=== PATIENT | male | born 1950 | race Caucasian/White ===

== ENCOUNTER → 2018-03-05 12:52 | Outpatient (CLI) | payer MEDICARE, BC, SELFPAY ==
[2018-03-05 14:18] LABS: Alanine Aminotransferase 36 IU/L (21-72); Albumin 4.2 g/dL (3.5-5.0); Albumin Globulin Ratio 1.6 (1.0-2.8); Alkaline Phosphatase 73 U/L (38-126); Aspartate Aminotransferase 29 IU/L (17-59); BUN Creatinine Ratio 26.3 (6-22); Bilirubin Total 0.7 mg/dL (0.2-1.3); Blood Urea Nitrogen 21 mg/dL (9-20); Calcium 9.3 mg/dL (8.4-10.2); Carbon Dioxide 28 mmol/L (22-32); Chloride 104 mmol/L (98-107); Estimated Glomerular Filt Rate > 60.0 mL/min (>60); Globulin 2.7 g/dL (1.7-4.1); Glucose 140 mg/dL (80-110); HEMOLYSIS < 15 (0-50); Potassium 4.6 mmol/L (3.4-5.1); Sodium 141 mmol/L (137-145); Total Protein 6.9 g/dL (6.3-8.2)
[2018-03-05 14:49] LABS: Thyroid Stimulating Hormone 1.88 uIU/mL (0.47-4.68)
[2018-03-05 15:07] LABS: Vitamin B12 693 pg/mL (239-931)
[2018-03-05 18:21] LABS: Vitamin D 25 Hydroxy (D3) 31.3 ng/mL (30.0-100.0)
== END ==
PROVIDERS: Visit Provider Psychiatry & Neurology Psychiatry
DX: F32.9 Major depressive disorder, single episode, unspecified (principal)
CPT/HCPCS: 36415; 80053; 82306; 82607; 84443

== ENCOUNTER → 2018-05-02 13:33 | Outpatient (CLI) | payer MEDICARE, BC, SELFPAY ==
--- NOTE | 2018-05-02 13:34 | DI.MRI.S_ITS ---
PROCEDURE: MR LUMBAR SPINE WO CON INDICATIONS: Lumbosacral spondylosis TECHNIQUE: Noncontrast sagittal T1 spin echo and T2 fast echo, sagittal STIR, axial T1 and T2 fast spin echo through the lumbar spine. In cases with scoliosis, additional coronal T2 fast spin echo may be performed. COMPARISON: [facility], , L-SPINE 2-3 VIEWS, 02/18/2015, 10:34. FINDINGS: Image quality: Excellent. Alignment and Curvature: Suspect transitional anatomy in Lumbar spine with prominent L1-L2 disc. There is normal bony alignment. Bone Marrow: Marrow is of normal overall signal. No acute vertebral body compression fractures. Spinal Cord: Conus medullaris terminates at the L1-L2 level. Visualized cord demonstrates normal signal and size. Paraspinous Soft Tissues: No paravertebral masses. L1-L2: Preserved disc height. Mild disc desiccation. There is mild posterior disc bulge. The central canal is patent. No foraminal stenosis. L2-L3: Mild loss of disc height and disc desiccation. There is diffuse posterior disc bulge. Mild bilateral facet arthropathy and hypertrophy of ligamentum flavum. The central canal is moderately narrowed. Moderate bilateral foraminal stenosis. L3-L4: Mild loss of disc height and disc desiccation. There is diffuse posterior disc bulge. Mild bilateral facet arthropathy and moderate hypertrophy of ligamentum flavum. The central canal is severely narrowed. Moderate bilateral foraminal stenosis. L4-L5: Mild loss of disc height and moderate disc desiccation. There is diffuse posterior disc bulge. There is superimposed posterior central disc extrusion measuring 4 x 6 x 10 mm. Mild bilateral facet arthropathy and moderate hypertrophy of ligamentum flavum. The central canal is severely narrowed. Moderate bilateral foraminal stenosis. L5-S1: Normal disc height and mild disc desiccation. There is diffuse posterior disc bulge. There is superimposed posterior central disc protrusion. Mild bilateral facet arthropathy and moderate hypertrophy of ligamentum flavum. The central canal is mildly narrowed. Severe right and moderate left foraminal stenosis. IMPRESSION: 1. Multilevel degenerative disc disease and facet arthropathy as described. 2. Severe central canal stenosis at L3-L4 and L4-L5, moderate central canal stenosis at L2-L3. 3. Multilevel foraminal stenosis as described. 4. Suspect transitional anatomy with prominent S1-S2 disc. Please confirm vertebral levels prior to any interventional procedure with surgery. Dictated by: Rojelio Dalton M.D. on 05/02/2018 at 15:08 Approved by: Rojelio Dalton M.D. on 05/02/2018 at 18:25
== END ==
PROVIDERS: Visit Provider Physical Medicine & Rehabilitation
DX: M51.36 Other intervertebral disc degeneration, lumbar region (principal); M51.37 Other intervertebral disc degeneration, lumbosacral region; M48.061 Spinal stenosis, lumbar region without neurogenic claudication; M48.07 Spinal stenosis, lumbosacral region; M47.816 Spondylosis without myelopathy or radiculopathy, lumbar region; M47.817 Spondylosis without myelopathy or radiculopathy, lumbosacral region
CPT/HCPCS: 72148

== ENCOUNTER → 2018-05-05 09:15 | Outpatient (CLI) | payer MEDICARE, BC, SELFPAY ==
[2018-05-05 10:57] LABS: Appearance Urine UA CLEAR; Bilirubin Urine UA NEGATIVE (NEGATIVE); Color Urine UA YELLOW; Glucose Urine UA NEGATIVE (Normal); Hemoglobin A1C% w Est Avg Glu 5.4 % (4.0-6.0); Ketones Urine UA NEGATIVE (NEGATIVE); Leukocyte Esterase Urine UA NEGATIVE (NEGATIVE); Nitrite Urine UA NEGATIVE (Negative); Occult Blood Urine UA NEGATIVE (Negative); Protein Urine UA NEGATIVE (Negative); Specific Gravity Urine UA 1.015 (1.000-1.035); Urobilinogen Urine UA 0.2 E.U./dL (0.2)
[2018-05-05 11:01] LABS: Add Manual Diff / Slide Review NO; Basophils Percent Auto 1.3 % (0-2); Eosinophils Percent Auto 3.3 % (2-4); Hematocrit 48.9 % (41-53); Hemoglobin 16.6 g/dL (13.5-17.5); Mean Corpuscular Hemoglobin 31.7 PG (26-34); Mean Corpuscular Volume 93.2 fL (80-100); Monocytes Percent Auto 7.9 % (3-14); Neutrophils Absolute Auto 3600 /uL (3000-5900); Neutrophils Percent Auto 67.5 % (50-75); Platelet Count 220 X10^3/uL (150-400); Red Blood Cell Count 5.25 X10^6/uL (4.5-5.9); Red Cell Distribution Width 14.5 % (11.6-14.8); White Blood Cell Count 5.3 X10^3/uL (4.5-11.0)
[2018-05-05 11:34] LABS: Alanine Aminotransferase 30 IU/L (21-72); Albumin 4.5 g/dL (3.5-5.0); Albumin Globulin Ratio 1.5 (1.0-2.8); Alkaline Phosphatase 65 U/L (38-126); Aspartate Aminotransferase 33 IU/L (17-59); BUN Creatinine Ratio 27.1 (6-22); Bilirubin Total 0.7 mg/dL (0.2-1.3); Blood Urea Nitrogen 19 mg/dL (9-20); Calcium 9.1 mg/dL (8.4-10.2); Carbon Dioxide 27 mmol/L (22-32); Chloride 102 mmol/L (98-107); Cholesterol 240 mg/dL (140-199); Estimated Glomerular Filt Rate > 60.0 mL/min (>60); Glucose 96 mg/dL (80-110); HDL Cholesterol 48 mg/dL (40-60); HEMOLYSIS < 15 (0-50); LDL Cholesterol Calculated 169 mg/dL (<100); Potassium 4.4 mmol/L (3.4-5.1); Sodium 141 mmol/L (137-145); Total Protein 7.5 g/dL (6.3-8.2); Triglycerides 115 mg/dL (35-150)
[2018-05-05 11:59] LABS: Thyroid Stimulating Hormone 3.21 uIU/mL (0.47-4.68)
== END ==
PROVIDERS: Visit Provider Family Medicine
DX: E78.5 Hyperlipidemia, unspecified (principal); F33.1 Major depressive disorder, recurrent, moderate; R73.9 Hyperglycemia, unspecified; Z51.81 Encounter for therapeutic drug level monitoring; Z12.5 Encounter for screening for malignant neoplasm of prostate
CPT/HCPCS: 36415; 80053; 80061; 81003; 83036; 84153; 84443; 85025; G0103

== ENCOUNTER 2018-06-25 13:37 | Outpatient (CLI) | payer MEDICARE, BC, SELFPAY ==
[2018-06-25] VITALS (9 sets, daily range): BP systolic 136–167; BP diastolic 72–97; PULSE 62–71; RESP 16–18; TEMP 36.1; O2SAT 95–98
--- NOTE | 2018-06-25 13:39 | DI.RAD.S_ITS ---
PROCEDURE: PAIN L/SI FACET INJ/BLK 1STL INDICATIONS: SPONDYLOSIS FINDINGS: Fluoroscopic spot filming was performed to verify placement of spinal needles at the left L4-5 and L5-S1 level(s), as labeled on the films. Appropriate location(s) of the needle tip(s) was confirmed by injection of iodinated contrast. IMPRESSION: Successful left-sided L4 and L5 facet joint injections for epidural perineural steroid administration. Dictated by: Blake Bradford M.D. on 06/25/2018 at 16:57 Approved by: Blake Bradford M.D. on 06/25/2018 at 16:58
[2018-06-25] MEDS: MIDAZOLAM 5 MG/5 ML VIAL IV (14:29)
[2018-06-25] MEDS: BETAMETHASONE 30 MG/5 ML MDV 12 MG INJ (14:35)
[2018-06-25] MEDS: LIDOCAINE 1% 20 ML INJ 10 ML INJ (14:35)
[2018-06-25] MEDS: IOPAMIDOL 15 ML VIAL 3 ML INJ (14:35)
[2018-06-25] MEDS: BUPIVACAINE 0.25% (PF) VIAL 2 ML INJ (14:36)
--- NOTE | 2018-06-25 14:42 | P.PCN_ITS ---
Procedures Date/Time Date of procedure: 06/25/18 Time of procedure: 14:42 General Procedure description: PREOP DIAGNOSIS 1. FACET ARTHROPATHY, 2. AXIAL LBP, 3. MULTILEVEL DDD, POST OP DIAGNOSIS 1. FACET ARTHROPATHY, 2. AXIAL LBP, 3. MULTILEVEL DDD, PROCEDURES 1. FLUORSCOPICALLY GUIDED CONTRAST CONTROLLED FACET JOINT INJECTIONS LEFT L4/5 , L5/S1 SURGEON: Nilesh Jones, DO INDICATIONS Ashutosh is referred by Dr. Vieira for treatment of Axial LBP FINDINGS Multilevel Facet Arthropathy with Clinically significant axial LBP DESCRIPTION OF PROCEDURE Fluoroscopically guided, contrast-controlled left L4/5, L5/S1 facet joint injections. Following denial of allergy and review of potential side effects and complications, including, but not necessarily limited to, infection, allergic reaction, local tissue breakdown, stroke, temporary or permanent nerve injury, paralysis, and possible , the patient indicated that the patient understood and agreed to proceed. An informed consent document was signed by the patient, witnessed by a nurse, and placed in the patient's chart. Additionally, other treatment options including medications, modalities, and physical therapy were reviewed with the patient. After review of previous anaesthesic history and IV conscious sedation the patient was deemed safe to proceed with todays procedure with IV conscious sedation as ASA class II designation. Safety time-out was performed to confirm patient ID, procedure to be performed and site of procedure. IV sedation was accomplished with a combination of 5mg was administered by the RN after DO order , titrated to patient comfort during the course of the procedure while the patient remained responsive to all verbal commands. In the prone position, following sterile prep and drape of the lumbar region, the posterior aspect of the left L4/5, L5/S1 facet joints were identified fluoroscopically. The skin was anesthetized via a 25-gauge 1.5-inch needle with 1% lidocaine solution into the corresponding facet joints. At this point, a 22-gauge 3.5-inch spinal needle was atraumatically introduced and advanced under fluoroscopic guidance into the corresponding facet joints. Following negative aspiration, injections of approximately 0.2-cc of Isovue 200 confirmed interarticular placement without vascular uptake. Radiological data, including multiple fluoroscopic views of the lumbosacral spine, reveal a spinal needle at the left L4/5, L5/S1 facet joints. Subsequent views show flow of contrast material both superiorly and inferiorly within the joint space without vascular or intrathecal uptake. At this point, a total of 0.5 cc including a mixture of 0.25cc Marcaine and 0.25cc betamethasone was injected without complication into each of the corresponding facet joints. The procedure tolerated the procedure well without signs or symptoms of complications prior to transfer to the recovery area continued monitoring without incident. The patient was then transferred to the recovery area where they were observed for an appropriate period of time after the injection. The patient reported a VAS score of 7 prior to the procedure and a post-procedure VAS of 0. Total Fluoroscopy Time: 12.7 seconds Total Conscious Sedation Time: 24min POST OP INSTRUCTIONS The patient was provided a Pain Log to continue to record their response to the target-specific procedure prior to follow-up visit with their referring physician. Additionally, specific post-injection care instructions and a contact number to our office were provided if concerns arise regarding possible complications associated with the procedure are suspected. Nilesh Jones DO Complications: none
--- NOTE | 2018-06-25 15:05 | PC.NURSE ---
Received pt back from post procedure at 1442 via W/C from Varsha MATHIS for continued monitoring. Pt drowsy but able to move from W/C to chair with stand by assist.
== END 2018-06-25 15:20 ==
LOC: RAD 13:38
PROVIDERS: PCP Family Medicine; Visit Provider Physical Medicine & Rehabilitation
DX: M47.817 Spondylosis without myelopathy or radiculopathy, lumbosacral region (principal); M47.816 Spondylosis without myelopathy or radiculopathy, lumbar region; M54.5 Low back pain; M51.36 Other intervertebral disc degeneration, lumbar region; M51.37 Other intervertebral disc degeneration, lumbosacral region
CPT/HCPCS: 64493; 64494; 99152; J0702; J2250

== ENCOUNTER 2018-07-29 12:59 | Outpatient (CLI) | payer MEDICARE, BC, SELFPAY ==
[2018-07-29] VITALS (8 sets, daily range): BP systolic 126–167; BP diastolic 70–86; PULSE 16–76; RESP 16–18; TEMP 36.2; O2SAT 95–98
--- NOTE | 2018-07-29 13:02 | DI.RAD.S_ITS ---
PROCEDURE: PAIN L/S TRANSFORAMINAL INJECT INDICATIONS: SPONDYLOSIS FINDINGS: Fluoroscopic spot filming was performed to verify placement of spinal needles at the L4-L5 level(s), as labeled on the films. Appropriate location(s) of the needle tip(s) was confirmed by injection of iodinated contrast. Dictated by: Dejuan Acevedo M.D. on 07/29/2018 at 16:50 Approved by: Dejuan Acevedo M.D. on 07/29/2018 at 16:50
[2018-07-29] MEDS: MIDAZOLAM 5 MG/5 ML VIAL IV (14:20)
[2018-07-29] MEDS: BUPIVACAINE 0.25% (PF) VIAL 2 ML INJ (14:23)
[2018-07-29] MEDS: methylPREDNISolone acetate 80 MG/ML VIAL INJ (14:23)
[2018-07-29] MEDS: IOPAMIDOL 15 ML VIAL 3 ML INJ (14:23)
[2018-07-29] MEDS: DEXAMETHASONE 10 MG/ML VIAL 20 MG INJ (14:23)
--- NOTE | 2018-07-29 14:27 | PC.NURSE ---
assisting pt off table and transporting pt to post proc area in stable condition
--- NOTE | 2018-07-29 14:31 | P.PCN_ITS ---
Procedures Date/Time Date of procedure: 07/29/18 Time of procedure: 14:30 General Procedure description: PREOP DIAGNOSIS 1. FORMAINAL STENOSIS WITH LE SYMPTOMS POST OP DIAGNOSIS 1. FORMAINAL STENOSIS WITH LE SYMPTOMS PROCEDURES 1. FLUOROSCOPICALLY GUIDED CONTRAST CONTROLLED TRANSFORAMINAL EPIDURAL STEROID INJECTION - LEFT L4/5 PHYSICIAN: Nilesh Jones DO INDICATIONS: Ashutosh is referred by Dr. Vieira for treatment of Foraminal Stenosis with Left LE Symptoms FINDINGS Foraminal Nerve Root Compression secondary to disc disease and facet hypertrophy DESCRIPTION OF PROCEDURE: Following denial of allergy and review of potential side effects and complications, including, but not necessarily limited to, infection, allergic reaction, local tissue breakdown, stroke, temporary or permanent nerve injury, paralysis, and possible , the patient indicated that the patient understood and agreed to proceed. An informed consent document was signed by the patient, witnessed by a nurse, and placed in the patient's chart. Additionally, other treatment options including medications, modalities, and physical therapy were reviewed with the patient. After review of previous anaesthesic history and IV conscious sedation the patient was deemed safe to proceed with todays procedure with IV conscious sedation as ASA class II designation. Safety time-out was performed to confirm patient ID, procedure to be performed and site of procedure. IV sedation was accomplished with a combination of 4mg of Versed administered by the RN after DO order, titrated to patient comfort during the course of the procedure while the patient remained responsive to all verbal commands In the prone position following sterile prep and drape of the lumbar region, the left L4/5 posterior neuroforamen was identified fluoroscopically. The skin was anesthetized via a 25-gauge 1.5-inch needle with 1% lidocaine solution. At this point, a 25-gauge 3.5-inch spinal needle was atraumatically introduced and advanced under fluoroscopic guidance through the posterior left L4/5 neuroforamen to approximately the anterior aspect of the canal. Depth was confirmed on lateral view. Following negative aspiration, injection of approximately 1.5 cc of Isovue 200 under live fluoroscopy in the AP view confirmed excellent flow along the nerve root, into the epidural space without vascular or intrathecal uptake observed Radiological data, including multiple fluoroscopic views of the lumbosacral spine, reveal a spinal needle at the left L4/5 posterior neuroforamen. Subsequent views show flow of contrast material flowing superiorly and inferiorly along the nerve root confirming epidural flow. Subsequently, a test dose of 1.5 cc of 1% lidocaine solution was administered and patient was observed for two minutes for signs or symptoms of complications , including abdominal pain, shortness of breath, bilateral upper or lower extremity weakness, nausea and vomiting, prior to steroid injection. At this point, a total of 3 cc or 20 mg of dexamethasone and 80mg Depo Medrol was injected without incident. The procedure tolerated the procedure well without signs or symptoms of complications prior to transfer to the recovery area continued monitoring without incident. The patient was then transferred to the recovery area where they were observed for an appropriate time after the injection. The patient reported a VAS score of 7 prior to the procedure and a post- procedure VAS of 0. Total Fluoroscopy Time: 20.9 seconds Total Conscious Sedation Time: 24min POST OP INSTRUCTIONS The patient was provided a Pain Log to continue to record their response to the target-specific procedure prior to follow-up visit with their referring physician. Additionally, specific post-injection care instructions and a contact number to our office were provided if concerns arise regarding possible complications associated with the procedure are suspected. Nilesh Jones DO Complications: none
--- NOTE | 2018-07-29 14:44 | PC.NURSE ---
pt returned via w/c post procedure, is alert and able to get from w/c to chair with standby asist, and resumed monitoring from keily watkins. pt arrived still sleepy.
--- NOTE | 2018-07-29 15:03 | PC.NURSE ---
increase in alertness, tolerating drinking water, eating cookies.
--- NOTE | 2018-07-30 14:04 | PC.NURSE ---
FOLLOW UP CALL MADE. PT C/O STAYED UP REALLY LATE LAST NIGHT BUT DENIES OTHER QUESTIONS/CONCERNS AND STATES PAIN IS DECREASED. I ADVISED PT TO TAKE OTC MEDS TO HELP SLEEP IF NEEDED AND EXPLAINED THAT INSOMNIA IS A COMMON SIDE EFFECT OF STEROIDS. PT VERBALIZED UNDERSTANDING. REMINDED PT TO CONTINUE PAIN LOG AND TO CALL CLINIC IF ANY CONCERNS ARISE.
== END 2018-07-29 15:33 | disposition home or self-care (01) ==
LOC: RAD 13:00
PROVIDERS: PCP Family Medicine; Visit Provider Physical Medicine & Rehabilitation
DX: M48.061 Spinal stenosis, lumbar region without neurogenic claudication (principal); M51.16 Intervertebral disc disorders with radiculopathy, lumbar region; M47.817 Spondylosis without myelopathy or radiculopathy, lumbosacral region
CPT/HCPCS: 64483; 99152; J1040; J1100; J2250

== ENCOUNTER → 2018-09-02 15:07 | Outpatient (CLI) | payer MEDICARE, BC, SELFPAY ==
--- NOTE | 2018-09-02 15:12 | DI.RAD.S_ITS ---
PROCEDURE: XR CHEST 2V INDICATIONS: cough TECHNIQUE: 2 views of the chest were acquired. COMPARISON: None. FINDINGS: Surgical changes and devices: None. Lungs and pleura: Lungs are clear. No pleural effusions or pneumothorax. Mediastinum: Mediastinal contours are normal. Heart size is normal. Bones and chest wall: No suspicious bony abnormalities. Soft tissues appear unremarkable. IMPRESSION: No acute process. Dictated by: Umer Christianson M.D. on 09/02/2018 at 15:29 Approved by: Umer Christianson M.D. on 09/02/2018 at 15:29
== END ==
PROVIDERS: PCP Family Medicine; Visit Provider Physician Assistant
DX: R05 Cough (principal)
CPT/HCPCS: 71046

== ENCOUNTER 2018-09-25 10:50 | Day surgery (SDC) | payer MEDICARE, BC, SELFPAY ==
[2018-09-25 12:12] VITALS: BP 136/79; PULSE 61; RESP 16; TEMP 36.8; O2SAT 97; BMI 33.0
[2018-09-25] MEDS: PROPARACAINE 0.5% OPHTH SOL 2 DROPS EYE-OP (12:30)
[2018-09-25] MEDS: CATARACT EYE COMPOUND (10 DROPS/SYRINGE) 3 DROPS EYE-OP (12:32)
--- NOTE | 2018-09-25 13:23 | PM.PREOP ---
Pre-operative Note Interval Note History & Physical reviewed/Exam performed by Physician: Yes Changes to H&P: No
--- NOTE | 2018-09-25 13:32 | SUR.OPER ---
Supine on eye stretcher, head on extension cradle secured with tape. Arms tucked at sides with blanket. Pillow under knees.
[2018-09-25] MEDS: PHENYLEPHRINE/LIDOCAINE VIAL (OR) 0.2 ML EYE-OP (13:35)
[2018-09-25] MEDS: MOXIFLOXACIN OPHTH DROPS 3 ML BOTTLE 2 DROPS INJ (13:35)
[2018-09-25] MEDS: BALANCED SALT IRRIG SOLN NO.2 500 ML, EPINEPHrine 1 MG IRR (13:35)
[2018-09-25] MEDS: CHONDROIDTIN/SOD HYALURONATE 1.05 ML SYRINGE INTRAOCULA (13:36)
[2018-09-25] MEDS: BALANCED SALT IRRIG SOLN NO.2 15 ML IRR (13:37)
[2018-09-25] MEDS: TETRACAINE 0.5% OPHTH DROPS 4 ML 2 DROPS EYE-RIGHT (13:37)
--- NOTE | 2018-09-25 13:49 | PM.OP.1 ---
Procedure & Clinicians Procedure: Cataract extraction with intraocular lens implant, right Same procedure as scheduled: Yes Indications: Visually significant nuclear sclerosis Surgeon: Jose Valdivia Click Yes if Unassisted: Yes Anesthesia Type: MAC +/- Operative Notes Procedure in detail: The patient was brought to the operating suite. The correct patient, surgical site and lens were confirmed. 0.5 % tetracaine drops were placed in the right eye. The patient was prepped and draped in the typical sterile manner. A lid speculum was placed in the eye. 1% lidocaine was placed on the eye. A paracentesis port was created with a side-port blade. 0.1 mL of 1% preservative free lidocaine with phenylephrine was injected into the anterior chamber. Viscoelastic was injected into the anterior chamber. A 2.6mm keratome was used to create a clear corneal temporal incision. Cystotome and Utrata forceps were used to create a continuous curvilinear capsulorrhexis. Balanced salt solution was used to hydrodissect the nucleus. Phacoemulsification was used to remove the lens. The capsular bag was inflated with viscoelastic. A Marin ZBOO +21.5D lens was inserted into the capsule. Viscoelastic was removed and the wound hydrated. The wound was found to be leak free and the eye was assessed to be at normal physiologic pressure. 0.1mL Vigamox was injected into the anterior chamber. The lid speculum was removed and the patient left the operating room in excellent condition. Complications: none Condition: stable Disposition: same day surgery
[2018-09-25 13:55] VITALS: BP 140/84; PULSE 60; RESP 16; TEMP 36.6; O2SAT 96
--- NOTE | 2018-09-25 14:10 | SUR.PHASEII ---
IV d/c'd @ 1164, catheter intact, pt. d/c'd home with friend.
== END 2018-09-25 14:12 ==
LOC: OR 10:52
PROVIDERS: PCP Family Medicine; Visit Provider Ophthalmology
DX: H25.11 Age-related nuclear cataract, right eye (principal); F41.9 Anxiety disorder, unspecified
CPT/HCPCS: J0171; J2250; J2704; J3010

== ENCOUNTER 2018-10-01 10:58 | Outpatient (CLI) | payer MEDICARE, BC, SELFPAY ==
[2018-10-01] VITALS (7 sets, daily range): BP systolic 137–187; BP diastolic 70–110; PULSE 67–76; RESP 16–18; TEMP 36.2; O2SAT 93–96
--- NOTE | 2018-10-01 11:00 | DI.RAD.S_ITS ---
PROCEDURE: PAIN L/SI FACET INJ/BLK 1STL INDICATIONS: SPONDYLOSIS FINDINGS: Fluoroscopic spot filming was performed to verify placement of spinal needles at the left L4, L5 and S1 nerve root regions, as labeled on the films. Appropriate location(s) of the needle tip(s) was confirmed by injection of iodinated contrast. IMPRESSION: Successful needle tip localization for medial branch block procedures on the left at the L4, L5 and S1 nerve root regions. Dictated by: Blake Bradford M.D. on 10/01/2018 at 12:37 Approved by: Blake Bradford M.D. on 10/01/2018 at 12:37
[2018-10-01] MEDS: MIDAZOLAM 5 MG/5 ML VIAL IV (12:01)
[2018-10-01] MEDS: IOPAMIDOL 15 ML VIAL 3 ML INJ (12:07)
[2018-10-01] MEDS: BUPIVACAINE 0.5% (PF) VIAL 2 ML INJ (12:08)
[2018-10-01] MEDS: BETAMETHASONE 30 MG/5 ML MDV 12 MG INJ (12:08)
--- NOTE | 2018-10-01 12:16 | PM.PROC.1 ---
Procedures Date/Time Date of procedure: 10/01/18 Time of procedure: 12:16 General Procedure description: POST OP DIAGNOSIS 1. FACET ARTHROPATHY PROCEDURES 1. Left L4, L5 and S1 MB BLOCKS PHYSICIAN: DO [facility] Gonzalez Ashutosh is referred by for treatment of Left Axial LBP. DESCRIPTION OF PROCEDURE Fluoroscopically guided, contrast-controlled left L4, L5 and S1 medial branch blocks with 0.5cc of 0.5% Marcaine. Following denial of allergy and review of potential side effects and complications, including, but not necessarily limited to, infection, allergic reaction, local tissue breakdown, nerve injury, paralysis, stroke and possible , the patient indicated that the patient understood and agreed to proceed. An informed consent document was signed by the patient, witnessed by a nurse, and placed in the patient's chart. After review of previous anaesthesic history and IV conscious sedation the patient was deemed safe to proceed with todays procedure with IV conscious sedation as ASA class II designation. Safety time-out was performed to confirm patient ID, procedure to be performed and site of procedure. IV sedation was accomplished with a combination of 3mg of Versed was administered by the RN after DO order, titrated to patient comfort during the course of the procedure while the patient remained responsive to all verbal commands. In the prone position, following sterile prep and drape of the lumbar region, the left L4, L5 and S1 anatomical location of the medial branch of the dorsal ramus was identified fluoroscopically. Subsequently an anesthetic skin wheal using 1% lidocaine solution was initiated at each of the anatomical spots. Subsequently then a 22-gauge 3.5-inch spinal needle was atraumatically introduced and advanced under fluoroscopic guidance at each of the corresponding sites at the left L4, L5 and S1 MB. After negative aspiration, 0.2 cc of Isovue 200 was injected, confirming placement without vascular or intrathecal uptake. Subsequently then 0.5 cc of 0.5% Marcaine solution was injected at each of the corresponding sites at the left L4, L5 and S1 medial branch locations. The patient tolerated the procedure well without signs or symptoms of complications. The patient tolerated the procedure well without signs or symptoms of complications prior to transfer to the recovery area continued monitoring without incident. Post-procedure, the patient was monitored initiating provocative activities to measure the amount of relief from block of the facetogenic pain. The patient reported a VAS of 7 prior to the procedure and a post-procedure VAS of 1. It has been a pleasure to assist in the diagnostic and therapeutic care of your patient. Total Fluoroscopy Time: 24.8 seconds Total Conscious Sedation Time: 24min POST OP INSTRUCTIONS The patient was provided with a Pain Log to complete over the next several hours and subsequent days prior to the patient's follow up with the ordering physician. If the patient has learning officer relief to the solution applied, then they may be a candidate for medial branch rhizotomy. The patient is aware, was provided, once again, with a Pain Log and will follow up with the referring physician for review and clinical correlation Nilesh Jones DO Complications: none
--- NOTE | 2018-10-01 12:21 | PC.NURSE ---
pt tolerated procedure well. Able to get off table on own power. Standby assist to the wheel chair. Transferred pt via wheelchair where I resumed caring for pt.
--- NOTE | 2018-10-01 12:24 | PC.NURSE ---
Resumed monitoring pt on arrival to pre procedure room.
== END 2018-10-01 13:14 | disposition home or self-care (01) ==
LOC: RAD 11:00
PROVIDERS: PCP Family Medicine; Visit Provider Physical Medicine & Rehabilitation
DX: M47.817 Spondylosis without myelopathy or radiculopathy, lumbosacral region (principal); M47.816 Spondylosis without myelopathy or radiculopathy, lumbar region; M51.26 Other intervertebral disc displacement, lumbar region
CPT/HCPCS: 64493; 64494; 64495; 99152; J0702; J2250; J3010

== ENCOUNTER → 2019-02-10 08:23 | Outpatient (CLI) | payer MEDICARE, BC, SELFPAY ==
[2019-02-10 09:18] LABS: Cholesterol 195 mg/dL (140-199); HDL Cholesterol 42 mg/dL (40-60); LDL Cholesterol Calculated 123 mg/dL (<100); Triglycerides 151 mg/dL (35-150)
== END ==
PROVIDERS: Family Provider Naturopath; PCP Family Medicine; Visit Provider Family Medicine
DX: E78.5 Hyperlipidemia, unspecified (principal)
CPT/HCPCS: 36415; 80061

== ENCOUNTER 2019-02-10 13:09 | Outpatient (CLI) | payer MEDICARE, BC, SELFPAY ==
[2019-02-10] VITALS (8 sets, daily range): BP systolic 126–154; BP diastolic 66–77; PULSE 69–79; RESP 16–18; TEMP 36.5; O2SAT 95–99
--- NOTE | 2019-02-10 13:12 | DI.RAD.S_ITS ---
PROCEDURE: PAIN L/SI FACET INJ/BLK 1STL INDICATIONS: SPONDYLOSIS FINDINGS: Fluoroscopic spot filming was performed to verify placement of spinal needles at the L4, L5, S1 level(s), as labeled on the films. Appropriate location(s) of the needle tip(s) was confirmed by injection of iodinated contrast. Dictated by: Dejuan Acevedo M.D. on 02/10/2019 at 15:22 Approved by: Dejuan Acevedo M.D. on 02/10/2019 at 15:22
[2019-02-10] MEDS: MIDAZOLAM 5 MG/5 ML VIAL IV (14:00)
[2019-02-10] MEDS: fentaNYL 100 MCG/2 ML INJ 50 MCG IV (14:00)
[2019-02-10] MEDS: IOPAMIDOL 15 ML VIAL 3 ML INJ (14:09)
[2019-02-10] MEDS: BUPIVACAINE 0.5% (PF) VIAL 2 ML INJ (14:09)
[2019-02-10] MEDS: BETAMETHASONE 30 MG/5 ML MDV 12 MG INJ (14:09)
--- NOTE | 2019-02-10 14:13 | PC.NURSE ---
ASSISTING PT OFF TABLE AND TRANSPORTING TO POST PROC AREA IN STABLE CONDITION
--- NOTE | 2019-02-10 14:16 | P.PCN_ITS ---
Procedures Date/Time Date of procedure: 02/10/19 Time of procedure: 14:15 General Procedure description: Procedure description: 1. FACET ARTHROPATHY PROCEDURES: 1. BILATERAL- L4, L5 and S1 MB BLOCKS PHYSICIAN: DO [facility] Gonzalez Ashutosh is referred by for treatment of Bilateral Axial LBP. DESCRIPTION OF PROCEDURE Fluoroscopically guided, contrast-controlled bilateral L4, L5 and S1 medial branch blocks with 0.5cc of 0.5% Marcaine. Following review of allergy and review of potential side effects and complications, including, but not necessarily limited to, infection, allergic reaction, local tissue breakdown, nerve injury, paralysis, stroke and possible , the patient indicated that the patient understood and agreed to proceed. An informed consent document was signed by the patient, witnessed by a nurse, and placed in the patient's chart. After review of previous anaesthesic history and IV conscious sedation the patient was deemed safe to proceed with todays procedure with IV conscious sedation as ASA class II designation. Safety time-out was performed to confirm patient ID, procedure to be performed and site of procedure. IV sedation was accomplished with a combination of 3mg of Versed and 50mcg of Fentanyl was administered by the RN after DO order, titrated to patient comfort during the course of the procedure while the patient remained responsive to all verbal commands In the prone position, following sterile prep and drape of the lumbar region, the right L4, L5 and S1 anatomical location of the medial branch of the dorsal ramus was identified fluoroscopically. Subsequently an anesthetic skin wheal using 1% lidocaine solution was initiated at each of the anatomical spots. Subsequently then a 22-gauge 3.5-inch spinal needle was atraumatically introduced and advanced under fluoroscopic guidance at each of the corresponding sites at the right L4, L5 and S1 MB. After negative aspiration, 0.2 cc of Isovue 200 was injected, confirming placement without vascular or intrathecal uptake. Subsequently then 0.5 cc of 0.5% Marcaine solution was injected at each of the corresponding sites at the right L4, L5 and S1 medial branch locations. The identical procedure was replicated on the left. The patient tolerated the procedure well without signs or symptoms of complications prior to transfer to the recovery area continued monitoring without incident. Post-procedure, the patient was monitored initiating provocative activities to measure the amount of relief from block of the facetogenic pain. The patient reported a VAS of 7 prior to the procedure and a post-procedure VAS of 1. It has been a pleasure to assist in the diagnostic and therapeutic care of your patient. Total Fluoroscopy Time: 24.8 seconds Total Conscious Sedation Time: 24min POST OP INSTRUCTIONS The patient was provided with a Pain Log to complete over the next several hours and subsequent days prior to the patient's follow up with the ordering physician. If the patient has library sales consultant relief to the solution applied, then they may be a candidate for medial branch rhizotomy. The patient is aware, was provided, once again, with a Pain Log and will follow up with the referring physician for review and clinical correlation Nilesh Jones DO
--- NOTE | 2019-02-10 14:20 | PC.NURSE ---
Pt returned from procedure via wheelchair awake and alert, able to transfer from w/c to chair with standby assist. Resumed monitoring from Varsha MATHIS.
== END 2019-02-10 14:37 ==
LOC: RAD 13:10
PROVIDERS: Family Provider Naturopath; PCP Family Medicine; Visit Provider Physical Medicine & Rehabilitation
DX: M47.817 Spondylosis without myelopathy or radiculopathy, lumbosacral region (principal); M48.061 Spinal stenosis, lumbar region without neurogenic claudication
CPT/HCPCS: 64493; 64494; 99152; J0702; J2250; J3010

== ENCOUNTER → 2019-03-23 12:33 | Outpatient (CLI) | payer MEDICARE, BC, SELFPAY ==
--- NOTE | 2019-03-23 12:38 | DI.RAD.S_ITS ---
PROCEDURE: XR CERVICAL SPINE 4V OR 5V INDICATIONS: Neck pain upper extremity paresthesias TECHNIQUE: 5 views of the cervical spine acquired. COMPARISON: None. FINDINGS: Bones: No fractures or dislocations to the C7 level. Straightening of the normal lordotic curvature. Multilevel degenerative endplate sclerosis and spurring. Diffuse facet arthropathy. Chronic corticated ossifications project in the posterior paraspinal soft tissues at the level of C5-C6. Moderate C6-7 disc space narrowing. On the right mild diffuse bony foraminal stenoses. On the left, there is diffuse moderate to severe bony foraminal stenoses, not well visualized. This could be further assessed with dedicated MRI. Soft tissues: No prevertebral soft tissue swelling. IMPRESSION: Multilevel cervical spondylosis most pronounced at C6-C7. Straightening of the normal lordotic curvature. Diffuse bilateral bony foraminal stenoses, left much greater than right. Dictated by: Dejuan Acevedo M.D. on 03/23/2019 at 17:25 Approved by: Dejuan Acevedo M.D. on 03/23/2019 at 17:27
== END ==
PROVIDERS: PCP Family Medicine; Visit Provider Physical Medicine & Rehabilitation
DX: M54.2 Cervicalgia (principal); R20.2 Paresthesia of skin; M47.22 Other spondylosis with radiculopathy, cervical region; M48.02 Spinal stenosis, cervical region
CPT/HCPCS: 72050; 99214

== ENCOUNTER 2019-05-05 07:22 | Outpatient (CLI) | payer MEDICARE, BC, SELFPAY ==
[2019-05-05] VITALS (14 sets, daily range): BP systolic 128–156; BP diastolic 64–88; PULSE 57–71; RESP 16; TEMP 36.1; O2SAT 94–97
--- NOTE | 2019-05-05 07:23 | DI.RAD.S_ITS ---
PROCEDURE: PAIN L/S MED/LAT N RFA BILAT INDICATIONS: SPONDYLOSIS FINDINGS: Fluoroscopic spot filming was performed to verify placement of spinal needles at the L4, L5, S1 level(s), as labeled on the films. Appropriate location(s) of the needle tip(s) was confirmed by injection of iodinated contrast. Dictated by: Dejuan Acevedo M.D. on 05/05/2019 at 10:34 Approved by: Dejuan Acevedo M.D. on 05/05/2019 at 10:35
[2019-05-05] MEDS: fentaNYL 100 MCG/2 ML INJ 50 MCG IV (08:37)
[2019-05-05] MEDS: MIDAZOLAM 5 MG/5 ML VIAL IV (08:37)
[2019-05-05] MEDS: BUPIVACAINE 0.5% (PF) VIAL 2 ML INJ (09:04)
[2019-05-05] MEDS: BETAMETHASONE 30 MG/5 ML MDV 12 MG INJ (09:05)
[2019-05-05] MEDS: LIDOCAINE 1% 20 ML 10 ML INJ (09:05)
--- NOTE | 2019-05-05 09:25 | P.PCN_ITS ---
Procedures Date/Time Date of procedure: 05/05/19 Time of procedure: 09:25 General Procedure description: PREOP DIAGNOSIS 1. RECALCITRANT FACET ARTHROPATHY, POST OP DIAGNOSIS 1. RECALCITRANT FACET ARTHROPATHY PROCEDURES 1. BILATERAL L4 AND L5 MEDIAL BRANCH RADIOFREQUENCY NEUROTOMY AND S1 DORSAL RAMUS BRANCH RADIOFREQUENCY NEUROTOMY, PHYSICIAN: Nilesh Jones DO INDICATIONS: Ashutosh is referred by Dr. Vieira for treatment of facet arthropathy. DESCRIPTION OF PROCEDURE Right L4 and L5 medial branch radiofrequency neurotomy and right S1 dorsal ramus radiofrequency neurotomy under fluoroscopy with conscious sedation. The patient is well known to this clinic having undergone previous facet injections with good but temporary relief. The patient has experienced appropriate, concordant relief with previous facet and median branch blocks but the patient's pain has been recalcitrant to further conservative measures. Therefore, based upon the patient's relief and persistent symptoms, the patient is considered an appropriate candidate for facet rhizotomy. All of the patient's questions regarding the risks versus benefits of the procedure, including, but not limited to, bleeding, infection, temporary as well as lasting nerve injury, paralysis, stroke, and , as well treatment alternatives were answered to satisfaction. After obtaining informed consent, denial of pertinent drug allergies, as well as being made aware of the potential risks of bleeding, infection, spinal cord trauma, paralysis, temporary and permanent nerve damage, seizure, stroke, and possible , the patient was brought to the fluoroscopy suite and positioned prone on the fluoroscopy table. The lumbar region was prepped with Betadine and covered with a fenestrated drape in the usual sterile fashion. Appropriate monitors applied including pulse oximeter, pulse, and blood pressure for regular monitoring throughout the procedure. After review of previous anaesthesic history and IV conscious sedation the patient was deemed safe to proceed with todays procedure with IV conscious sedation as ASA class II designation. Safety time-out was performed to confirm patient ID, procedure to be performed and site of procedure. IV sedation was accomplished with a combination of 4mg of Versed and 50mcg of Fentanyl administered by the RN after DO order, titrated to patient comfort during the course of the procedure while the patient remained responsive to all verbal commands. After local infiltration using 1% lidocaine, under fluoroscopic guidance, a 10- cm RF insulated needle with a 10-mm active tip was positioned parallel to the j unction of the right sacral ala and the superior articulating process where the S1 dorsal ramus resides. Needle placement was confirmed with sensory stimulation at 50 Hz, with motor stimulation of .5v on the right which produced local stimulation without radicular component. The stimulation was then increased to 1.5v with, once again, only local multifidus stimulation without radicular component. This was then followed by two discreet lesions performed at 80 degrees Celsius for 90 seconds each. The needle was then removed and the identical procedure was performed along the length of the right L5 medial branch with motor stimulation at .7v on the right. The identical procedure was once again performed along the length of the right L4 medial branch with motor stimulation of .5v on the right. The identical procedure was repeated on the left. The patient tolerated the procedure well without signs or symptoms of complications prior to transfer to the recovery area continued monitoring without incident. The patient was then transferred to the recovery area where they were observed for an appropriate period of time after the injection. The patient reported a VAS score of 7 prior to the procedure and a post-procedure VAS of 1. Total Fluoroscopy Time: 22.7 seconds Total Conscious Sedation Time: 34min POST OP INSTRUCTIONS The patient was provided a Pain Log to continue to record the patient's response to the target-specific procedure prior to the patient's follow-up visit with the referring physician. Additionally, specific post-injection care instructions and a contact number to our office were provided if concerns arise regarding possible complications associated with the procedure are suspected. Nilesh Jones DO Complications: none
--- NOTE | 2019-05-05 09:30 | PC.NURSE ---
ACCEPTED CARE OF PT IN POST PROC AREA IN STABLE CONDITION.
--- NOTE | 2019-05-05 09:30 | PC.NURSE ---
Post procedure transfer note: VSS and O2 sat stable throughout procedure. Transfered to wheelchair from procedure table without difficulties. Pain level 07/03. Hand off report given to Lori Tapia at [id number]
== END 2019-05-05 09:54 | disposition home or self-care (01) ==
LOC: RAD 07:23
PROVIDERS: PCP Family Medicine; Visit Provider Physical Medicine & Rehabilitation
DX: M47.816 Spondylosis without myelopathy or radiculopathy, lumbar region (principal); M47.817 Spondylosis without myelopathy or radiculopathy, lumbosacral region
CPT/HCPCS: 64635; 64636; 99152; 99153; J0702; J2250; J3010

== ENCOUNTER → 2019-05-28 09:41 | Outpatient (CLI) | payer MEDICARE, BC, SELFPAY | PROVIDERS: PCP Family Medicine; Visit Provider Physical Medicine & Rehabilitation | DX: G56.03 Carpal tunnel syndrome, bilateral upper limbs (principal) | CPT/HCPCS: 95886; 95911 ==

== ENCOUNTER → 2019-06-15 11:26 | Outpatient (CLI) | payer MEDICARE, BC, SELFPAY ==
--- NOTE | 2019-06-15 | DI.RAD.S_ITS ---
PROCEDURE: FL WRIST INJECTION MR/CT LT INDICATIONS: LEFT WRIST PAIN TECHNIQUE: After informed consent had been obtained, the wrist was examined fluoroscopically, and a site chosen for injection of the radiocarpal compartment from a dorsal approach. Skin was prepped and draped in a sterile fashion and 1% lidocaine infiltrated from the skin down to the articular surface. A hypodermic needle was then introduced into the articular space and a modest amount of contrast medium was instilled confirming intra-articular needle tip placement. This was followed by approximately 5 mL of a dilute gadolinium solution. Needle was removed and dressing was applied. The patient experienced no complications throughout the procedure and left the fluoroscopic suite in no apparent distress. FINDINGS: A single fluoroscopic spot image demonstrates intra-articular location of injected iodinated contrast within the radiocarpal joint. IMPRESSION: Successful fluoroscopic-guided administration of dilute Gadolinium solution for left wrist MR arthrogram. Dictated by: Boris Jimenez M.D. on 06/15/2019 at 13:33 Approved by: Boris Jimenez M.D. on 06/15/2019 at 13:34
--- NOTE | 2019-06-15 | DI.MRI.S_ITS ---
PROCEDURE: MR WRIST LT W CON INDICATIONS: LEFT WRIST PAIN TECHNIQUE: After the administration of 3-4 mL of dilute intra-articular Gadolinium contrast into the radiocarpal compartment, coronal T1 spin echo with fat saturation and T2 fast spin echo with fat saturation, axial T1 spin echo and T2 fast spin echo with fat saturation, sagittal T1 spin echo with and without fat saturation through the wrist. COMPARISON: None. FINDINGS: Image quality: Excellent. Bones and cartilage: Osteophytic changes are noted throughout wrist joints with joint space narrowing, subchondral sclerosis and prominent intraosseous cyst formation particularly involving radial aspect of right wrist most prominent at first CMC joint. No acute fracture or dislocation is seen. Carpal ligaments: The scapholunate and lunotriquetral ligaments appear intact, without gadolinium extravasation into the mid-carpal compartment. The radioscaphocapitate and radiolunotriquetral ligaments appear intact. The arcuate ligament and short radiolunate ligament also appear normal. The dorsal intercarpal and radiotriquetral ligaments appear intact. On sagittal images, the pisohamate ligament appears intact. Triangular fibrocartilage complex: There is suggestion of focal perforation involving regular fibrocartilage near its radial insertion. There is also to regular fibrocartilage tear near its ulnar insertion. No gadolinium extravasation into the distal radioulnar joint. The adjacent meniscal homolog appears normal. The ulnar collateral ligament appears intact. The extensor carpi ulnaris tendon is normal in location and morphology. Tendons and soft tissues: The carpal tunnel structures appear normal, including the median nerve. The ulnar nerve appears normal within Guyon's canal. All six extensor tendon compartments demonstrate normal morphology, without pathologic tendon sheath fluid. No soft tissue ganglion cysts. IMPRESSION: 1. Moderate osteoarthritis throughout wrist joints most prominent involving first CMC joint. No fracture or dislocation. Prominent intraosseous cyst formation are noted throughout carpal bones most prominent involving distal scaphoid. 2. Suggestion of triangular fibrocartilage tear near its radial and ulnar insertions with contrast extending to the distal radial ulnar joint space. 3. Scapholunate and lunotriquetral ligaments are intact. Wrist tendons are intact. Dictated by: Joey Huffman M.D. on 06/15/2019 at 14:11 Approved by: Joey Huffman M.D. on 06/15/2019 at 14:21
== END ==
PROVIDERS: PCP Family Medicine; Visit Provider Orthopaedic Surgery
DX: M25.532 Pain in left wrist (principal); M18.12 Unilateral primary osteoarthritis of first carpometacarpal joint, left hand
CPT/HCPCS: 20605; 73222; 76000

== ENCOUNTER → 2019-08-04 07:03 | Outpatient (CLI) | payer MEDICARE, BC, SELFPAY ==
--- NOTE | 2019-08-04 | DI.MRI.S_ITS ---
PROCEDURE: MR LUMBAR SPINE WO CON INDICATIONS: Anesthesia of skin TECHNIQUE: Noncontrast sagittal T1 spin echo and T2 fast echo, sagittal STIR, axial T1 and T2 fast spin echo through the lumbar spine. In cases with scoliosis, additional coronal T2 fast spin echo may be performed. COMPARISON: [facility], MR, MR LUMBAR SPINE WO CON, 05/02/2018, 13:53. FINDINGS: Image quality: Excellent. Alignment and Curvature: 5 lumbar type vertebral bodies with a transitional S1 element present by plain film. The same numbering system which was used on the prior report will be employed on the current report. There is loss of normal lumbar lordosis. Bone Marrow: Marrow is of normal overall signal. No acute vertebral body compression fractures. There is mild reactive signal within the endplates adjacent to the L3-L4, L4-L5, and L5-S1 intervertebral discs. Spinal Cord: Conus medullaris terminates at the mid L2 level. Visualized cord demonstrates normal signal and size. Paraspinous Soft Tissues: No paravertebral masses. L1-L2: Mild disc desiccation. Mild diffuse disc bulge. Mild facet and ligamentum flavum hypertrophy. Mild epidural lipomatosis. Mild canal stenosis. No foraminal stenosis. No change. L2-L3: Mild disc desiccation. Mild diffuse disc bulge. Mild facet and ligament flavum hypertrophy. Mild epidural lipomatosis. Moderate canal stenosis. Mild bilateral foraminal stenosis. No change. L3-L4: Moderate disc height loss and desiccation. Moderate diffuse disc bulge. Moderate facet and ligamentum flavum hypertrophy. Mild epidural lipomatosis. There is increased, severe canal stenosis. No change in moderate subarticular foraminal stenosis bilaterally. L4-L5: Moderate disc height loss and desiccation. Severe diffuse disc bulge with superimposed central protrusion. Mild facet and ligamentum flavum hypertrophy bilaterally. Mild epidural lipomatosis. Increased, severe canal stenosis. No change in moderate subarticular foraminal stenosis bilaterally. L5-S1: Moderate disc height loss and desiccation. Moderate diffuse disc bulge. Moderate facet and ligamentum flavum hypertrophy. Mild canal stenosis. Severe right and moderate left subarticular foraminal stenosis. Right L5 nerve root compression. No change. IMPRESSION: 1. 5 lumbar type vertebral bodies with a transitional element at S1 are present. The numbering system for the current report is as denoted on the montage panel. 2. Multilevel degenerative disc and facet disease, as well as ligamentum flavum hypertrophy and epidural lipomatosis. 3. Multilevel canal stenoses, worst at L3-L4 and L4-L5, where there are increased, severe canal stenoses. 4. Multilevel foraminal stenoses, worst on the right at L5-S1 where there is associated L5 nerve root compression. Dictated by: Umer Christianson M.D. on 08/04/2019 at 9:36 Approved by: Umer Christianson M.D. on 08/04/2019 at 9:47
--- NOTE | 2019-08-04 | DI.NM.S_ITS ---
PROCEDURE: NM BONE 3 PHASE RADIOPHARMACEUTICAL: 19.5 mCi Tc-99m MDP IV. INDICATIONS: Anesthesia of skin TECHNIQUE: Multiple bone scintigrams were obtained after intravenous injection of Tc-99m MDP, including flow, blood pool, and delayed images centered to the region of interest. COMPARISON: [facility], CR, KNEE 3V LEFT, 03/17/2015, 23:06. Outside Facility, RG, XR KNEE 3V RIGHT, 10/02/2017, 10:32. FINDINGS: Bilateral knee arthroplasty has been performed. Blood flow images of the bilateral knees demonstrate expected photopenic defects following urethroplasty, but are otherwise unremarkable. Blood pool images and delayed images demonstrate mildly increased radiotracer uptake surrounding the bilateral knee arthroplasties within the distal femora and proximal tibiae. IMPRESSION: 1. Slightly increased blood pool and delayed radiotracer uptake surrounding the bilateral knee arthroplasties, which could indicate low grade/early infection or loosening. Dictated by: Umer Christianson M.D. on 08/04/2019 at 16:21 Approved by: Umer Christianson M.D. on 08/04/2019 at 16:24
== END ==
PROVIDERS: PCP Family Medicine; Referring Provider Orthopaedic Surgery; Visit Provider Orthopaedic Surgery
DX: R20.0 Anesthesia of skin (principal); M51.36 Other intervertebral disc degeneration, lumbar region; M51.37 Other intervertebral disc degeneration, lumbosacral region; M48.061 Spinal stenosis, lumbar region without neurogenic claudication; M48.07 Spinal stenosis, lumbosacral region; E88.2 Lipomatosis, not elsewhere classified; Z96.653 Presence of artificial knee joint, bilateral
CPT/HCPCS: 72148; 78315; A9503

== ENCOUNTER 2019-08-22 08:25 | Emergency (ER) | payer MEDICARE, BC, SELFPAY ==
[2019-08-22 08:34] VITALS: BP 202/96; PULSE 88; RESP 18; TEMP 37.2; O2SAT 98; BMI 33.7
--- NOTE | 2019-08-22 08:37 | ED.BACK ---
HPI - Back Pain/Injury General Chief Complaint: Back Pain/Injury Stated Complaint: lower back pain,numbness in foot/right leg twitch Time Seen by Provider: 08/22/19 08:30 Source: patient Mode of arrival: Ambulatory Limitations: no limitations History of Present Illness HPI Narrative: 68M former smoker with history hypertension, bipolar and chronic back pain presents with a chief complaint of worsening right lower back pain with radiation down his right leg and some numbness and tingling. He recently had an MRI and is under the care of Dr. Jones already. He states that he was trying to take his shoe off yesterday and felt a sudden increasing of pain that radiates as stated. He denies any weakness. He denies any fever or chills. He denies any trouble controlling bowel or bladder. He has no foot drop. His pain is worse when he moves and improves with rest. He already has Vicodin and oxycodone at home as well as prescriptions for Lyrica and gabapentin and finally Celebrex. MD Complaint: back pain Onset (ago): hour(s) Duration: constant Similar Symptoms Previously: Yes Location: lumbar spine Severity: moderate Quality: sharp and stabbing Radiation: right leg Relieving factors: immobilization Exacerbating factors: movement and walking Context: bending Associated symptoms: numbness and difficulty walking Related Data Home Medications Medication Instructions Recorded Confirmed magnesium citrate 4 gram oral 100 mg PO BEDTIME 06/30/19 08/14/19 packet turmeric (bulk) 95 % powder % MISC 08/14/19 08/14/19 Previous Rx's Medication Instructions Recorded celecoxib 200 mg capsule 200 mg PO DAILY PRN #30 cap 06/08/19 pregabalin 75 mg capsule 150 mg PO BID #120 cap 08/14/19 prednisone 10 mg PO DAILY #30 tab 08/22/19 Allergies Allergy/AdvReac Type Severity Reaction Status Date / Time bacitracin [BACITRACIN] Allergy Mild Rash Verified 08/22/19 08:39 neomycin [NEOMYCIN] Allergy Mild Rash Verified 08/22/19 08:39 polymyxin B [POLYMYXIN B] Allergy Mild Rash Verified 08/22/19 08:39 Review of Systems Constitutional Constitutional: Denies chills, Denies fatigue, Denies fever(s), Denies frequent falls, Denies lethargy and Denies weakness Eyes Eyes: Denies change in vision, Denies eye discharge, Denies irritation and Denies loss of vision ENT Ears, Nose, Mouth, and Throat: Denies change in voice, Denies dizziness, Denies neck pain, Denies sore throat and Denies throat swelling Cardiovascular Cardiovascular: Denies chest pain, Denies irregular heart rhythm, Denies lightheadedness, Denies palpitations, Denies dyspnea, Denies dyspnea on exertion and Denies orthopnea Respiratory Respiratory: Denies cough, Denies dyspnea, Denies dyspnea on exertion and Denies wheezing Gastrointestinal Gastrointestinal: Denies abdominal pain, Denies change in bowel habits, Denies diarrhea, Denies nausea and Denies vomiting Genitourinary Genitourinary: Denies hematuria, Denies flank pain, Denies urinary incontinence and Denies urinary urgency Musculoskeletal Musculoskeletal: Reports back pain, Denies muscle weakness, Denies neck pain, Denies numbness, Reports radiating pain into limb and Denies tingling Integumentary/Breasts Skin/Breast: Denies pruritus, Denies erythema, Denies rash and Denies wounds Neurologic Neurologic: Denies behavioral changes, Denies confusion, Denies dizziness, Denies frequent falls, Denies loss of vision, Denies numbness, Denies tingling and Denies weakness Psychiatric Psychiatric: Denies anxiety, Denies behavioral changes, Denies confusion, Denies depression, Denies homicidal ideation and Denies suicidal ideation Endocrine Endocrine: Denies fatigue, Denies flushing and Denies palpitations Hematologic/Lymphatic Hematologic/Lymphatic: Denies easy bruising Allergic/Immunologic Allergic/Immunologic: Denies urticaria, Denies throat swelling and Denies wheezing Patient History Medical History Bipolar I, recurrent manic episode, partial remission (Acute) Cervical radiculopathy (Suspected) Chronic knee pain after total replacement of both knee joints (Acute) Lumbar spinal stenosis (Chronic) Family History Mother Dementia Father Lung cancer Cirrhosis of liver Social History household members: friend(s) Smoking Status: Former smoker (quit 1981; smoked for 12 years) Smoking Status: Former smoker (quit 1981; smoked for 12 years) Exam Narrative Exam Narrative: GENERAL: [] 68 year old patient appears stated age. Well-nourished, well-developed patient, in mild distress. HEAD: Atraumatic. Normocephalic. EYES: Pupils equal round and reactive. Extraocular motions intact. No scleral icterus. No injection or drainage. ENT: Nose without bleeding, purulent drainage. Throat without erythema, tonsillar hypertrophy or exudate. Airway patent. NECK: Trachea midline. Non tender CARDIOVASCULAR: Regular rate and rhythm without murmurs, gallops, or rubs. RESPIRATORY: Clear to auscultation. Breath sounds equal bilaterally. No wheezes, rales, or rhonchi. GASTROINTESTINAL: Abdomen soft, non-tender, nondistended. EXTREMITIES: No edema or joint tenderness. BACK: lubricating machine tender but free of any obvious external abnormalities. Patient exam notes decreased range of motion and muscle spasm, but no CVA tenderness, or vertebral point tenderness. There are no symptoms of cauda equina such as saddle anesthesia, and decreased reflexes, decreased sensation or strength. NEURO: AOx3. SKIN: No rash or erythema of visible areas Initial Vital Signs Initial Vital Signs: Vital Signs Temperature 99.0 F 08/22/19 08:34 Pulse Rate 88 08/22/19 08:34 Respiratory Rate 18 08/22/19 08:34 Blood Pressure 202/96 H 08/22/19 08:34 Pulse Oximetry 98 08/22/19 08:34 Course Course Course Narrative: MRI reviewed. Multiple etiologies of back pain considered including; Epidural abscess, cauda equina, mass occupying lesion, and other considered Orders Ordered: Discontinued Medications Ketorolac Tromethamine (Toradol) 60 mg IM NOW ONE Stop: 08/22/19 08:40 Last Admin: 08/22/19 08:52 Dose: 60 mg Documented by: DONY Prednisone (Deltasone) 60 mg PO NOW ONE Stop: 08/22/19 08:40 Last Admin: 08/22/19 08:52 Dose: 60 mg Documented by: DONY Vital Signs Vital signs: Vital Signs - 8 hr 08/22/19 08:34 Temperature 99.0 F Pulse Rate 88 Respiratory Rate 18 Blood Pressure 202/96 H Pulse Oximetry 98 Discharge Plan Departure Patient Disposition: Home Clinical Impression: Sciatica Qualifiers: Laterality: right Qualified Code(s): M54.31 - Sciatica, right side Discharge Date/Time: 08/22/19 09:12 Instructions: DI for Back Pain With Sciatica Activity Restrictions/Additional Instructions: *You have been diagnosed with [right-sided lumbar sciatica] *What to do: *Take medications as directed *Follow up with your primary care provider in 2-3 days, call for an appointment. Let them know you were seen in the Emergency Department and that we ask that you be seen in follow up *Return to ER if you should have any new, worsening or concerning symptoms, such as [loss of control of bowel or bladder, weakness of lower extremities or other bothersome symptoms] Prescriptions: New prednisone 10 mg tablet 10 mg PO DAILY Qty: 30 RF: 0 No Action magnesium citrate 4 gram packet 100 mg PO BEDTIME RF: 0 Curcumin 95 % powder MISC RF: 0 pregabalin 75 mg capsule 150 mg PO BID Qty: 120 RF: 0 celecoxib [Celebrex] 200 mg capsule 200 mg PO DAILY PRN (Reason: pain) Qty: 30 RF: 2 Referrals: Nilesh Jones DO [Physician] - Kelsy Vieira DO [Physician] -
[2019-08-22] MEDS: predniSONE 20 MG TABLET 60 MG PO (08:52)
[2019-08-22] MEDS: KETOROLAC 60 MG/2 ML VIAL IM (08:52)
== END 2019-08-22 09:12 | disposition home or self-care (01) ==
PROVIDERS: Emergency Provider Emergency Medicine; PCP Family Medicine
DX: M54.31 Sciatica, right side (principal)
CPT/HCPCS: 96372; 99283; J1885

== ENCOUNTER 2019-12-21 06:59 | Emergency (ER) | payer MEDICARE, BC, SELFPAY ==
[2019-12-21] VITALS (15 sets, daily range): BP systolic 148–187; BP diastolic 70–100; PULSE 60–77; RESP 16–30; TEMP 36.6; O2SAT 92–99
--- NOTE | 2019-12-21 07:15 | ED.BACK ---
HPI - Back Pain/Injury General Chief Complaint: Back Pain/Injury Stated Complaint: Back Pain Time Seen by Provider: 12/21/19 07:00 History of Present Illness HPI Narrative: 69-year-old gentleman status post 3 level laminectomy lumbar region on November 26. Had been healing nicely until approximately 2 weeks after surgery. Narcotics were necessarily only for 5 days postop. He describes being out for a walk, had a misstep and used his lower back muscles to correct and prevent a fall. After that, he did notice some increased muscle strain. Again that began to improve and then over the last 3 days he has noticed increasing lower back spasm and pain to the point that is difficult to turn over set up or walk. He is not noticing fevers, rashes, numbness or weakness. States that he has been urinating and stooling appropriately. This morning he was hurting so much he was unable to get out of bed and ended up having a bowel movement in bed simply because of the severity of pain. At this point he has oxycodone still left over, was recently started on cyclobenzaprine for muscle spasm that has been moderately effective only over the last 1-2 days, Aleve and gabapentin. Related Data Home Medications Medication Instructions Recorded Confirmed magnesium citrate 4 gram oral 100 mg PO BEDTIME 06/30/19 08/14/19 packet Previous Rx's Medication Instructions Recorded prednisone 10 mg PO DAILY #30 tab 08/22/19 celecoxib 200 mg capsule 200 mg PO DAILY PRN #30 cap 09/07/19 gabapentin 300 mg capsule 300 mg PO .COMPLEX #90 cap 11/02/19 hydroxyzine HCl 25 mg PO TID PRN #20 tab 12/21/19 oxycodone-acetaminophen [Percocet] 1 - 2 tab PO Q6H PRN #14 tab 12/21/19 Allergies Allergy/AdvReac Type Severity Reaction Status Date / Time bacitracin [BACITRACIN] Allergy Mild Rash Verified 08/26/19 13:54 neomycin [NEOMYCIN] Allergy Mild Rash Verified 08/26/19 13:54 polymyxin B [POLYMYXIN B] Allergy Mild Rash Verified 08/26/19 13:54 Review of Systems Review of Systems Narrative: Pertinent positive and negative findings as per HPI Remainder of review of systems is otherwise unremarkable for Constitutional: Fevers, chills, weakness ENT: No sore throat, neck pain, ear pain CV: Chest pain, palpitations, dyspnea on exertion Respiratory: Cough, wheeze, dyspnea GI: Nausea, vomiting, diarrhea, change in bowel habits, black or bloody stools : Dysuria, hematuria, flank pain Skin: Rashes, nonhealing lesions Neuro: Syncope, dizziness, tingling Patient History Medical History (Updated 12/21/19 @ 11:27 by Ira Peter MD) Bipolar I, recurrent manic episode, partial remission (Acute) Cervical radiculopathy (Suspected) Chronic knee pain after total replacement of both knee joints (Acute) Lumbar spinal stenosis (Chronic) Surgical History (Updated 12/21/19 @ 10:20 by Ira Peter MD) H/O lumbosacral spine surgery (Inactive) Family History Mother Dementia Father Lung cancer Cirrhosis of liver Social History household members: friend(s) Smoking Status: Former smoker Smoking Status: Former smoker alcohol intake frequency: 0-2 drinks per day Substance Use Type: does not use Exam Narrative Exam Narrative: General: Healthy appearing, lying flat on the stretcher comfortable when he is not moving. Able to give a complete and coherent history. Well-nourished well-developed HEENT: Moist mucous membranes, normal sclera with reactive pupils, Neck: supple Respiratory: Lungs are clear to auscultation, no wheezing no rales no rhonchi. Full and symmetrical air movement Cardiac: Regular rate and rhythm no murmurs no bruits Abdomen: Soft nontender good bowel tones, no flank pain Skin: Warm and dry, no rashes Spine: Surgical site is well healed, there is no redness fluctuance or point tenderness along the thoracic or lumbar spine. There is minor amount of paraspinous spasm proximal to the surgical incision Neurologic: Grossly neurologically intact with no obvious asymmetries or abnormalities. Full sensation to both legs and no obvious weakness, significant pain with any type of movement and specifically worse with trying to roll over to reposition. Extremities: No trauma, well perfused Psych: Cooperative, appropriate insight and affect Initial Vital Signs Initial Vital Signs: Vital Signs Temperature 97.8 F 12/21/19 07:07 Pulse Rate 76 12/21/19 07:07 Respiratory Rate 16 12/21/19 07:07 Blood Pressure 187/100 H 12/21/19 07:07 Pulse Oximetry 97 12/21/19 07:07 Course Orders Ordered: ED Orders 12/21/19 07:36 Basic Metabolic Panel Stat Complete Blood Count AUTO DIFF Stat Sodium Chloride (Normal Saline 0.9%) 1,000 mls @ 125 mls/hr IV CONT CARMEN Last Admin: 12/21/19 08:36 Dose: 125 mls/hr Documented by: BTONER Discontinued Medications Hydroxyzine Pamoate (Vistaril) 50 mg PO NOW ONE Stop: 12/21/19 10:17 Last Admin: 12/21/19 10:23 Dose: 50 mg Documented by: MIRI Oxycodone/Acetaminophen (Percocet 5/325) 2 tab PO NOW ONE Stop: 12/21/19 10:17 Last Admin: 12/21/19 10:23 Dose: 2 tab Documented by: MIRI Vital Signs Vital signs: Vital Signs - 8 hr 12/21/19 07:07 12/21/19 09:00 12/21/19 10:00 Temperature 97.8 F Pulse Rate 76 69 72 Respiratory Rate 16 17 18 Blood Pressure 187/100 H 148/70 H 160/82 H Pulse Oximetry 97 94 96 MDM - Back Pain/Injury Medical Records Attestation: I reviewed the patient's medical records. Lab Data Result diagrams: 12/21/19 07:36 12/21/19 07:36 Labs: Lab Results 12/21/19 12/21/19 Range/Units 07:36 07:36 WBC 8.9 (4.5-11.0) X10^3/uL RBC 4.97 (4.5-5.9) X10^6/uL Hgb 15.4 (13.5-17.5) g/dL Hct 44.9 (41-53) % MCV 90.3 (80-100) fL MCH 30.9 (26-34) PG MCHC 34.3 (30-36) % RDW 13.3 (11.6-14.8) % Plt Count 262 (150-400) X10^3/uL Neut % (Auto) 75.7 H (50-75) % Lymph % (Auto) 13.7 L (25-40) % [place] % (Auto) 6.8 (3-14) % Eos % (Auto) 3.3 (2-4) % Baso % (Auto) 0.5 (0-2) % Neut # (Auto) 6700 (0534-5593) /uL Lymph # (Auto) 1200 (3791-6661) /uL [place] # (Auto) 600 (0-900) /uL Eos # (Auto) 300 (0-450) /uL Baso # (Auto) 0 (0-100) /uL Sodium 138 (137-145) mmol/L Potassium 4.5 (3.4-5.1) mmol/L Chloride 104 (98-107) mmol/L Carbon Dioxide 27 (22-32) mmol/L BUN 23 H (9-20) mg/dL Creatinine 0.78 (0.66-1.25) mg/dL Estimated GFR > 60.0 (>60) mL/min BUN/Creatinine Ratio 29.5 H (6-22) Glucose 105 (80-110) mg/dL Calcium 9.6 (8.4-10.2) mg/dL Urine Dip Bedside Urine Glucose Negative Bedside Urine Bilirubin - Negative Bedside Urine Ketone - Negative Urine Specific [place] 1.015 Bedside Urine Occult Blood - Negative Bedside Urine pH 6.0 Bedside Urine Protein - Negative Bedside Urine Urobilinogen - Negative Bedside Urine Nitrite - Negative Bedside Urine Leukocytes - Negative Esterase MDM Narrative Medical decision making narrative: 69-year-old gentleman who is concerned that he has a another disc displaced after spinal surgery November 26. Awoke with severe muscle spasm this morning enough that he was unable to get out of bed and called 911 for assistance. Labs reassuring. No clinical suggestion of epidural abscess or surgical site infection. He has bilateral paraspinous spasm just distal to the incision site without any increased erythema. Labs are reassuring. Have spoken with Dr. Taylor, neurosurgeon. He agrees that no additional imaging is appropriate at this time. After 2 Percocet and 50 mg of hydroxyzine patient is doing significantly better able to move about in bed and pain and spasm are better controlled. Will be discharged home. Discharge Plan Departure Patient Disposition: Home Clinical Impression: Strain of lumbar region Qualifiers: Encounter type: subsequent encounter Qualified Code(s): S39.012D - Strain of muscle, fascia and tendon of lower back, subsequent encounter Instructions: DI for Back Spasm Activity Restrictions/Additional Instructions: Thank you for coming in today I am sorry that you are having such a difficult time with your postoperative course. On your exam today I did not find any suggestion of infection or abscess developing around her surgical site. You have significant spasm on both sides of your spine below the surgical site which goes along with acute strain. I am not seeing any evidence to suggest additional disc problems or nerve issues related to that. In the emergency room you received 2 Percocet and 50 mg of hydroxyzine to help with the pain and the spasm. This seemed to be somewhat effective for you. I am going to suggest that he try this combination for the next 1-2 days and then again wean off of the narcotic as you have previously. You also have a prescription for cyclobenzaprine. Please choose either hydroxyzine or cyclobenzaprine to help with the muscle spasm, please do not combine these. Similarly, you have oxycodone at home and Percocet has Tylenol plus oxycodone. Please choose 1 or the other. Pres[facility] [place] for you Once you are feeling a bit better gentle mobilization and gentle walking on a flat surface is absolutely appropriate. Please keep all of your scheduled postoperative appointments. If you notice fevers, increasing weakness or numbness or new or changing symptoms it would be appropriate to return to the emergency room for further evaluation. I hope you feel better Prescriptions: New oxycodone-acetaminophen [Percocet] 5-325 mg tablet 1 - 2 tab PO Q6H PRN (Reason: pain) Qty: 14 RF: 0 hydroxyzine HCl 25 mg tablet 25 mg PO TID PRN (Reason: muscle spasm) Qty: 20 RF: 0 No Action magnesium citrate 4 gram packet 100 mg PO BEDTIME RF: 0 celecoxib [Celebrex] 200 mg capsule 200 mg PO DAILY PRN (Reason: pain) Qty: 30 RF: 2 gabapentin 300 mg capsule 300 mg PO .COMPLEX Qty: 90 RF: 2 prednisone 10 mg tablet 10 mg PO DAILY Qty: 30 RF: 0 Referrals: Francisco Dyer DO [Primary Care Provider] -
--- NOTE | 2019-12-21 07:39 | PC.NURSE ---
Patient had back surgery was healing well until when he tweaked his back on a walk. Since then increase difficulty turning over. This morning unable to get out of bed. Arrives covered in stool states he was unable to get up out of bed. Patient has increase pain with any movement of lower legs.
[2019-12-21 07:44] LABS: Add Manual Diff / Slide Review NO; Basophils Absolute Auto 0 /uL (0-100); Basophils Percent Auto 0.5 % (0-2); Eosinophils Absolute Auto 300 /uL (0-450); Eosinophils Percent Auto 3.3 % (2-4); Hematocrit 44.9 % (41-53); Hemoglobin 15.4 g/dL (13.5-17.5); Lymphocytes Absolute Auto 1200 /uL (1100-4500); Lymphocytes Percent Auto 13.7 % (25-40); Mean Corpuscular HGB Conc 34.3 % (30-36); Mean Corpuscular Hemoglobin 30.9 PG (26-34); Mean Corpuscular Volume 90.3 fL (80-100); Monocytes Absolute Auto 600 /uL (0-900); Monocytes Percent Auto 6.8 % (3-14); Neutrophils Absolute Auto 6700 /uL (1500-7000); Neutrophils Percent Auto 75.7 % (50-75); Platelet Count 262 X10^3/uL (150-400); Red Blood Cell Count 4.97 X10^6/uL (4.5-5.9); Red Cell Distribution Width 13.3 % (11.6-14.8); White Blood Cell Count 8.9 X10^3/uL (4.5-11.0)
[2019-12-21 07:54] LABS: BUN Creatinine Ratio 29.5 (6-22); Blood Urea Nitrogen 23 mg/dL (9-20); Calcium 9.6 mg/dL (8.4-10.2); Carbon Dioxide 27 mmol/L (22-32); Chloride 104 mmol/L (98-107); Estimated Glomerular Filt Rate > 60.0 mL/min (>60); Glucose 105 mg/dL (80-110); HEMOLYSIS < 15 (0-50); Potassium 4.5 mmol/L (3.4-5.1); Sodium 138 mmol/L (137-145)
[2019-12-21] MEDS: SODIUM CHLORIDE 0.9% 1,000 ML 125 ML IV (08:36)
[2019-12-21] MEDS: hydrOXYzine pamoate 25 MG CAPSULE 50 MG PO (10:23)
[2019-12-21] MEDS: OXYCODONE/ACETAMINOPHEN 5/325 TABLET 2 TAB PO (10:23)
[2019-12-21] MEDS: OXYCODONE IR 5 MG TABLET PO (12:05)
[2019-12-21] MEDS: KETOROLAC 60 MG/2 ML VIAL 15 MG IV (12:05)
== END 2019-12-21 12:33 | disposition home or self-care (01) ==
PROVIDERS: Emergency Medicine; Emergency Provider Emergency Medicine; PCP Family Medicine
DX: S39.012A Strain of muscle, fascia and tendon of lower back, initial encounter (principal)
CPT/HCPCS: 36415; 80048; 81003; 85025; 96361; 96374; 99284; J1885

== ENCOUNTER 2020-01-15 15:52 | Emergency (ER) | payer MEDICARE, BC, SELFPAY ==
[2020-01-15 15:56] VITALS: BP 157/78; PULSE 92; RESP 18; TEMP 37; O2SAT 98; BMI 34.1
[2020-01-15] MEDS: ACETAMINOPHEN 325 MG TABLET 650 MG PO (18:32)
[2020-01-15] MEDS: IBUPROFEN 400 MG TABLET PO (18:32)
[2020-01-15] MEDS: CYCLOBENZAPRINE 10 MG TABLET PO (18:33)
[2020-01-15] MEDS: LIDOCAINE PATCH 1 EACH ADH..PATCH TOP (18:33)
--- NOTE | 2020-01-15 18:46 | ED_ITS ---
HPI - Back Pain/Injury <KEVIN Roa - Last Filed: 01/15/20 22:04> General Chief Complaint: Back Pain/Injury Stated Complaint: Extreme Lower Back Pain Time Seen by Provider: 01/15/20 18:04 Source: patient Mode of arrival: Ambulatory Limitations: no limitations History of Present Illness HPI Narrative: This is a 69-year-old male, former smoker, who had a lumbar spine surgery on 11/27/[address] Taylor at [place] for severe stenosis presents to ED with chief complain of paraspinous lumbar back pain wrapping around bilateral waist and radiating down to right anterior thigh with slight numbness. Patient reports immediately after surgery his pain was so much better but has noticed occasional severe pain recurring during end of last year and this morning. Patient states for the 1st time he was pain-free last night but he woke up with again severe back pain and states I do not know what I did to my back. Patient reports it is a piercing pain and feels like bone is sticking out. Patient usually uses as needed Tylenol and Motrin but last 1 week he had used 5 mg of oxycodone about once a day during afternoon. Today he had used oxycodone 4 times so far and used gabapentin 2 tabs of 300 mg up to 3 times a day. Patient denies fever, chills, nausea, vomiting or urinary symptoms. Patient denies drainage, warmth on his back. Patient also reports has history of kidney stone 3 years ago with severe pain which is different from today. Patient increases when his hip and shoulder is out of alignment and when he is bending forward and when he gets out of bed. Patient states that he had started physical therapy about 2 weeks ago. Related Data Home Medications Medication Instructions Recorded Confirmed magnesium citrate 4 gram oral 100 mg PO BEDTIME 06/30/19 08/14/19 packet Previous Rx's Medication Instructions Recorded prednisone 10 mg PO DAILY #30 tab 08/22/19 celecoxib 200 mg capsule 200 mg PO DAILY PRN #30 cap 09/07/19 gabapentin 300 mg capsule 300 mg PO .COMPLEX #90 cap 11/02/19 hydroxyzine HCl 25 mg PO TID PRN #20 tab 12/21/19 oxycodone-acetaminophen [Percocet] 1 - 2 tab PO Q6H PRN #14 tab 12/21/19 cyclobenzaprine 10 mg PO BID PRN #7 tab 01/15/20 lidocaine 1 patch TOP DAILY PRN #30 each 01/15/20 Allergies Allergy/AdvReac Type Severity Reaction Status Date / Time bacitracin [BACITRACIN] Allergy Mild Rash Verified 01/15/20 15:56 neomycin [NEOMYCIN] Allergy Mild Rash Verified 01/15/20 15:56 polymyxin B [POLYMYXIN B] Allergy Mild Rash Verified 01/15/20 15:56 Review of Systems <KEVIN Roa - Last Filed: 01/15/20 22:04> Review of Systems Narrative: General: Denies fever, chills, fatigue, malaise, sweats. HEENT: Denies sinus pain, ear pain, sore throat, difficulty swallowing, dizziness. Respiratory: Denies dyspnea, cough, wheezing, hemoptysis, sputum. Cardiovascular: Denies chest pain, palpitations, orthopnea, edema. Gastrointestinal: Denies nausea, vomiting, abdominal pain, diarrhea, constipation, melena. : See HPI Musculoskeletal: See HPI Skin: Denies rash, skin lesions, or other. Neurologic: Denies weakness, headache, numbness, change in speech, confusion, seizures, incoordination. Psychiatric: No concerning psychosocial issues. 12-point review of systems is negative except for those stated above. Patient History <KEVIN Roa - Last Filed: 01/15/20 22:04> Medical History Bipolar I, recurrent manic episode, partial remission (Acute) Cervical radiculopathy (Suspected) Chronic knee pain after total replacement of both knee joints (Acute) Lumbar spinal stenosis (Chronic) Surgical History H/O lumbosacral spine surgery (Inactive) Family History Mother Dementia Father Lung cancer Cirrhosis of liver Social History household members: friend(s) Smoking Status: Former smoker Smoking Status: Former smoker alcohol intake frequency: 0-2 drinks per day Substance Use Type: does not use Exam <KEVIN Roa - Last Filed: 01/15/20 22:04> Narrative Exam Narrative: General appearance: well developed, well nourished, in no acute distress. Head: normocephalic, atraumatic, no scalp lesions, non-tender. ENT: Hearing grossly intact. Airway patent. Neck/Thyroid: neck supple, full range of motion, no visible masses or meningeal signs. No JVD, non-tender without lymphadenopathy. Skin: no suspicious rashes, lesions over visible areas. Warm and dry and appropriate color for ethnicity. Well-healed vertical surgical incision in lumbar region without redness, swelling, warmth, or drainage Heart: no clubbing, no cyanosis, no edema. S1 and S2 normal. RRR w/o murmurs, clicks, or bruits. Lungs: Breathing even and unlabored. No stridor. No accessory muscles used. Able to speak in full sentences. Chest: normal shape and expansion. Abdomen: non-obese, non-distended. Neurologic: alert and oriented. Cognitive exam, [employer] and PNS grossly intact on informal exam. Psych: good eye contact, normal affect. Initial Vital Signs Initial Vital Signs: Vital Signs Temperature 98.6 F 01/15/20 15:56 Pulse Rate 92 H 01/15/20 15:56 Respiratory Rate 18 01/15/20 15:56 Blood Pressure 157/78 H 01/15/20 15:56 Pulse Oximetry 98 01/15/20 15:56 Back/Spine/Pelvis Thoracic/Lumbar Spine: surgical scar(s) present (Lumbar), bend over test abnormal, pain with thoraco-lumbar ROM, paraspinal tenderness (Lumbar in surgical site), No thoracic spinal tenderness, No lumbar spinal tenderness and straight leg raise positive <Ashutosh Cottrell MD - Last Filed: 01/16/20 08:35> Initial Vital Signs Initial Vital Signs: Vital Signs Temperature 98.6 F 01/15/20 15:56 Pulse Rate 92 H 01/15/20 15:56 Respiratory Rate 18 01/15/20 15:56 Blood Pressure 157/78 H 01/15/20 15:56 Pulse Oximetry 98 01/15/20 15:56 Scores <Tone KEVIN Culp - Last Filed: 01/15/20 22:04> GCS Wilbert coma scale eye opening: Spontaneous Wilbert coma scale verbal response: Orientated Wilbert coma scale motor response: Obey commands Yancey coma scale total score: 15 qSOFA Altered Mental Status (GCS <15): No Respiratory rate greater than/equal to 22: No Systolic blood pressure less than or equal to 100: No qSOFA Total: 0 0-1 Not High Risk 1-3 High risk Course <Tone KEVIN Culp - Last Filed: 01/15/20 22:04> Orders Ordered: Discontinued Medications Acetaminophen (Tylenol) 650 mg PO NOW ONE Stop: 01/15/20 18:28 Last Admin: 01/15/20 18:32 Dose: 650 mg Documented by: CYNDI Cyclobenzaprine HCl (Flexeril) 10 mg PO NOW ONE Stop: 01/15/20 18:28 Last Admin: 01/15/20 18:33 Dose: 10 mg Documented by: CYNDI Cyclobenzaprine HCl (Flexeril 10 Mg Prepack) 1 bottle [facility] ONE Stop: 01/15/20 19:46 Last Admin: 01/15/20 20:13 Dose: 1 bottle Documented by: PWGEORGIAE Ibuprofen (Advil) 400 mg PO NOW ONE Stop: 01/15/20 18:28 Last Admin: 01/15/20 18:32 Dose: 400 mg Documented by: CYNDI Lidocaine (Lidoderm) 1 each TOP NOW ONE Stop: 01/15/20 18:28 Last Admin: 01/15/20 18:33 Dose: 1 each Documented by: CYNDI Vital Signs Vital signs: Vital Signs - 8 hr 01/15/20 15:56 01/15/20 19:08 01/15/20 19:35 Temperature 98.6 F Pulse Rate 92 H 85 81 Respiratory Rate 18 14 16 Blood Pressure 157/78 H 173/84 H 173/84 H Pulse Oximetry 98 95 97 <Ashutosh Cottrell MD - Last Filed: 01/16/20 08:35> Orders Ordered: Discontinued Medications Acetaminophen (Tylenol) 650 mg PO NOW ONE Stop: 01/15/20 18:28 Last Admin: 01/15/20 18:32 Dose: 650 mg Documented by: CYNDI Cyclobenzaprine HCl (Flexeril) 10 mg PO NOW ONE Stop: 01/15/20 18:28 Last Admin: 01/15/20 18:33 Dose: 10 mg Documented by: CYNDI Cyclobenzaprine HCl (Flexeril 10 Mg Prepack) 1 bottle [facility] ONE Stop: 01/15/20 19:46 Last Admin: 01/15/20 20:13 Dose: 1 bottle Documented by: PWEAVE Ibuprofen (Advil) 400 mg PO NOW ONE Stop: 01/15/20 18:28 Last Admin: 01/15/20 18:32 Dose: 400 mg Documented by: CYNDI Lidocaine (Lidoderm) 1 each TOP NOW ONE Stop: 01/15/20 18:28 Last Admin: 01/15/20 18:33 Dose: 1 each Documented by: CYNDI Vital Signs Vital signs: Vital Signs - 8 hr 01/15/20 15:56 01/15/20 19:08 01/15/20 19:35 Temperature 98.6 F Pulse Rate 92 H 85 81 Respiratory Rate 18 14 16 Blood Pressure 157/78 H 173/84 H 173/84 H Pulse Oximetry 98 95 97 MDM - Back Pain/Injury <KEVIN Roa - Last Filed: 01/15/20 22:04> Differential Diagnosis Differential diagnosis: Likely lumbar radiculopathy and discitis Medical Records Attestation: I reviewed the patient's medical records. Lab Data Attestation: I reviewed the patient's lab results. Labs: Urine Dip Bedside Urine Glucose Negative Bedside Urine Bilirubin - Negative Bedside Urine Ketone - Negative Urine Specific [place] 1.015 Bedside Urine Occult Blood - Negative Bedside Urine pH 6.5 Bedside Urine Protein - Negative Bedside Urine Urobilinogen - Negative Bedside Urine Nitrite - Negative Bedside Urine Leukocytes - Negative Esterase MDM Narrative Medical decision making narrative: This is a 69-year-old male with s/p lumbar spine surgery about seven weeks ago with chief complain of bilateral paraspinal tenderness in lumbar region with radiating pain in right anterior thigh with slight numbness. Patient also has history of kidney stone about 3 years ago but pain characteristic and severity is different at this time. Patient is afebrile, nontoxic appearing with within normal heart rate, respiration and slight hypertensive in ED. Urine test was negative for blood, urine leuko site esterase, nitrite indicating infection or stones. Patient reports he was doing very well immediately after surgery but occasional recurring severe pain and he was also evaluated on 12/21/19 in ED for pain. At that time lab tests were assuring and does not indicate infection. Patient reports he was doing very well last night and for the 1st time he was pain free. Physical exam is unremarkable. No redness, warmth, swelling, drainage in surgical site. No spinous tenderness to palpate indicating discitis. Bilateral strength in lower extremities equal bilaterally. Right lower extremity muscle appears to be slightly bigger than left lower extremity. Intact sensation in bilateral extremities. Since patient's pain has been sporadically worsening and no obvious signs of infection. No further imaging test was done today. Patient was medicated with Tylenol, Motrin, lidocaine patch, and Flexeril. Patient takes his own oxycodone and gabapentin at home. Patient reports feeling much better after these treatments and was able to ambulate. Patient was able to void ED without difficulty. Patient has follow-up appointment with Dr. Taylor this coming . Return precautions were discussed with the patient and patient discharged to home with lidocaine patch and Flexeril for as needed treatment. Return precautions were discussed with patient and patient verbalized understanding and in agreement with treatment plan. <Ashutosh Cottrell MD - Last Filed: 01/16/20 08:35> Lab Data Labs: Urine Dip Bedside Urine Glucose Negative Bedside Urine Bilirubin - Negative Bedside Urine Ketone - Negative Urine Specific [place] 1.015 Bedside Urine Occult Blood - Negative Bedside Urine pH 6.5 Bedside Urine Protein - Negative Bedside Urine Urobilinogen - Negative Bedside Urine Nitrite - Negative Bedside Urine Leukocytes - Negative Esterase Discharge Plan Departure Patient Disposition: Home Clinical Impression: Lumbar radiculopathy, right Discharge Date/Time: 01/15/20 20:05 Instructions: DI for Low Back Pain Activity Restrictions/Additional Instructions: You have been diagnosed with [low back pain and radiculopathy. Status post lumbar spine surgery.]. What to do: *Take your medications as directed. You were medicated with lidocaine patch, Tylenol, ibuprofen, and Flexeril while in ED which improved her pain. Flexor and lidocaine patch has been transmitted to [facility] in [facility]. Lidocaine patch stays on for 12 hours and off for 12 hours. Flexeril causes drowsiness so please take precaution such as not driving, drinking alcohol or operating heavy equipments. Please use baseline pain management with [id number] Tylenol 650-1000 mg up to 3 to 4 times a day as needed for pain. Ibuprofen 400-600 mg up to 3 times a day as needed for pain with food to decrease GI irritation. Please continue to take gabapentin for nerve pain. If you take Flexeril and hydroxyzine together in may cause increase in sedation so please take precautions and try to avoid taking it together. *Follow up with your primary care provider in 2-3 days, call for an appointment. Please follow-up with Dr. Taylor on as scheduled. Let them know you were seen in the ED and that we asked you to be seen in follow up. *Return to ED if you have any new, worsening, or concerning symptoms, such as [chest pain, breathing difficulty, unable to tolerate fluids, incontinence, numbness to groin, weakness to you are lower legs, fever, rash, or any acute c oncerns.]. Prescriptions: New lidocaine 5 % adhesive patch,medicated 1 patch TOP DAILY PRN (Reason: back pain) Qty: 30 RF: 0 cyclobenzaprine 10 mg tablet 10 mg PO BID PRN (Reason: muscle spasm) Qty: 7 RF: 0 No Action magnesium citrate 4 gram packet 100 mg PO BEDTIME RF: 0 celecoxib [Celebrex] 200 mg capsule 200 mg PO DAILY PRN (Reason: pain) Qty: 30 RF: 2 gabapentin 300 mg capsule 300 mg PO .COMPLEX Qty: 90 RF: 2 prednisone 10 mg tablet 10 mg PO DAILY Qty: 30 RF: 0 oxycodone-acetaminophen [Percocet] 5-325 mg tablet 1 - 2 tab PO Q6H PRN (Reason: pain) Qty: 14 RF: 0 hydroxyzine HCl 25 mg tablet 25 mg PO TID PRN (Reason: muscle spasm) Qty: 20 RF: 0 Referrals: Fernando Taylor MD [Non-Staff] - Francisco Dyer DO [Primary Care Provider] -
[2020-01-15 19:08] VITALS: BP 173/84; PULSE 85; RESP 14; O2SAT 95
[2020-01-15 19:35] VITALS: BP 173/84; PULSE 81; RESP 16; O2SAT 97
[2020-01-15] MEDS: CYCLOBENZAPRINE 10 MG PREPACK 1 BOTTLE MISC (20:13)
== END 2020-01-15 20:05 | disposition home or self-care (01) ==
PROVIDERS: Emergency Provider Nurse Practitioner Family; PCP Family Medicine
DX: M54.16 Radiculopathy, lumbar region (principal)
CPT/HCPCS: 81003; 99283

== ENCOUNTER → 2020-02-04 07:07 | Outpatient (CLI) | payer MEDICARE, BC, SELFPAY ==
--- NOTE | 2020-02-04 | DI.MRI.S_ITS ---
PROCEDURE: MR LUMBAR SPINE WO/W CON INDICATIONS: Spinal stenosis, lumbar region with neurogenic cla TECHNIQUE: Noncontrast sagittal T1 spin echo and T2 fast spin echo, sagittal STIR, axial T1 and T2 fast spin echo through the lumbar spine. In cases with scoliosis, additional coronal T2 fast spin echo may be performed. After the administration of contrast, sagittal and axial T1 spin echo with fat saturation through the lumbar spine. COMPARISON: [facility], CR, L-SPINE 2-3 VIEWS, 02/18/2015, 10:34. [facility], MR, MR LUMBAR SPINE WO CON, 05/02/2018, 13:53. [facility], MR, MR LUMBAR SPINE WO CON, 08/04/2019, 7:22. [facility], NM, NM BONE 3 PHASE, 08/04/2019, 7:47. FINDINGS: Image quality: Excellent. Alignment and curvature: There is normal bony alignment. Marrow: Marrow is of normal overall signal. No acute vertebral body compression fractures. No suspicious marrow enhancement. Spinal cord: Conus medullaris terminates at the L1 level. Visualized spinal cord demonstrates normal signal, without suspicious enhancement. Paraspinous soft tissues: No paravertebral masses are seen. There is an expected amount of edema and enhancement seen within the postoperative soft tissues posteriorly. T12-L1: Normal appearance. L1-L2: The disc height and disk signal are well-preserved. Mild generalized disc bulge is seen. Mild to moderate bilateral neural foraminal narrowing is seen. Mild to moderate central canal narrowing is seen. When comparison is made with the prior examination, these findings are similar. L2-L3: Mild loss of disc height is seen. Loss of disc signal is seen. At least moderate disc bulge is seen. Moderate facet joint hypertrophy is seen. Moderate bilateral neural foraminal narrowing is seen. At least moderate central canal narrowing is seen. When comparison is made with the prior examination, these findings are similar. L3-L4: Mild loss of disc height is seen. Increased STIR signal can be seen along this disc. At least moderate disc bulge is seen, which is eccentric to the right side. Moderate facet joint hypertrophy is seen. Right hemilaminectomy change is seen. There is moderate to severe bilateral neural foraminal narrowing seen. Moderate central canal narrowing is seen. The abnormal STIR signal at this disc level has developed since the prior study. The degree of central canal narrowing is improved compared to the prior examination. L4-L5: Moderate loss of disc height is seen. There is decreased T1 weighted signal and increased T2 weighted/STIR signal seen along this disc level. There is enhancing material seen along the posterior aspect of the disc level, which is best seen on series 4, image 10 measuring 1.8 cm craniocaudal, 1.2 cm AP, with a transverse extent of approximately 1.6 cm. Right hemilaminectomy change can be seen at this level. There is decreased T1 weighted signal and increased T2 weighted/STIR signal seen along the endplates. Endplate enhancement can be seen. There is enhancement seen of the disc level posteriorly. There is at least moderate left-sided and moderate to severe right-sided neural foraminal narrowing seen. There is a degree of compression seen upon the exiting right L4 nerve root. There is moderate to severe central canal narrowing present. The abnormal signal along the disc as well as the enhancing material along the posterior aspect of the disc is new compared to the prior examination. L5-S1: Moderate loss of disc height is seen. Loss of disc signal is seen. Moderate prominent disc bulge is seen. There is moderate bilateral facet hypertrophy, right worse than left. There is moderate to severe bilateral neural foraminal narrowing seen, right worse than left. There is a degree of compression seen upon the exiting nerve roots. Moderate central canal narrowing is seen. When comparison is made with the prior examination, these findings are similar. IMPRESSION: Postoperative changes are seen. There is abnormal signal and enhancement seen along the L4-5 disc level, with high suspicion for discitis and osteomyelitis. There is abnormal enhancing material seen along the posterior aspect the disc, which may represent infected disc material or less likely epidural abscess. There is potential early discitis seen of the L3-4 level, with increased STIR signal. Note: Dr. Taylor was not available to discuss this case at the time of this dictation. Findings discussed by telephone with his director biomedical engineering, Kobe, at 10:20 a.m. [place] time on February 04, 2020, who will discuss them with Dr. Taylor. Dr. Taylor will call back if there are any questions. Dictated by: Tico Tolbert M.D. on 02/04/2020 at 10:09 Approved by: Tico Tolbert M.D. on 02/04/2020 at 10:23
== END ==
PROVIDERS: PCP Family Medicine; Referring Provider Neurological Surgery; Visit Provider Neurological Surgery
DX: M48.062 Spinal stenosis, lumbar region with neurogenic claudication (principal); M48.07 Spinal stenosis, lumbosacral region; M51.26 Other intervertebral disc displacement, lumbar region; M51.27 Other intervertebral disc displacement, lumbosacral region
CPT/HCPCS: 72158; A9579

== ENCOUNTER → 2020-02-04 07:10 | Outpatient (CLI) | payer MEDICARE, BC, SELFPAY ==
[2020-02-04 08:21] LABS: Add Manual Diff / Slide Review NO; Basophils Absolute Auto 100 /uL (0-100); Basophils Percent Auto 0.8 % (0-2); Eosinophils Absolute Auto 100 /uL (0-450); Eosinophils Percent Auto 1.9 % (2-4); Hematocrit 46.3 % (41-53); Hemoglobin 15.7 g/dL (13.5-17.5); Lymphocytes Absolute Auto 1400 /uL (1100-4500); Lymphocytes Percent Auto 21.2 % (25-40); Mean Corpuscular HGB Conc 33.8 % (30-36); Mean Corpuscular Hemoglobin 30.5 PG (26-34); Monocytes Absolute Auto 600 /uL (0-900); Monocytes Percent Auto 9.5 % (3-14); Neutrophils Absolute Auto 4400 /uL (1500-7000); Neutrophils Percent Auto 66.6 % (50-75); Platelet Count 294 X10^3/uL (150-400); Red Blood Cell Count 5.14 X10^6/uL (4.5-5.9); Red Cell Distribution Width 13.4 % (11.6-14.8); White Blood Cell Count 6.6 X10^3/uL (4.5-11.0)
[2020-02-04 08:29] LABS: Hemoglobin A1C% w Est Avg Glu 5.8 % (4.0-6.0)
[2020-02-04 08:46] LABS: Alanine Aminotransferase 23 IU/L (<50); Albumin 4.3 g/dL (3.5-5.0); Albumin Globulin Ratio 1.4 (1.0-2.8); Alkaline Phosphatase 100 U/L (38-126); Aspartate Aminotransferase 23 IU/L (17-59); BUN Creatinine Ratio 29.5 (6-22); Bilirubin Total 0.6 mg/dL (0.2-1.3); Blood Urea Nitrogen 23 mg/dL (9-20); Calcium 9.5 mg/dL (8.4-10.2); Carbon Dioxide 28 mmol/L (22-32); Chloride 104 mmol/L (98-107); Cholesterol 205 mg/dL (140-199); Estimated Glomerular Filt Rate > 60.0 mL/min (>60); Globulin 3.1 g/dL (1.7-4.1); Glucose 97 mg/dL (80-110); HDL Cholesterol 40 mg/dL (40-60); HEMOLYSIS < 15 (0-50); LDL Cholesterol Calculated 134 mg/dL (<100); Potassium 5.1 mmol/L (3.4-5.1); Sodium 139 mmol/L (137-145); Total Protein 7.4 g/dL (6.3-8.2); Triglycerides 155 mg/dL (35-150)
[2020-02-04 09:10] LABS: Thyroid Stimulating Hormone 4.42 uIU/mL (0.47-4.68)
[2020-02-04 12:06] LABS: C-Reactive Protein Quant 2.7 mg/dL (<1.0)
[2020-02-04 12:37] LABS: Erythrocyte Sedimentation Rate 6 MM/HR (0-15)
[2020-02-05 07:36] LABS: PSA Free % 14.4 % (.); PSA, Total 1.6 ng/mL (0.0-4.0)
== END ==
PROVIDERS: PCP Family Medicine; Referring Provider Naturopath; Visit Provider Naturopath
DX: Z00.00 Encounter for general adult medical examination without abnormal findings (principal); R73.09 Other abnormal glucose
CPT/HCPCS: 36415; 80053; 80061; 83036; 84153; 84154; 84443; 85025; 85651; 86140

== ENCOUNTER → 2020-02-24 14:21 | Outpatient (CLI) | payer MEDICARE, BC, SELFPAY ==
[2020-02-24 14:57] LABS: Add Manual Diff / Slide Review NO; Basophils Absolute Auto 100 /uL (0-100); Eosinophils Absolute Auto 200 /uL (0-450); Hematocrit 42.7 % (41-53); Hemoglobin 14.6 g/dL (13.5-17.5); Lymphocytes Absolute Auto 1900 /uL (1100-4500); Lymphocytes Percent Auto 19.5 % (25-40); Mean Corpuscular HGB Conc 34.3 % (30-36); Mean Corpuscular Hemoglobin 30.6 PG (26-34); Mean Corpuscular Volume 89.2 fL (80-100); Monocytes Absolute Auto 800 /uL (0-900); Monocytes Percent Auto 7.8 % (3-14); Neutrophils Absolute Auto 6800 /uL (1500-7000); Neutrophils Percent Auto 69.7 % (50-75); Platelet Count 318 X10^3/uL (150-400); Red Blood Cell Count 4.79 X10^6/uL (4.5-5.9); White Blood Cell Count 9.8 X10^3/uL (4.5-11.0)
[2020-02-24 15:09] LABS: Erythrocyte Sedimentation Rate 12 MM/HR (0-15)
[2020-02-24 15:16] LABS: C-Reactive Protein Quant 2.6 mg/dL (<1.0)
== END ==
PROVIDERS: PCP Family Medicine; Referring Provider Neurological Surgery; Visit Provider Neurological Surgery
DX: M54.40 Lumbago with sciatica, unspecified side (principal)
CPT/HCPCS: 36415; 85025; 85651; 86140

== ENCOUNTER → 2021-05-09 10:50 | Outpatient (CLI) | payer MEDICARE, BC, SELFPAY ==
--- NOTE | 2021-05-09 10:52 | DI.RAD.S_ITS ---
PROCEDURE: XR WRIST RT MIN 3V INDICATIONS: right wrist pain TECHNIQUE: 4 views of the wrist were acquired. COMPARISON: [facility], CR, XR WRIST 3+ VIEWS LEFT, 06/05/2019, 10:22. FINDINGS: Bones: No acute fractures or dislocations. Severe polyarticular degenerative changes of the right wrist. Severe degenerative changes of the 1st carpometacarpal joint. Moderate-severe degenerative changes of the triscaphe joint. Moderate-severe degenerative changes of the lunocapitate joint. Degenerative subchondral cystic changes throughout the wrist. Degenerative changes of the 1st metacarpophalangeal joint. No suspicious bony lesions. Chronic appearing ossification involving the distal ulnar styloid tip. Scaphoid view: Scaphoid appears intact. Advanced degenerative changes of the triscaphe joint with subchondral lucencies likely representing subchondral degenerative cysts. Scapholunate interval is within normal limits. Advanced degenerative changes of the lunocapitate joint. Soft tissues: No suspicious soft tissue calcifications. Mild soft tissue swelling of the right wrist. IMPRESSION: Right wrist without acute fracture or dislocation. Advanced degenerative changes of the right wrist as detailed above. Scattered subchondral lucencies favored to represent degenerative subchondral cysts; however, osseous erosions secondary to inflammatory/erosive arthropathy not excluded. Dictated by: Kevan Au M.D. on 05/09/2021 at 11:27 Approved by: Kevan Au M.D. on 05/09/2021 at 12:23
== END ==
PROVIDERS: PCP Family Medicine; Referring Provider Nurse Practitioner Family; Visit Provider Nurse Practitioner Family
DX: M25.531 Pain in right wrist (principal)
CPT/HCPCS: 73110

== ENCOUNTER → 2021-06-30 16:36 | Outpatient (CLI) | payer MEDICARE, BC, SELFPAY ==
--- NOTE | 2021-06-30 16:38 | DI.MRI.S_ITS ---
PROCEDURE: MR WRIST RT WO CON INDICATIONS: Right wrist pain TECHNIQUE: Noncontrast coronal proton density fast spin echo and T2 fast spin echo with fat saturation; coronal 3-D gradient echo, axial T1 spin echo and T2 fast spin echo with fat saturation, sagittal T1 spin echo through the wrist. COMPARISON: None. FINDINGS: Image quality: Excellent. Bones and cartilage: The carpal bones are normally aligned. T2 hyperintense/T1 hypointense signal is seen in the scaphoid, lunate, capitate and distal ulna, most consistent with fibrocystic change. No definite bone marrow contusion or fracture line. No evidence for avascular necrosis. Signal heterogeneity and thinning of the cartilage surfaces. Carpal ligaments: The scapholunate and lunotriquetral ligaments appear intact. In the absence of intra-articular contrast, the extrinsic carpal ligaments are not well identified. Triangular fibrocartilage complex: T2 hyperintense signal within the peripheral aspect of the TFCC, compatible with degenerative change aforementioned subchondral edema with chondromalacia of the ulna. The extensor carpi ulnaris tendon is normal in location and morphology. Tendons and soft tissues: The carpal tunnel structures appear normal, including the median nerve. The ulnar nerve appears normal within Guyon's canal. All six extensor tendon compartments demonstrate normal morphology, without pathologic tendon sheath fluid. Evidence of synovitis in the radiocarpal and distal radial ulnar articulations. IMPRESSION: 1. 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 2. Edematous signal in the peripheral aspect of the TFCC, compatible with degenerative change/tear. Dictated by: Josh Duran M.D. on 07/03/2021 at 8:54 Approved by: Josh Duran M.D. on 07/03/2021 at 9:12
== END ==
PROVIDERS: PCP Family Medicine; Referring Provider Family Medicine; Visit Provider Family Medicine
DX: M25.531 Pain in right wrist (principal); M65.831 Other synovitis and tenosynovitis, right forearm
CPT/HCPCS: 73221

== ENCOUNTER → 2021-08-11 11:50 | Outpatient (CLI) | payer MEDICARE, BC, SELFPAY ==
[2021-08-11 13:28] LABS: Erythrocyte Sedimentation Rate 1 MM/HR (0-15)
[2021-08-11 13:42] LABS: C-Reactive Protein Quant < 0.5 mg/dL (<1.0); Uric Acid 6.4 mg/dL (3.5-8.5)
[2021-08-11 13:44] LABS: Rheumatoid Factor < 8.6 IU/mL (<12.0)
[2021-08-14 21:03] LABS: CCP Antibodies IgG/IgA 12 units (0-19)
[2021-08-15 19:02] LABS: ANA Screen, IFA Positive (.)
== END ==
PROVIDERS: PCP Family Medicine; Referring Provider Orthopaedic Surgery; Visit Provider Orthopaedic Surgery
DX: M25.531 Pain in right wrist (principal); M19.031 Primary osteoarthritis, right wrist
CPT/HCPCS: 36415; 84550; 85651; 86038; 86140; 86200; 86430

== ENCOUNTER 2021-09-18 17:53 | Emergency (ER) | payer MEDICARE, BC, SELFPAY ==
[2021-09-18 18:24] VITALS: BP 175/92; PULSE 80; RESP 17; TEMP 36.6; O2SAT 97; BMI 34.2
--- NOTE | 2021-09-18 18:28 | DI.RAD.S_ITS ---
PROCEDURE: XR FINGER LT MIN 2V INDICATIONS: dog bite 4th finger TECHNIQUE: AP hand, 2 views of the 4th finger(s) acquired. COMPARISON: None. FINDINGS: Bones: No fractures or dislocations. No suspicious bony lesions. Diffuse joint space narrowing marginal osteophytes and subchondral sclerosis noted involving the interphalangeal joints as well as the 1st carpometacarpal and intercarpal joints with subchondral cysts noted particularly in the scaphoid, radial styloid and distal ulna. Soft tissues: No suspicious soft tissue calcifications. IMPRESSION: No evidence of fracture or foreign body. Osteoarthritis Approved by: Raffi Mcgowan M.D. on 09/18/2021 at 18:12
--- NOTE | 2021-09-18 18:29 | ED_ITS ---
HPI - Wound/Laceration <KEVIN Bazan - Last Filed: 09/18/21 19:31> General Chief Complaint: Wound/Laceration Stated Complaint: Dog Bite, Left Hand Time Seen by Provider: 09/18/21 18:00 Source: patient Mode of arrival: Ambulatory History of Present Illness HPI narrative: 70-year-old male presents with dog bite to his left 4th finger on the distal aspect during a dog fight. Patient states that this dog is up-to-date on vaccinations without rabies, 2 dogs were fighting, he states that middle of it, and has a laceration and puncture wound to the distal aspect of his left 4th finger. Patient does not remember when his last tetanus vaccination was. Patient denies any sensation changes, states he does have full range of motion although it is painful, he states he had some whiskey prior to arrival for the pain. Patient states that he is allergic to bacitracin. Patient tetanus UTD: No Related Data Previous Rx's Medication Instructions Recorded Disabled Parking Permit #1 ea 09/30/20 naproxen 500 mg tablet See Rx Instructions .ROUTE 06/28/21 .COMPLEX #60 tab gabapentin 300 mg capsule See Rx Instructions .ROUTE 08/24/21 .COMPLEX #270 cap amoxicillin 875 mg-potassium 1 tab PO BID 5 Days #10 tab 09/18/21 clavulanate 125 mg tablet diclofenac sodium 1 % topical gel 2 g TOPICAL QID PRN #100 g 09/18/21 (Voltaren Arthritis Pain) mupirocin 2 % topical ointment 1 applic TOPICAL BID 7 Days #15 g 09/18/21 tramadol 50 mg tablet 50 mg PO BID #10 tab 09/18/21 Allergies Allergy/AdvReac Type Severity Reaction Status Date / Time bacitracin [BACITRACIN] Allergy Mild Rash Verified 09/18/21 18:28 neomycin [NEOMYCIN] Allergy Mild Rash Verified 09/18/21 18:28 polymyxin B [POLYMYXIN B] Allergy Mild Rash Verified 09/18/21 18:28 Review of Systems <KEVIN Bazan - Last Filed: 09/18/21 19:31> Review of Systems Narrative: General: denies fever, chills, malaise, sweats, fatigue Head/Neck: denies headache, neck pain, dizziness Eyes: denies visual changes, eye pain Cardio: denies chest pain, palpitations, edema Respiratory: denies dyspnea, cough, orthopnea MSK: denies joint pain, muscle weakness Skin: denies rash, itching, puncture wound and laceration to the distal aspect of his left 4th finger Neuro: denies numbness, tingling Patient History <KEVIN Bazan - Last Filed: 09/18/21 19:31> Medical History Bipolar I, recurrent manic episode, partial remission Cervical radiculopathy Chronic knee pain after total replacement of both knee joints Chronic low back pain Impacted cerumen Lumbar spinal stenosis Right otitis media Right wrist pain Surgical History H/O lumbosacral spine surgery Family History Mother Dementia Father Lung cancer Cirrhosis of liver Social History household members: friend(s) Smoking Status: Former smoker Smoking Status: Former smoker alcohol intake frequency: 0-2 drinks per day Substance Use Type: does not use Exam <KEVIN Bazan - Last Filed: 09/18/21 19:31> Narrative Exam Narrative: Independently reviewed vitals signs and nursing notes. General: cooperative, comfortable, in no acute distress, well developed and well groomed Head: atraumatic, symmetrical facial expressions Neck: supple, atraumatic, without lymphadenopathy. Eyes: pupils equal round and reactive, EOMI, conjunctiva normal Nose: nares patent, no rhinorrhea Mouth/Throat: uvula midline, moist mucus membranes Cardiovascular: regular rate and rhythm, no peripheral edema, warm extremities Respiratory: normal effort, able to speak in complete sentences, no audible wheezing, stridor, or rales. No retractions or tachypnea. MSK: moves all extremities, ambulatory w/steady gait, neurovascularly intact, no weakness Skin: brisk capillary refill, no rash, no erythema, laceration on the medial aspect of his left 4th finger over the DIP joint, approximately 1 cm, puncture wound on the dorsum of his left 4th finger over the DIP joint, no nail involvement. Cap refill intact, less than 2 seconds, full range of motion flexion extension intact at each joint this finger. Wound was cleansed prior to arrival, bleeding is controlled Neuro: normal speech and cognition, A&O x3, normal tone Psych: mental status is grossly normal, congruent mood, normal affect, pleasant and cooperative Initial Vital Signs Initial Vital Signs: Vital Signs Temperature 97.8 F 09/18/21 18:24 Pulse Rate 80 09/18/21 18:24 Respiratory Rate 17 09/18/21 18:24 Blood Pressure 175/92 H 09/18/21 18:24 Pulse Oximetry 97 09/18/21 18:24 <Alejo Henderson DO - Last Filed: 09/19/21 07:10> Initial Vital Signs Initial Vital Signs: Vital Signs Temperature 97.8 F 09/18/21 18:24 Pulse Rate 80 09/18/21 18:24 Respiratory Rate 17 09/18/21 18:24 Blood Pressure 175/92 H 09/18/21 18:24 Pulse Oximetry 97 09/18/21 18:24 Procedures <KEVIN Bazan - Last Filed: 09/18/21 19:31> Laceration Repair Laceration 1: Site: hand Side (If applicable): left Size (cm): 1 Description: linear Depth: simple, single layer Local Anesthetic: lidocaine 1% and with bicarb Amount of anesthesia used (mL): 1 Pre-repair: wound explored, irrigated extensively and deep structures intact Skin layer closed with: nylon Size (cm): 5-0 Number of sutures: 1 Technique: simple, interrupted (Loose stitch) Orthopedic Splinting/Casting Injury #1: Side: left Upper Extremity Injury Location: finger Upper Extremity Immobilizer: aluminum form splint and finger (other) Post splinting neuro exam: intact Post splinting vascular exam: intact Placed by: Nursing Course <KEVIN Bazan - Last Filed: 09/18/21 19:31> Orders Ordered: Discontinued Medications Amoxicillin/Clavulanate Potassium (Amoxicillin/Clav 875/125 Mg) 1 tab PO NOW ONE Stop: 09/18/21 19:10 Last Admin: 09/18/21 19:21 Dose: 1 tab Documented by: NANCY Diphtheria/Tetanus/Acell Pertussis (Tet,Diph,Pertuss(Acell),Vac/Pf 0.5 Ml Syringe) 0.5 ml IM .ONCE ONE Stop: 09/18/21 18:29 Last Admin: 09/18/21 18:33 Dose: 0.5 ml Documented by: FLORINDA Ketorolac Tromethamine (Ketorolac 10 Mg Tablet) 10 mg PO NOW ONE Stop: 09/18/21 18:30 Last Admin: 09/18/21 18:34 Dose: 10 mg Documented by: FLORINDA Lidocaine/Sodium Bicarbonate (Lido 1%/Sod Bicarb 8.4% (10ml) 10 Ml Syringe) 10 ml INJ NOW ONE Stop: 09/18/21 18:29 Last Admin: 09/18/21 18:34 Dose: 10 ml Documented by: FLORINDA Mupirocin (Mupirocin 22 Gm Oint) 1 applic TOP BID CARMEN Vital Signs Vital signs: Vital Signs - 8 hr 09/18/21 18:24 Temperature 97.8 F Pulse Rate 80 Respiratory Rate 17 Blood Pressure 175/92 H Pulse Oximetry 97 <Alejo Henderson DO - Last Filed: 09/19/21 07:10> Orders Ordered: Discontinued Medications Amoxicillin/Clavulanate Potassium (Amoxicillin/Clav 875/125 Mg) 1 tab PO NOW ONE Stop: 09/18/21 19:10 Last Admin: 09/18/21 19:21 Dose: 1 tab Documented by: NANCY Diphtheria/Tetanus/Acell Pertussis (Tet,Diph,Pertuss(Acell),Vac/Pf 0.5 Ml Syringe) 0.5 ml IM .ONCE ONE Stop: 09/18/21 18:29 Last Admin: 09/18/21 18:33 Dose: 0.5 ml Documented by: FLORINDA Ketorolac Tromethamine (Ketorolac 10 Mg Tablet) 10 mg PO NOW ONE Stop: 09/18/21 18:30 Last Admin: 09/18/21 18:34 Dose: 10 mg Documented by: FLORINDA Lidocaine/Sodium Bicarbonate (Lido 1%/Sod Bicarb 8.4% (10ml) 10 Ml Syringe) 10 ml INJ NOW ONE Stop: 09/18/21 18:29 Last Admin: 09/18/21 18:34 Dose: 10 ml Documented by: FLORINDA Mupirocin (Mupirocin 22 Gm Oint) 1 applic TOP BID CARMEN Vital Signs Vital signs: Vital Signs - 8 hr 09/18/21 18:24 Temperature 97.8 F Pulse Rate 80 Respiratory Rate 17 Blood Pressure 175/92 H Pulse Oximetry 97 MDM - Wound/Laceration <Clarisa Hurst [facility] - Last Filed: 09/18/21 19:31> Imaging Data Extremity x-ray #1: Radiologist's Impression: PROCEDURE:? XR FINGER LT MIN 2V ? INDICATIONS:? dog bite 4th finger ? TECHNIQUE:? AP hand, 2 views of the 4th finger(s) acquired.? ? COMPARISON:? None. ? FINDINGS:? ? Bones:? No fractures or dislocations.? No suspicious bony lesions.? Diffuse joint space narrowing marginal osteophytes and subchondral sclerosis noted involving the interphalangeal joints as well as the 1st carpometacarpal and intercarpal joints with subchondral cysts noted particularly in the scaphoid, radial styloid and distal ulna. ? Soft tissues:? No suspicious soft tissue calcifications.? ? IMPRESSION:? ? No evidence of fracture or foreign body. ? Osteoarthritis ? ? ? Approved by: Raffi Mcgowan M.D. on 09/18/2021 at 18:12? [facility] Narrative Medical decision making narrative: 70-year-old male presents to the emergency department for does bite to his left distal 4th finger with a laceration on the medial aspect and a puncture wound on the dorsum over his DIP joint. Patient's finger x-ray does not show any acute fracture, it was noted that he had osteoarthritis of his MCP joint. One suture was placed to the 1 cm laceration across his 4th PIP joint. It was a loose stitch to allow for drainage. Wound was thoroughly cleansed with Hibiclens prior to the closure. Puncture wound was left open. There was no mupirocin available in the hospital, he was given a prescription of this to use topically at home as he is allergic to bacitracin. He was placed in a metal finger splint within nonstick dressing and wrapped with Coban. He tolerated this well, cap refill is less than 2 seconds afterwards. He is given a prescription for tramadol, mupirocin, diclofenac gel for his arthritic joints, and Augmentin for dog bite prophylaxis. Patient is appropriate and amenable to discharge home. Vital signs are stable on repeat examination is unremarkable. Patient has been informed of results. Patient has been given strict return to ER precautions for any new or worsening symptoms. Patient understands to follow up closely with outpatient providers as instructed. Patient understands plan and agrees to discharge home. All questions and concerns answered at this time. Discharge Plan Departure Patient Disposition: Home Clinical Impression: Dog bite of finger Qualifiers: Encounter type: initial encounter Qualified Code(s): S61.259A - Open bite of unspecified finger without damage to nail, initial encounter Instructions: Animal Bites, DI for Puncture Wound Activity Restrictions/Additional Instructions: *You have been diagnosed with a dog bite to your left 4th finger with a puncture wound and a laceration. Please keep this in a splint for the next week until it is time for your suture to come out. Please leave this suture in for approximately 10 days, it can be removed at that point. You can come back here or go to the emergency department or have another trained professional take this out for you. Please take your antibiotics for the next 5 days, you received a tetanus today so you are good for another 10 years. Please fruit or nut picker your prescriptions at [facility] in [facility]. Your x-ray did not show any fracture although it does show arthritis. I have given you a prescription for topical Voltaren which may be helpful for your arthritic joints. *What to do: *Please continue to take your regular medications as directed. [ x] New medication prescriptions sent to your pharmacy: [Jenise Diaz] [ ] New medication written as a paper prescription [ ] No new medications given *Please follow up with your primary care provider in 2-3 days, call for an appointment. Let them know you were seen in the Emergency Department and that we asked that you be seen for follow-up. We will electronically transmit a record of today's note if your PCP is in our system *If you do not have a primary care provider please contact [phone] to establish care with one of the [facility] primary care providers. *Return to Emergency Department if you should have any new, worsening or concerning symptoms, such as [fever greater than 101F, chills, worsening pain, persistent vomiting or other bothersome symptoms] Prescriptions: New amoxicillin-pot clavulanate 875-125 mg tablet 1 tab PO BID 5 Days Qty: 10 0RF tramadol 50 mg tablet 50 mg PO BID Qty: 10 0RF mupirocin 2 % ointment 1 applic topical BID 7 Days Qty: 15 0RF diclofenac sodium [Voltaren Arthritis Pain] 1 % gel 2 g topical QID PRN (Reason: pain) Qty: 100 0RF Rx Instructions: apply to single elbow, wrist or hand; for hand includes palm/fingers/back of hand No Action (DME) Disabled Parking Permit See Rx Instructions .Route .MEDSUPPLY Qty: 1 0RF Rx Instructions: As directed naproxen 500 mg tablet See Rx Instructions .ROUTE .COMPLEX Qty: 60 5RF Dose Instruction: TAKE 1 TABLET BY MOUTH TWICE DAILY WITH FOOD. DO NOT TAKE WITH OTHER NSAIDS Rx Instructions: TAKE 1 TABLET BY MOUTH TWICE DAILY WITH FOOD. DO NOT TAKE WITH OTHER NSAIDS gabapentin 300 mg capsule See Rx Instructions .ROUTE .COMPLEX Qty: 270 0RF Dose Instruction: TAKE 3 CAPSULES BY MOUTH THREE TIMES DAILY Rx Instructions: TAKE 3 CAPSULES BY MOUTH THREE TIMES DAILY Referrals: Francisco Dyer DO [Primary Care Provider] - <Alejo Henderson DO - Last Filed: 09/19/21 07:10> Cosign ED Attending Cosignature Attestation: Dr Henderson Co-Sign Statement: I was available for consultation during this patient's emergency department visit. This chart is signed by myself for administrative purposes only. I did not have direct contact with this patient during this visit. They were seen independently by the APC.
[2021-09-18] MEDS: TET,DIPH,PERTUSS(ACELL),VAC/PF 0.5 ML SYRINGE IM (18:33)
[2021-09-18] MEDS: LIDO 1%/SOD BICARB 8.4% (10ML) 10 ML SYRINGE INJ (18:34)
[2021-09-18] MEDS: KETOROLAC 10 MG TABLET PO (18:34)
[2021-09-18] MEDS: AMOXICILLIN/CLAV 875/125 MG 1 TAB PO (19:21)
== END 2021-09-18 19:47 | disposition home or self-care (01) ==
PROVIDERS: Emergency Provider Nurse Practitioner Critical Care Medicine; PCP Family Medicine
DX: S61.255A Open bite of left ring finger without damage to nail, initial encounter (principal); W54.0XXA Bitten by dog, initial encounter; Z23 Encounter for immunization
CPT/HCPCS: 12001; 73140; 90471; 99283; 99284; 90715

== ENCOUNTER → 2022-01-08 08:27 | Outpatient (CLI) | payer MEDICARE, BC, SELFPAY ==
--- NOTE | 2022-01-08 08:30 | DI.RAD.S_ITS ---
PROCEDURE: XR LUMBAR SPINE MIN 4V INDICATIONS: BACK PAIN TECHNIQUE: 5 views of the lumbar spine were acquired, including bilateral oblique views. COMPARISON: [facility], , L-SPINE 2-3 VIEWS, 02/18/2015, 10:34. FINDINGS: Bones: 5 nonrib-bearing vertebrae are present. There is normal bony alignment. No acute vertebral body compression fractures. No suspicious bony lesions. Moderate multilevel lumbar spondylosis with degenerative endplate changes, disc space loss, and endplate osteophyte formation. Findings are most pronounced at L3-4. Moderate-severe multilevel facet arthropathy most pronounced from L2-3 through L4-5. Overall, degree of spondylosis has progressed compared to the prior study. Soft tissues: Overlying bowel gas pattern is normal. No suspicious soft tissue calcifications. Oblique images: No pars defects. IMPRESSION: Lumbar spine without acute fracture or malalignment. Interval progression of moderate-severe multilevel lumbar spondylosis. Dictated by: Kevan Au M.D. on 01/08/2022 at 12:45 Approved by: Kevan Au M.D. on 01/08/2022 at 12:48
== END ==
PROVIDERS: PCP Family Medicine; Referring Provider Physical Medicine & Rehabilitation; Visit Provider Physical Medicine & Rehabilitation
DX: M47.816 Spondylosis without myelopathy or radiculopathy, lumbar region (principal); M47.817 Spondylosis without myelopathy or radiculopathy, lumbosacral region; M48.061 Spinal stenosis, lumbar region without neurogenic claudication; M51.26 Other intervertebral disc displacement, lumbar region; Z98.890 Other specified postprocedural states
CPT/HCPCS: 72110; 99214

== ENCOUNTER → 2022-01-17 12:02 | Outpatient (CLI) | payer MEDICARE, BC, SELFPAY ==
--- NOTE | 2022-01-17 12:03 | DI.MRI.S_ITS ---
PROCEDURE: MR LUMBAR SPINE WO CON INDICATIONS: post lami syndrome TECHNIQUE: Noncontrast sagittal T1 spin echo and T2 fast echo, sagittal STIR, and T2 fast spin echo through the lumbar spine. In cases with scoliosis, additional coronal T2 fast spin echo may be performed. COMPARISON: [facility], MR, MR LUMBAR SPINE WO/W CON, 02/04/2020, 8:04. [facility], MR, MR LUMBAR SPINE WO CON, 08/04/2019, 7:22. [facility], CR, XR LUMBAR SPINE MIN 4V, 01/08/2022, 8:59. [facility], MR, MR LUMBAR SPINE WO CON, 05/02/2018, 13:53. FINDINGS: Image quality: Excellent. Alignment and Curvature: There is normal bony alignment. Bone Marrow: Marrow is of normal overall signal. No acute vertebral body compression fractures. Spinal Cord: Conus medullaris terminates at the L1-L2 level. Visualized cord demonstrates normal signal and size. Paraspinous Soft Tissues: No paravertebral masses. This patient has transitional lumbar anatomy. For the purposes of this examination, the level with the last pair of ribs is considered to be T12. By this numbering scheme, there is a rudimentary S1-S2 disc level. This numbering scheme is chosen to remain consistent with the prior MRI report. T12-L1: Normal appearance. L1-L2: The disc height and disk signal are well-preserved. Mild generalized disc bulge is seen. Mild to moderate facet hypertrophy is seen. Moderate bilateral neural foraminal narrowing is seen. Mild central canal narrowing is seen. These degenerative changes are minimally progressed compared to the prior. L2-L3: The disc height is well-preserved. Loss of disc signal is seen at this level. Moderate generalized disc bulge is seen. There is a superimposed central disc protrusion. Moderate facet joint hypertrophy is seen. Moderate bilateral neural foraminal narrowing can be seen, left worse than right. At least moderate central canal narrowing is seen at this level. Stable from the prior study. L3-L4: The disc height is well-preserved. Loss of disc signal is seen at this level. Prior right hemilaminectomy change can be seen. Moderate generalized disc bulge is seen. At least moderate facet hypertrophy is seen. There is moderate to severe bilateral neural foraminal narrowing seen, with an associated a degree of compression seen upon the exiting nerve roots. When comparison is made with the prior images, these findings are similar. L4-L5: Postoperative changes are seen at this level, with prior right hemilaminectomy. At least moderate loss of disc height and disc signal can be seen. At least moderate disc bulge is seen. There is a superimposed central disc protrusion. The previously seen endplate edema is not seen. There is now seen fatty metaplasia (Modic type 2 changes). Moderate to prominent facet hypertrophy is seen. There is moderate to severe bilateral neural foraminal narrowing seen, with an associated a degree of compression seen upon the exiting nerve roots. Moderate central canal narrowing is seen. The previously seen prominent soft tissue material along the posterior aspect of the disc is no longer seen. The degree of central canal narrowing is improved since the prior. L5-S1: [id number] loss of disc height and disc signal can be seen. Moderate disc bulge is seen, which is eccentric to the right. At least moderate facet hypertrophy is seen. There is moderate to severe bilateral neural foraminal narrowing seen, with an associated a degree of compression seen upon the exiting nerve roots. Moderate central canal narrowing is seen. No significant change from the prior. IMPRESSION: Improved appearance of the L4-L5 level, with the prominent soft tissue material posterior to the disc no longer seen. The degree of central canal narrowing at this level has clearly improved. Mild progression of degenerative change at L1-L2 compared to 2020. Otherwise, stable multilevel degenerative changes. Dictated by: Tico Tolbert M.D. on 01/17/2022 at 14:13 Approved by: Tico Tolbert M.D. on 01/17/2022 at 14:20
== END ==
PROVIDERS: PCP Family Medicine; Referring Provider Physical Medicine & Rehabilitation; Visit Provider Physical Medicine & Rehabilitation
DX: M51.26 Other intervertebral disc displacement, lumbar region (principal); M47.816 Spondylosis without myelopathy or radiculopathy, lumbar region
CPT/HCPCS: 72148

== ENCOUNTER → 2022-03-05 10:25 | Outpatient (CLI) | payer MEDICARE, BC, SELFPAY ==
[2022-03-05 14:27] LABS: COVID19 -Nasal RAPID Negative (Negative)
== END ==
PROVIDERS: PCP Family Medicine; Visit Provider Physical Medicine & Rehabilitation
DX: Z20.822 Contact with and (suspected) exposure to COVID-19 (principal)
CPT/HCPCS: 87635; C9803

== ENCOUNTER 2022-03-06 13:28 | Outpatient (CLI) | payer MEDICARE, BC, SELFPAY ==
[2022-03-06] VITALS (8 sets, daily range): BP systolic 136–188; BP diastolic 63–86; PULSE 53–62; RESP 14–22; TEMP 36.4; O2SAT 95–99
--- NOTE | 2022-03-06 13:29 | DI.RAD.S_ITS ---
PROCEDURE: PAIN L INTERLAMINAR/CAUDAL INJ INDICATIONS: SPONDYLOSIS COMPARISON: [facility], MR, MR LUMBAR SPINE WO CON, 01/17/2022, 12:17. FINDINGS: Fluoroscopic spot filming was performed to verify placement of a spinal needle at the L5-S1 level, as labeled on the films. Appropriate location of the needle tip was confirmed by injection of iodinated contrast. IMPRESSION: No significant intraprocedural abnormality. Dictated by: Tico Tolbert M.D. on 03/06/2022 at 14:46 Approved by: Tico Tolbert M.D. on 03/06/2022 at 14:46
[2022-03-06] MEDS: MIDAZOLAM 2 MG/2 ML VIAL IV (14:05)
[2022-03-06] MEDS: IOPAMIDOL 15 ML VIAL 3 ML INJ (14:11)
[2022-03-06] MEDS: BUPIVACAINE 0.25% (PF) VIAL 5 ML SUBCUT (14:12)
[2022-03-06] MEDS: BETAMETHASONE 30 MG/5 ML MDV 12 MG IM (14:13)
[2022-03-06] MEDS: DEXAMETHASONE 10 MG/ML VIAL 30 MG INJ (14:14)
--- NOTE | 2022-03-06 14:21 | PM.PROC.IR.1 ---
Date/Time/Diagnoses Date of procedure: 03/06/22 Time of procedure: 14:21 Pre-procedure diagnosis: 1. HNP WITH RADICULAR FEATURES, 2. MULTILEVEL CENTRAL STENOSIS, Post-procedure diagnosis: same Procedure Notes Procedure: 1. FLUOROSCOPICALLY GUIDED CONTRAST CONTROLLED INTERLAMINAR EPIDURAL STEROID INJECTION - L5/S1 Indications: Tiffany is referred by Dr. Dyer for treatment of Bilateral Foraminal Stenosis L>R LE symptoms. Physician: Nilesh Jones Total Fluoroscopy time (seconds): 9 Total sedation minutes: 11 Complications: none Procedure in detail & Post-procedure care: FINDINGS Multilevel Central Spinal Stenosis with Nerve Root Compression DESCRIPTION OF PROCEDURE Fluoroscopically guided, contrast-controlled L5/S1 translaminar epidural steroid injection. Following review of allergy and review of potential side effects and complications, including, but not necessarily limited to, infection, allergic reaction, local tissue breakdown, temporary as well as permanent nerve injury, paralysis, stroke and possible , the patient indicated that the patient understood and agreed to proceed. An informed consent document was signed by the patient, witnessed by a nurse, and placed in the patient's chart. Additionally, other treatment options including modalities, medications, and physical therapy were reviewed with the patient. After review of previous anaesthesic history and IV conscious sedation the patient was deemed safe to proceed with today?s procedure with IV conscious sedation as ASA class II designation. Safety time-out was performed to confirm patient ID, procedure to be performed and site of procedure. IV sedation was accomplished with a combination of 2mg of Versed administered by the RN after DO order, titrated to patient comfort during the course of the procedure while the patient remained responsive to all verbal commands. In the prone position, following sterile prep and drape of the lumbar region, the L5/S1 translaminar space was identified fluoroscopically. The skin was anesthetized via a 25-gauge, 1.5-inch needle with 1% lidocaine solution. At this point, a 22-gauge short bevel spinal needle was atraumatically introduced and advanced under fluoroscopic guidance into the region of the L5/S1 translaminar space. Depth was confirmed on lateral view. Radiological data, including multiple fluoroscopic views of the lumbar spine, reveal a spinal needle at the L5/S1 translaminar space. Lateral views then show placement of the needle in the epidural space. Subsequent views show contrast material flowing superiorly and inferiorly in the epidural space. No vascular or intrathecal uptake is observed. At this point, using loss of resistance technique with saline and air, the epidural space was entered. This was confirmed following negative aspiration with injection of approximately 1.5cc of Isovue 200, showing excellent epidural flow without vascular or intrathecal uptake. At this point, 1cc of 1% lidocaine solution combined with 3cc or 20mg of dexamethasone and 6mg of betamethasone was injected without incident. The patent tolerated the procedure without signs of symptoms of complications prior to transfer to the recovery area for further monitoring. The patient was then transferred to the recovery area where they were observed for an appropriate period of time after the injection. The patient reported a VAS score of 6 prior to the procedure and a post-procedure VAS of 0. POST OP INSTRUCTIONS The patient was provided a Pain Log to continue to record their response to the target-specific procedure prior to follow-up visit with their referring physician. Additionally, specific post-injection care instructions and a contact number to our office were provided if concerns arise regarding possible complications associated with the procedure are suspected.
== END 2022-03-06 15:24 | disposition home or self-care (01) ==
PROVIDERS: PCP Family Medicine; Referring Provider Physical Medicine & Rehabilitation; Visit Provider Physical Medicine & Rehabilitation
DX: M48.062 Spinal stenosis, lumbar region with neurogenic claudication; M47.816 Spondylosis without myelopathy or radiculopathy, lumbar region
CPT/HCPCS: 62323; 99152; J0702; J1100; J2250; J3490

== ENCOUNTER → 2022-08-13 12:56 | Outpatient (CLI) | payer MEDICARE, BC, SELFPAY ==
--- NOTE | 2022-08-13 12:58 | DI.RAD.S_ITS ---
PROCEDURE: XR FOOT LT MIN 3V INDICATIONS: Left toe pain TECHNIQUE: 3 views of the foot were acquired. COMPARISON: None. FINDINGS: Bones: Fractures are seen involving the proximal aspect of the proximal phalanx of the 4th and 5th toes. Intra-articular involvement can be seen involving the 5th toe. No suspicious bony lesions. Degenerative changes are seen throughout, which are worst involving the 1st ray and the Lisfranc joint. A moderate plantar calcaneal spur is seen. Soft tissues: Calcification and potential fragmentation can be seen involving the Achilles insertion along the posterior calcaneus. IMPRESSION: 4th and 5th toe fractures. Abnormal Achilles, likely reflecting prior avulsion injuries or partial tears. Dictated by: Tico Tolbert M.D. on 08/13/2022 at 12:36 Approved by: Tico Tolbert M.D. on 08/13/2022 at 12:38
== END ==
PROVIDERS: PCP Family Medicine; Referring Provider Physician Assistant; Visit Provider Physician Assistant
DX: S92.512A Displaced fracture of proximal phalanx of left lesser toe(s), initial encounter for closed fracture (principal); M79.675 Pain in left toe(s); M77.32 Calcaneal spur, left foot; X58.XXXA Exposure to other specified factors, initial encounter
CPT/HCPCS: 73630

== ENCOUNTER 2022-10-09 14:06 | Outpatient (CLI) | payer MEDICARE, BC, SELFPAY ==
[2022-10-09] VITALS (7 sets, daily range): BP systolic 155–187; BP diastolic 71–87; PULSE 60–69; RESP 14–20; TEMP 37; O2SAT 90–97
--- NOTE | 2022-10-09 14:07 | DI.RAD.S_ITS ---
PROCEDURE: PAIN L INTERLAMINAR/CAUDAL INJ INDICATIONS: SPONDYLOSIS COMPARISON: [facility], XA, PAIN L INTERLAMINAR/CAUDAL INJ, 03/06/2022, 14:10. FINDINGS: Fluoroscopic spot filming was performed to verify placement of a spinal needle at the L5-S1 level, as labeled on the films. Appropriate location of the needle tip was confirmed by injection of iodinated contrast. IMPRESSION: No significant intraprocedural abnormality. Dictated by: Tico Tolbert M.D. on 10/09/2022 at 18:04 Approved by: Tico Tolbert M.D. on 10/09/2022 at 18:04
[2022-10-09] MEDS: MIDAZOLAM 2 MG/2 ML VIAL IV (15:11)
[2022-10-09] MEDS: BUPIVACAINE 0.25% (PF) VIAL 2 ML INJ (15:14)
[2022-10-09] MEDS: BETAMETHASONE 30 MG/5 ML MDV 6 MG INJ (15:17)
[2022-10-09] MEDS: DEXAMETHASONE 10 MG/ML VIAL 20 MG INJ (15:17)
[2022-10-09] MEDS: IOPAMIDOL 15 ML VIAL 3 ML INJ (15:18)
--- NOTE | 2022-10-09 15:25 | P.PCN_ITS ---
Date/Time/Diagnoses Date of procedure: 10/09/22 Time of procedure: 15:25 Pre-procedure diagnosis: 1. HNP WITH RADICULAR FEATURES, 2. MULTILEVEL CENTRAL STENOSIS, Post-procedure diagnosis: same Procedure Notes Procedure: 1. FLUOROSCOPICALLY GUIDED CONTRAST CONTROLLED INTERLAMINAR EPIDURAL STEROID INJECTION - L5/S1 Indications: Tiffany is referred by Dr. Dyer for treatment of Bilateral Foraminal Stenosis L>R LE symptoms. Physician: Nilesh Jones Total Fluoroscopy time (seconds): 6 Total sedation minutes: 10 Complications: none Procedure in detail & Post-procedure care: FINDINGS Multilevel Central Spinal Stenosis with Nerve Root Compression DESCRIPTION OF PROCEDURE Fluoroscopically guided, contrast-controlled L5/S1 translaminar epidural steroid injection. Following review of allergy and review of potential side effects and complications, including, but not necessarily limited to, infection, allergic reaction, local tissue breakdown, temporary as well as permanent nerve injury, paralysis, stroke and possible , the patient indicated that the patient understood and agreed to proceed. An informed consent document was signed by the patient, witnessed by a nurse, and placed in the patient's chart. Additionally, other treatment options including modalities, medications, and physical therapy were reviewed with the patient. After review of previous anaesthesic history and IV conscious sedation the patient was deemed safe to proceed with today?s procedure with IV conscious sedation as ASA class II designation. Safety time-out was performed to confirm patient ID, procedure to be performed and site of procedure. IV sedation was accomplished with a combination of 2mg of Versed administered by the RN after DO order, titrated to patient comfort during the course of the procedure while the patient remained responsive to all verbal commands. In the prone position, following sterile prep and drape of the lumbar region, the L5/S1 translaminar space was identified fluoroscopically. The skin was anesthetized via a 25-gauge, 1.5-inch needle with 1% lidocaine solution. At this point, a 22-gauge short bevel spinal needle was atraumatically introduced and advanced under fluoroscopic guidance into the region of the L5/S1 translaminar space. Depth was confirmed on lateral view. Radiological data, including multiple fluoroscopic views of the lumbar spine, reveal a spinal needle at the L5/S1 translaminar space. Lateral views then show placement of the needle in the epidural space. Subsequent views show contrast material flowing superiorly and inferiorly in the epidural space. No vascular or intrathecal uptake is observed. At this point, using loss of resistance technique with saline and air, the epidural space was entered. This was confirmed following negative aspiration with injection of approximately 1.5cc of Isovue 200, showing excellent epidural flow without vascular or intrathecal uptake. At this point, 1 cc of 1% lidoc carrington solution combined with 3cc or 20mg of dexamethasone and 6mg of betamethasone was injected without incident. The patent tolerated the procedure without signs of symptoms of complications prior to transfer to the recovery area for further monitoring. The patient was then transferred to the recovery area where they were observed for an appropriate period of time after the injection. The patient reported a VAS score of 6 prior to the procedure and a post-procedure VAS of 0. POST OP INSTRUCTIONS The patient was provided a Pain Log to continue to record their response to the target-specific procedure prior to follow-up visit with their referring physician. Additionally, specific post-injection care instructions and a contact number to our office were provided if concerns arise regarding possible complications associated with the procedure are suspected.
== END 2022-10-09 15:42 | disposition home or self-care (01) ==
PROVIDERS: PCP Family Medicine; Referring Provider Physical Medicine & Rehabilitation; Visit Provider Physical Medicine & Rehabilitation
DX: M51.17 Intervertebral disc disorders with radiculopathy, lumbosacral region (principal); M48.07 Spinal stenosis, lumbosacral region
CPT/HCPCS: 62323; 99152; J0702; J1100; J2250; J3490

== ENCOUNTER 2023-03-06 16:31 | Emergency (ER) | payer MEDICARE, BC, SELFPAY ==
[2023-03-06 16:43] VITALS: BP 201/89; PULSE 75; RESP 16; TEMP 37.4; O2SAT 96; BMI 33.4
[2023-03-06 16:51] VITALS: BP 195/93
[2023-03-06 17:11] LABS: COVID19 -Nasal RAPID Negative (Negative)
--- NOTE | 2023-03-06 18:36 | ED.FEVER ---
HPI - Fever <Katerin Limon PA-C - Last Filed: 03/06/23 18:42> General Chief Complaint: Fever Stated Complaint: fever, off balance Time Seen by Provider: 03/06/23 18:24 Source: patient Mode of arrival: Ambulatory History of Present Illness HPI Narrative: Patient is a 72-year-old male with 3 days of increasing left-sided facial pain and fever up to 101.5 today at home. He also feels unwell. He knows he has a broken tooth in the left upper and he has a swollen lymph node on his left neck. He has had a mild sore throat or cough or runny nose, no chest pain, nausea, vomiting or urinary symptoms. He denies any difficulty swallowing or difficulty breathing. Related Data Previous Rx's Medication Instructions Recorded Disabled Parking Permit #1 ea 09/30/20 naproxen 500 mg tablet See Rx Instructions .Route 06/28/21 .COMPLEX #60 tabs diclofenac sodium 1 % topical gel 2 g topical QID PRN pain #100 grams 09/18/21 (Voltaren Arthritis Pain) nirmatrelvir 300 mg (150 mg See Rx Instructions PO .COMPLEX 07/27/22 x2)-ritonavir 100 mg tablet,dose #30 ea pack (Paxlovid) gabapentin 300 mg capsule See Rx Instructions .Route 12/12/22 .COMPLEX #270 caps Allergies Allergy/AdvReac Type Severity Reaction Status Date / Time bacitracin [BACITRACIN] Allergy Mild Rash Verified 01/09/23 11:44 neomycin [NEOMYCIN] Allergy Mild Rash Verified 01/09/23 11:44 polymyxin B [POLYMYXIN B] Allergy Mild Rash Verified 01/09/23 11:44 Review of Systems <Katerin Limon PA-C - Last Filed: 03/06/23 18:42> Review of Systems ROS Unobtainable: All systems reviewed & are unremarkable except as noted in HPI and below Patient History <Katerin Limon PA-C - Last Filed: 03/06/23 18:42> Medical History Bipolar I, recurrent manic episode, partial remission Cervical radiculopathy Chronic knee pain after total replacement of both knee joints Chronic low back pain Impacted cerumen Lumbar spinal stenosis Right otitis media Right wrist pain Surgical History H/O lumbosacral spine surgery History of carpal tunnel release of both wrists Family History Mother Dementia Father Lung cancer Cirrhosis of liver Social History household members: friend(s) Smoking Status: Former smoker Smoking Status: Former smoker alcohol intake frequency: 0-2 drinks per day Substance Use Type: does not use Exam <Katerin Limon PA-C - Last Filed: 03/06/23 18:42> Narrative Exam Narrative: GENERAL: 72 year old patient appears stated age. Well-developed patient, in no distress. NEURO: AOx3. HEAD: Atraumatic. Normocephalic. EYES: Pupils equal round and reactive. Extraocular motions intact. No scleral icterus. No injection or drainage. ENT: Nose without bleeding or purulent drainage. Throat without erythema, tonsillar hypertrophy or exudate. Tender left anterior cervical lymphadenopathy. No significant dental abscess visible, tender to palpation over gums on left upper dentition. No mastoid tenderness. No bony mandibular tenderness. Airway patent. No visible erythema or edema of the external face or neck. NECK: Trachea midline. RESPIRATORY: No distress EXTREMITIES: No edema or joint tenderness. SKIN: No rash or erythema of visible areas Initial Vital Signs Initial Vital Signs: Vital Signs Temperature 99.4 F 03/06/23 16:43 Pulse Rate 75 03/06/23 16:43 Respiratory Rate 16 03/06/23 16:43 Blood Pressure 201/89 H 03/06/23 16:43 Pulse Oximetry 96 03/06/23 16:43 Oxygen Delivery Method Room Air 03/06/23 16:43 <Alvin Tineo MD - Last Filed: 03/14/23 08:46> Initial Vital Signs Initial Vital Signs: Vital Signs Temperature 99.4 F 03/06/23 16:43 Pulse Rate 75 03/06/23 16:43 Respiratory Rate 16 03/06/23 16:43 Blood Pressure 201/89 H 03/06/23 16:43 Pulse Oximetry 96 03/06/23 16:43 Oxygen Delivery Method Room Air 03/06/23 16:43 Course <Katerin Limon PA-C - Last Filed: 03/06/23 18:42> Orders Ordered: ED Orders 03/06/23 16:51 COVID19 -Nasal RAPID Stat Vital Signs Vital signs: Vital Signs - 8 hr 03/06/23 16:43 03/06/23 16:51 Temperature 99.4 F Pulse Rate 75 Respiratory Rate 16 Blood Pressure 201/89 H 195/93 H Pulse Oximetry 96 Oxygen Delivery Method Room Air <Alvin Tineo MD - Last Filed: 03/14/23 08:46> Orders Ordered: ED Orders 03/06/23 16:51 COVID19 -Nasal RAPID Stat Vital Signs Vital signs: Vital Signs - 8 hr 03/06/23 16:43 03/06/23 16:51 Temperature 99.4 F Pulse Rate 75 Respiratory Rate 16 Blood Pressure 201/89 H 195/93 H Pulse Oximetry 96 Oxygen Delivery Method Room Air MDM - Fever <Katerin Limon PA-C - Last Filed: 03/06/23 18:42> Lab Data Labs: Lab Results 03/06/23 Range/Units 16:51 SARS-CoV-2 (PCR) Negative (Negative) MDM Narrative Medical decision making narrative: Multiple etiologies for patient's symptoms considered including, but not limited to: Dental abscess, strep pharyngitis, viral infection, mastoiditis, peritonsillar abscess, neck space infection. Patient had a negative COVID test in the emergency department. He has no focal signs of infection aside from a tender anterior cervical lymph node and mild tenderness with palpation of his left upper jaw. No indication for CT imaging today. Given that he has had a fever with the jaw pain and it will be 1 month until he can see his dentist in [place], I will prescribe a course of antibiotics to prevent further spread of any dental infection and serious sequelae. Patient's symptoms improved over duration of stay with above-stated therapies. Findings and discharge diagnosis discussed with patient/family followed by verbalization of understanding Return precautions discussed with patient/family whom verbalize understanding of diagnosis and plan <Alvin Tineo MD - Last Filed: 03/14/23 08:46> Lab Data Labs: Lab Results 03/06/23 Range/Units 16:51 SARS-CoV-2 (PCR) Negative (Negative) Discharge Plan Departure Patient Disposition: Home Clinical Impression: Abscess, dental Instructions: DI for Dental Pain Activity Restrictions/Additional Instructions: *You have been diagnosed with suspected dental infection. I will prescribe 7 days of antibiotics. Please take all the antibiotics even if you are feeling better. If you feel worse and developed swelling on the outside of your face, can not swallow or are having trouble breathing, please return to the emergency department. Please schedule an appointment with your dentist for definitive care. *What to do: *Please continue to take your regular medications as directed. [x ] New medication prescriptions sent to your pharmacy: [facility] [ ] New medication written as a paper prescription [ ] No new medications given *Please follow up with your primary care provider in 2-3 days, call for an appointment. Let them know you were seen in the Emergency Department and that we ask that you be seen in follow up. We will electronically transmit a record of today's note if your PCP is in our system *If you do not have a primary care provider please contact the [facility] Resource line at [phone]. They will ask some questions about your medical history and help get you set up with a doctor in the community. *Return to Emergency Department if you should have any new, worsening or concerning symptoms, such as [fever greater than 101 F, shaking chills, worsening pain, persistent vomiting or other concerning symptoms]. Prescriptions: No Action (DME) Disabled Parking Permit See Rx Instructions .Route .MEDSUPPLY Qty: 1 0RF Rx Instructions: As directed naproxen 500 mg tablet See Rx Instructions .ROUTE .COMPLEX Qty: 60 5RF Dose Instruction: TAKE 1 TABLET BY MOUTH TWICE DAILY WITH FOOD. DO NOT TAKE WITH OTHER NSAIDS Rx Instructions: TAKE 1 TABLET BY MOUTH TWICE DAILY WITH FOOD. DO NOT TAKE WITH OTHER NSAIDS Paxlovid 300 mg (150 mg x 2)-100 mg tablets,dose pack See Rx Instructions PO .COMPLEX Qty: 30 0RF Rx Instructions: take TWO 150 mg tablets of nirmatrelvir with ONE 100 mg tablet of ritonavir twice daily for 5 days PO gabapentin 300 mg capsule See Rx Instructions .ROUTE .COMPLEX Qty: 270 11RF Dose Instruction: TAKE 3 CAPSULES BY MOUTH THREE TIMES DAILY Rx Instructions: TAKE 3 CAPSULES BY MOUTH THREE TIMES DAILY diclofenac sodium [Voltaren Arthritis Pain] 1 % gel 2 g topical QID PRN (Reason: pain) Qty: 100 0RF Rx Instructions: apply to single elbow, wrist or hand; for hand includes palm/fingers/back of hand Referrals: Sha Dyer DO [Primary Care Provider] - Stand Alone Forms: Patient Portal/API <Alvin Tineo MD - Last Filed: 03/14/23 08:46> Cosign ED Attending Markature Attestation: I was immediately available in the department for consultation. ?This documentation has been reviewed and I agree with assessment and plan. Supervised by Alvin Tineo MD
[2023-03-06 18:45] VITALS: BP 194/88; PULSE 60; RESP 18; O2SAT 96
== END 2023-03-06 18:50 | disposition home or self-care (01) ==
PROVIDERS: Emergency Medicine; Emergency Provider Physician Assistant; PCP Family Medicine
DX: K04.7 Periapical abscess without sinus (principal); Z20.822 Contact with and (suspected) exposure to COVID-19
CPT/HCPCS: 87635; 99281; 99282; C9803

== ENCOUNTER → 2023-06-10 11:22 | Outpatient (CLI) | payer MEDICARE, BC, SELFPAY ==
--- NOTE | 2023-06-10 11:23 | DI.RAD.S_ITS ---
PROCEDURE: XR WRIST LT MIN 3V INDICATIONS: Left wrist pain TECHNIQUE: 4 views of the wrist were acquired. COMPARISON: [facility], CR, XR WRIST RT MIN 3V, 05/09/2021, 10:49. FINDINGS: Bones: 2.0 cm lucent lesion with lobulated margins and trace cortical remodeling within the ulnar styloid. Additional lucent lesion without cortical remodeling in the distal pole of the scaphoid, measuring 1.3 cm. Carpocarpal and radiocarpal joint space narrowing with osteophytosis and subchondral cystic change. 1st CMC joint space narrowing with associated osteophytosis and sclerosis. Questionable pathologic fracture through the ulnar styloid. Soft tissues: No suspicious soft tissue calcifications. IMPRESSION: Lucent lesions within the ulnar styloid and scaphoid probably represent bone cysts. Given some degree of bony remodeling of the ulnar styloid lesion, further characterization with MRI with contrast should be considered. Questionable pathologic fracture through the distal ulnar styloid. Dictated by: Jamin Singh M.D. on 06/10/2023 at 13:01 Approved by: Jamin Singh M.D. on 06/10/2023 at 13:04
== END ==
PROVIDERS: PCP Family Medicine; Referring Provider Physician Assistant; Visit Provider Physician Assistant
DX: S52.602A Unspecified fracture of lower end of left ulna, initial encounter for closed fracture (principal); M25.532 Pain in left wrist; M89.9 Disorder of bone, unspecified; M25.561 Pain in right knee; M25.562 Pain in left knee; M51.26 Other intervertebral disc displacement, lumbar region; M48.062 Spinal stenosis, lumbar region with neurogenic claudication; G89.29 Other chronic pain; Z96.653 Presence of artificial knee joint, bilateral
CPT/HCPCS: 73110; 99214

== ENCOUNTER → 2023-06-14 17:14 | Outpatient (CLI) | payer MEDICARE, BC, SELFPAY ==
--- NOTE | 2023-06-14 17:17 | DI.MRI.S_ITS ---
PROCEDURE: MR WRIST LT WO/W CON INDICATIONS: WRIST PAIN W/CYSTS ON XRAY TECHNIQUE: Noncontrast coronal proton density fast spin echo and T2 fast spin echo with fat saturation; coronal 3-D gradient echo, axial T1 spin echo and T2 fast spin echo with fat saturation, axial T1 spin echo with fat saturation, sagittal T1 spin echo through the wrist. Post-contrast axial, coronal, and sagittal T1 spin echo with fat saturation through the wrist. COMPARISON: [facility], CR, XR WRIST LT MIN 3V, 06/10/2023, 11:35. FINDINGS: Image quality: Excellent. Bones and cartilage: Multiple circumscribed [id number] lesions are seen within the visualized osseous structures, most notably within the distal ulna but also with significant lesions in the hamate, lunate, and scaphoid. There is surrounding osseous edema in the distal ulna. There is a suspected nondisplaced fracture of the ulnar styloid that likely pathologic. Full-thickness cartilage loss is seen at the 1st carpometacarpal and triscaphe joints with surrounding subchondral cystic changes, subchondral edema, marginal osteophyte formationNo evidence for avascular necrosis. There is mild diffuse synovial hyperenhancement, on which is more prominent along the ulnar aspect of the wrist. Carpal ligaments: The scapholunate and lunotriquetral ligaments appear intact. On sagittal images, there is volar tilting of the pisiform and the pisohamate ligament appears thickened. Triangular fibrocartilage complex: There is a full-thickness defect within the central triangular fibrocartilage disc. Hyperintense signal is seen at the ulnar styloid attachment. A small amount of fluid is seen in the distal radioulnar joint. Tendons and soft tissues: No suspicious soft tissue enhancement. The carpal tunnel structures appear normal, including the median nerve. The ulnar nerve appears normal within Guyon's canal. The extensor carpi ulnaris tendon appears thickened with increased intrasubstance signal and surrounding fluid in the tendon sheath, suspicious for chronic partial tearing superimposed on tendinosis and tenosynovitis. Mild extensor carpi radialis brevis and longus tendinosis. The remaining tendon compartments demonstrate normal morphology, without pathologic tendon sheath fluid. No soft tissue ganglion cysts. IMPRESSION: 1. Small minimally displaced pathologic fracture at the tip of the ulnar styloid with mild surrounding osseous edema in the distal ulna. 2. Multiple circumscribed [id number] lesions throughout the carpal bones, the largest of which is located in the distal ulna. Differential considerations include chronic osseous erosions, degenerative subchondral cysts, intraosseous ganglia, or simple bone cysts. There is mild synovial hyperenhancement, particularly along the ulnar side of the wrist. Correlation with clinical findings and serologies is recommended to exclude an underlying inflammatory arthritis such as rheumatoid arthritis, although findings could also be produced by chronic primary osteoarthrosis. 3. Partial tearing of the extensor carpi ulnaris tendon at the level of the ulnar styloid superimposed on moderate tendinosis and tenosynovitis. 4. Mild extensor carpi radialis brevis and longus tendinosis. 5. Moderate to severe osteoarthrosis at the 1st carpometacarpal and triscaphe joints. Approved by: Elver Glez M.D. on 06/18/2023 at 9:59
== END ==
PROVIDERS: PCP Family Medicine; Referring Provider Orthopaedic Surgery; Visit Provider Orthopaedic Surgery
DX: M84.432A Pathological fracture, left ulna, initial encounter for fracture (principal); S66.812A Strain of other specified muscles, fascia and tendons at wrist and hand level, left hand, initial encounter; M18.12 Unilateral primary osteoarthritis of first carpometacarpal joint, left hand; M19.032 Primary osteoarthritis, left wrist; M25.532 Pain in left wrist; M89.9 Disorder of bone, unspecified
CPT/HCPCS: 73223; A9579

== ENCOUNTER 2023-06-16 09:56 | Emergency (ER) | payer MEDICARE, BC, SELFPAY ==
[2023-06-16] VITALS (18 sets, daily range): BP systolic 194–245; BP diastolic 89–123; PULSE 55–96; RESP 12–23; TEMP 36.7; O2SAT 95–100; BMI 34.9
--- NOTE | 2023-06-16 10:04 | DI.RAD.S_ITS ---
PROCEDURE: XR CHEST 1V INDICATIONS: chest pain TECHNIQUE: One view of the chest was acquired. COMPARISON: [facility], CR, XR CHEST 2V, 09/02/2018, 15:15. FINDINGS: Surgical changes and devices: None. Lungs and pleura: Low lung volumes. No dense consolidation or pleural effusion. Mediastinum: Normal heart size for low lung volumes. Bones and chest wall: Degenerative changes. IMPRESSION: Single view radiograph with low lung volumes. No acute abnormality. Dictated by: Anuj Perez M.D. on 06/16/2023 at 10:44 Approved by: Anuj Perez M.D. on 06/16/2023 at 10:45
[2023-06-16 10:23] LABS: Add Manual Diff / Slide Review NO; Basophils Absolute Auto 100 /uL (0-100); Basophils Percent Auto 1.7 % (0-2); Eosinophils Absolute Auto 200 /uL (0-450); Eosinophils Percent Auto 3.9 % (2-4); Hematocrit 45.4 % (41-53); Hemoglobin 15.2 g/dL (13.5-17.5); Lymphocytes Absolute Auto 1400 /uL (1100-4500); Lymphocytes Percent Auto 25.8 % (25-40); Mean Corpuscular HGB Conc 33.5 % (30-36); Mean Corpuscular Hemoglobin 30.9 PG (26-34); Mean Corpuscular Volume 92.4 fL (80-100); Monocytes Absolute Auto 400 /uL (0-900); Monocytes Percent Auto 7.2 % (3-14); Neutrophils Absolute Auto 3300 /uL (1500-7000); Neutrophils Percent Auto 61.4 % (50-75); Platelet Count 199 X10^3/uL (150-400); Red Blood Cell Count 4.91 X10^6/uL (4.5-5.9); Red Cell Distribution Width 14.5 % (11.6-14.8); White Blood Cell Count 5.4 X10^3/uL (4.5-11.0)
[2023-06-16 10:29] LABS: Prothrombin Time 11.9 SECONDS (9.4-12.5)
[2023-06-16 10:31] LABS: PTT Partial Thromboplastin Tim 30 SECONDS (25.1-36.5)
[2023-06-16 10:37] LABS: Alanine Aminotransferase 33 IU/L (<50); Albumin 4.6 g/dL (3.5-5.0); Albumin Globulin Ratio 1.5 (1.0-2.8); Alkaline Phosphatase 67 U/L (38-126); Aspartate Aminotransferase 33 IU/L (17-59); BUN Creatinine Ratio 26.7 (6-22); Bilirubin Total 1.1 mg/dL (0.2-1.3); Blood Urea Nitrogen 16 mg/dL (9-20); Calcium 9.3 mg/dL (8.4-10.2); Carbon Dioxide 25 mmol/L (22-32); Chloride 104 mmol/L (98-107); Creatine Kinase 361 U/L (55-170); Estimated Glomerular Filt Rate > 60 mL/min (>60); Glucose 118 mg/dL (80-110); HEMOLYSIS < 15 (0-50); Lipase 110 U/L (23-300); Potassium 4.2 mmol/L (3.4-5.1); Sodium 138 mmol/L (137-145); Total Protein 7.6 g/dL (6.3-8.2)
--- NOTE | 2023-06-16 10:37 | DI.CT.S_ITS ---
PROCEDURE: CT HEAD/BRAIN WO CON INDICATIONS: headache, htn, blurry vision TECHNIQUE: Noncontrast 4.5 mm thick angled axial sections acquired from the foramen magnum to the vertex, with coronal and sagittal reformats. For radiation dose reduction, the following was used: automated exposure control, adjustment of mA and/or kV according to patient size. COMPARISON: None. FINDINGS: Image quality: Good CSF spaces: Basal cisterns are patent. Lateral ventricles are symmetric. Volume: Vascular calcifications. Periventricular white matter disease is commonly seen with chronic microangiopathy. Volume loss is present. These findings are mild Brain: No intracranial hemorrhage. Leyva-white differentiation is grossly maintained. Craniofacial structures: Replacements. Mild paranasal sinus mucosal thickening. IMPRESSION: No acute intracranial abnormality. If there is high concern for parenchymal pathology, consider further evaluation with MRI. Dictated by: Anuj Perez M.D. on 06/16/2023 at 11:05 Approved by: Anuj Perez M.D. on 06/16/2023 at 11:06
[2023-06-16 10:48] LABS: Troponin I < 0.012 ng/mL (0.01-0.034)
--- NOTE | 2023-06-16 11:38 | ED.GENADULT ---
HPI - General Adult General Chief complaint: Hypertension Stated complaint: high B/P, blurry vision and pain above eye Time Seen by Provider: 06/16/23 11:15 Source: patient Mode of arrival: Ambulatory Limitations: no limitations History of Present Illness HPI narrative: This is a 72-year-old male with history of hypertension not currently treated. Patient describes feeling quite anxious. He recently had x-ray of his wrist which showed changes he had an MRI is awaiting follow-up for this, he also stopped smoking marijuana a week ago and is concerned he is supposed to go on a international trip in a week that that maybe derailed secondary to his medical issues. Patient states he was at the walk-in clinic for his wrist several days ago blood pressure was elevated. He bought a blood pressure cuff and start checking had 200 systolic at home. He describes his blood pressure being elevated into the 150-170 range when he is checked intermittently in the past several years. He states he did have a headache last night he had some pain around the orbit of the left eye last night, some blurry vision for several weeks but not changing acutely. He denies any chest pain, no shortness of breath. He states his heart rate will sometimes ?fairly quickly but returns to normal when he exerts himself. Denies any syncope. No nausea, no vomiting. He states he is hungry. No issues with bowel movements or urination. He is had some pain in his joints including his wrist, ankles. Noted some mild swelling in the left ankle where it hurts but no other edema. Patient denies any other neurologic changes. He used to take oxycodone for chronic pain was changed to Tylenol ibuprofen which is somewhat helpful but he has a lot of aches pains. He states his only other daily medication is gabapentin he takes 900 mg t.i.d.. He used to be on a beta shani but stopped it after several years after a friend noted it might be causing depression. Patient states he former smoker, occasional alcohol, was smoking 2 or 3 joints of marijuana daily but quit a week ago. Denies other recreational drugs. Dr. Desouza is his primary care he has set up follow up in his to be seen in July. He has follow up for his wrist MRI with Dr. Vasquez later in the week. Related Data Previous Rx's Medication Instructions Recorded Disabled Parking Permit #1 ea 09/30/20 naproxen 500 mg tablet See Rx Instructions .Route 06/28/21 .COMPLEX #60 tabs diclofenac sodium 1 % topical gel 2 g topical QID PRN pain #100 grams 09/18/21 (Voltaren Arthritis Pain) gabapentin 300 mg capsule See Rx Instructions .Route 12/12/22 .COMPLEX #270 caps lisinopril 10 mg tablet 10 mg PO DAILY #30 tabs 06/16/23 oxycodone-acetaminophen 5 mg-325 1 tab PO Q6H PRN pain #7 tabs 06/16/23 mg tablet (Percocet) Allergies Allergy/AdvReac Type Severity Reaction Status Date / Time bacitracin [BACITRACIN] Allergy Mild Rash Verified 06/10/23 13:16 neomycin [NEOMYCIN] Allergy Mild Rash Verified 06/10/23 13:16 polymyxin B [POLYMYXIN B] Allergy Mild Rash Verified 06/10/23 13:16 Review of Systems Review of Systems ROS Unobtainable: All systems reviewed & are unremarkable except as noted in HPI and below Patient History Medical History Left ulnar fracture Right wrist pain Right otitis media Impacted cerumen Chronic low back pain Chronic knee pain after total replacement of both knee joints Cervical radiculopathy Bipolar I, recurrent manic episode, partial remission Lumbar spinal stenosis Surgical History History of carpal tunnel release of both wrists H/O lumbosacral spine surgery Family History Mother Dementia Father Lung cancer Cirrhosis of liver Social History household members: friend(s) Smoking Status: Former smoker Smoking Status: Former smoker alcohol intake frequency: 0-2 drinks per day Substance Use Type: marijuana Exam Narrative Exam Narrative: GENERAL: Alert and oriented x three, well-appearing male in mild distress. HEENT: Head normocephalic, atraumatic, EOMI, pupils reactive, face symmetric, moist mucous membranes NECK: Supple, full range of motion CARDIOVASCULAR: Regular rate and rhythm without murmurs, rubs or gallops. No JVD. No edema bilateral lower extremities. RESPIRATORY: Breath sounds equal bilaterally, no wheezes rales or rhonchi. ABDOMEN: Soft, nontender. Normoactive bowel sounds all 4 quadrants. No guarding or rebound, rigidity, no mass : No CVA tenderness EXTREMITIES: Normal range of motion, no clubbing or edema. Neurovascularly intact NEUROLOGICAL: Cranial nerves II through XII grossly intact. Moving all extremities SKIN: Warm, dry, no petechiae, no rashes or lesions. Initial Vital Signs Initial Vital Signs: Vital Signs Temperature 98.0 F 06/16/23 10:00 Pulse Rate 96 H 06/16/23 10:00 Respiratory Rate 12 06/16/23 10:00 Blood Pressure 243/119 H 06/16/23 10:00 Pulse Oximetry 99 06/16/23 10:00 Oxygen Delivery Method Room Air 06/16/23 10:00 Course Orders Ordered: ED Orders 06/16/23 10:04 XR chest 1V Stat 06/16/23 10:10 Complete Blood Count AUTO DIFF Stat Comprehensive Metabolic Panel Stat Lipase Stat Magnesium Stat PTT Partial Thromboplastin Darci Stat Prothrombin Time INR Stat Troponin & CK Cardiac Panel Stat 06/16/23 10:12 EKG-12 Lead Stat 06/16/23 10:37 CT head/brain wo con Stat Vital Signs Vital signs: Vital Signs - 8 hr 06/16/23 10:03 06/16/23 10:03 06/16/23 10:15 Pulse Rate 93 H Respiratory Rate 14 Blood Pressure 234/110 H 215/100 H Pulse Oximetry 100 Oxygen Delivery Method Room Air 06/16/23 10:15 06/16/23 10:30 06/16/23 10:57 Pulse Rate 77 73 76 Respiratory Rate 16 18 Blood Pressure Pulse Oximetry 95 97 99 Oxygen Delivery Method 06/16/23 10:58 06/16/23 10:58 06/16/23 11:00 Pulse Rate 76 70 Respiratory Rate 22 Blood Pressure 245/114 H Pulse Oximetry 99 99 Oxygen Delivery Method 06/16/23 11:00 06/16/23 11:15 06/16/23 11:15 Pulse Rate 63 Respiratory Rate 16 Blood Pressure 221/106 H 194/89 H Pulse Oximetry 97 Oxygen Delivery Method 06/16/23 11:30 06/16/23 11:30 06/16/23 11:45 Pulse Rate 65 Respiratory Rate 20 Blood Pressure 199/97 H 205/102 H Pulse Oximetry 96 Oxygen Delivery Method 06/16/23 11:45 06/16/23 12:00 06/16/23 12:09 Pulse Rate 67 63 Respiratory Rate 19 18 Blood Pressure 219/99 H Pulse Oximetry 97 97 Oxygen Delivery Method 06/16/23 12:09 06/16/23 12:15 06/16/23 12:15 Pulse Rate 65 58 L Respiratory Rate 18 17 Blood Pressure 232/101 H Pulse Oximetry 99 98 Oxygen Delivery Method 06/16/23 12:30 06/16/23 12:30 06/16/23 12:45 Pulse Rate 70 56 L Respiratory Rate 23 12 Blood Pressure 225/123 H Pulse Oximetry 99 99 Oxygen Delivery Method 06/16/23 12:46 06/16/23 12:46 06/16/23 12:55 Pulse Rate 55 L 58 L Respiratory Rate Blood Pressure 226/100 H Pulse Oximetry 99 Oxygen Delivery Method 06/16/23 12:55 Pulse Rate Respiratory Rate Blood Pressure 205/90 H Pulse Oximetry Oxygen Delivery Method Medical Decision Making Lab Data 06/16/23 10:10 06/16/23 10:10 Labs: Lab Results 06/16/23 Range/Units 10:10 WBC 5.4 (4.5-11.0) X10^3/uL RBC 4.91 (4.5-5.9) X10^6/uL Hgb 15.2 (13.5-17.5) g/dL Hct 45.4 (41-53) % MCV 92.4 (80-100) fL MCH 30.9 (26-34) PG MCHC 33.5 (30-36) % RDW 14.5 (11.6-14.8) % Plt Count 199 (150-400) X10^3/uL Neut % (Auto) 61.4 (50-75) % Lymph % (Auto) 25.8 (25-40) % [place] % (Auto) 7.2 (3-14) % Eos % (Auto) 3.9 (2-4) % Baso % (Auto) 1.7 (0-2) % Neut # (Auto) 3300 (7738-4340) /uL Lymph # (Auto) 1400 (0644-6250) /uL [place] # (Auto) 400 (0-900) /uL Eos # (Auto) 200 (0-450) /uL Baso # (Auto) 100 (0-100) /uL PT 11.9 (9.4-12.5) SECONDS INR 1.0 (0.9-1.3) APTT 30 (25.1-36.5) SECONDS Sodium 138 (137-145) mmol/L Potassium 4.2 (3.4-5.1) mmol/L Chloride 104 (98-107) mmol/L Carbon Dioxide 25 (22-32) mmol/L BUN 16 (9-20) mg/dL Creatinine 0.60 L (0.66-1.25) mg/dL Estimated GFR > 60 (>60) mL/min BUN/Creatinine Ratio 26.7 H (6-22) Glucose 118 H (80-110) mg/dL Calcium 9.3 (8.4-10.2) mg/dL Magnesium 2.0 (1.6-2.3) mg/dL Total Bilirubin 1.1 (0.2-1.3) mg/dL AST 33 (17-59) IU/L ALT 33 (<50) IU/L Alkaline Phosphatase 67 (38-126) U/L Total Creatine Kinase 361 H (55-170) U/L Troponin I < 0.012 (0.01-0.034) ng/mL Total Protein 7.6 (6.3-8.2) g/dL Albumin 4.6 (3.5-5.0) g/dL Globulin 3.0 (1.7-4.1) g/dL Albumin/Globulin Ratio 1.5 (1.0-2.8) Lipase 110 (23-300) U/L Urine Dip Bedside Urine Glucose Negative Bedside Urine Bilirubin - Negative Bedside Urine Ketone - Negative Urine Specific [place] 1.010 Bedside Urine Occult Blood - Negative Bedside Urine pH 6.0 Bedside Urine Protein - Negative Bedside Urine Urobilinogen - Negative Bedside Urine Nitrite - Negative Bedside Urine Leukocytes - Negative Esterase Point of care testing: Urine Dip Bedside Urine Glucose Negative Bedside Urine Bilirubin - Negative Bedside Urine Ketone - Negative Urine Specific [place] 1.010 Bedside Urine Occult Blood - Negative Bedside Urine pH 6.0 Bedside Urine Protein - Negative Bedside Urine Urobilinogen - Negative Bedside Urine Nitrite - Negative Bedside Urine Leukocytes - Negative Esterase Imaging Data Chest x-ray: Radiologist's Impression: Ashutosh Pacheco(Pablo)??72??M??1950 ? Allergy/Adv: bacitracin, neomycin, polymyxin B (More??) Close Head CT (Signed) Anuj Perez - 06/16/23 Chest X-Ray (Signed) Anuj Perez - 06/16/23 Wrist MRI 06/14/23 Wrist X-Ray (Signed) Jamin Singh - 06/10/23 Injection Lumbar, Sacrum (Signed) Richey,Tico - 10/09/22 Foot X-Ray (Signed) Tomasz,Tico - 08/13/22 Injection Lumbar, Sacrum (Signed) Tomasz,Tico - 03/06/22 Lumbar Spine MRI (Signed) Richey,Tico - 01/17/22 Lumbar Spine X-Ray (Signed) Kevan Au - 01/08/22 Finger X-Ray (Signed) Raffi Mcgowan - 09/18/21 Wrist MRI (Addendum) Josh Duran - 06/30/21 DI Result CC 05/31/21 Wrist X-Ray (Signed) Kevan Au - 05/09/21 Lumbar Spine MRI (Signed) Tomasz,Tico - 02/04/20 Lumbar Spine MRI (Signed) Umer Christianson - 08/04/19 Bone Scan Nuclear Medicine (Signed) Umer Christianson - 08/04/19 Wrist MRI (Signed) Joey Huffman - 06/15/19 Injection for MRI Arthrogram (Signed) Boris Jimenez - 06/15/19 Injection Lumbar, Sacrum (Signed) Dejuan Acevedo - 05/05/19 Cervical Spine X-Ray (Signed) Dejuan Acevedo - 03/23/19 Facet Joint Injection X-Ray (Signed) Djeuan Acevedo - 02/10/19 Facet Joint Injection X-Ray (Cancelled) 02/10/19 Facet Joint Injection X-Ray (Signed) Blake Bradford - 10/01/18 Chest X-Ray (Signed) Umer Christianson - 09/02/18 Injection Lumbar, Sacrum (Signed) Dejuan Acevedo - 07/29/18 Facet Joint Injection X-Ray (Signed) Blake Bradford - 06/25/18 Lumbar Spine MRI (Signed) Adriana Dalton - 05/02/18 [facility] [address] [address] XRay Report Signed Patient: Ashutosh Pacheco MR#: [id number] : 1950 Acct:[id number] Age/Sex: 72 / M Date of Service: 06/16/23 Loc: ED Accession Number: [id number] Procedure: XR chest 1V Ordering Provider: Dorothea Jorgensen D.O. PROCEDURE: XR CHEST 1V INDICATIONS: chest pain TECHNIQUE: One view of the chest was acquired. COMPARISON: [facility], CR, XR CHEST 2V, 09/02/2018, 15:15. FINDINGS: Surgical changes and devices: None. Lungs and pleura: Low lung volumes. No dense consolidation or pleural effusion. Mediastinum: Normal heart size for low lung volumes. Bones and chest wall: Degenerative changes. IMPRESSION: Single view radiograph with low lung volumes. No acute abnormality. Dictated by: Anuj Perez M.D. on 06/16/2023 at 10:44 Approved by: Anuj Perez M.D. on 06/16/2023 at 10:45 CT scan - head: Radiologist's Impression: Close Head CT (Signed) Anuj Perez - 06/16/23 Chest X-Ray (Signed) Anuj Perez - 06/16/23 Wrist MRI 06/14/23 Wrist X-Ray (Signed) Jamin Singh - 06/10/23 Injection Lumbar, Sacrum (Signed) Tico Tolbert - 10/09/22 Foot X-Ray (Signed) Tico Tolbert - 08/13/22 Injection Lumbar, Sacrum (Signed) Tomasz,Tico - 03/06/22 Lumbar Spine MRI (Signed) Toamsz,Tico - 01/17/22 Lumbar Spine X-Ray (Signed) Kevan Au - 01/08/22 Finger X-Ray (Signed) Raffi Mcgowan - 09/18/21 Wrist MRI (Addendum) Josh Duran - 06/30/21 DI Result CC 05/31/21 Wrist X-Ray (Signed) Kevan Au - 05/09/21 Lumbar Spine MRI (Signed) Tico Tolbert - 02/04/20 Lumbar Spine MRI (Signed) Umer Christianson - 08/04/19 Bone Scan Nuclear Medicine (Signed) Umer Christianson - 08/04/19 Wrist MRI (Signed) Joey Huffman - 06/15/19 Injection for MRI Arthrogram (Signed) JimenezBoris - 06/15/19 Injection Lumbar, Sacrum (Signed) Dejuan Acevedo - 05/05/19 Cervical Spine X-Ray (Signed) CurtisDejuan - 03/23/19 Facet Joint Injection X-Ray (Signed) Dejuan Acevedo - 02/10/19 Facet Joint Injection X-Ray (Cancelled) 02/10/19 Facet Joint Injection X-Ray (Signed) Blake Bradford - 10/01/18 Chest X-Ray (Signed) ChristiansonRochelle zuñigaenrrique - 09/02/18 Injection Lumbar, Sacrum (Signed) Dejuan Acevedo - 07/29/18 Facet Joint Injection X-Ray (Signed) Blake Bradford - 06/25/18 Lumbar Spine MRI (Signed) Adriana Dalton - 05/02/18 [place] [address] CT Scan Report Signed Patient: Ashutosh Pacheco MR#: [id number] : 1950 Acct:[id number] Age/Sex: 72 / M Date of Service: 06/16/23 Loc: Accession Number: [id number] Procedure: CT head/brain wo con Ordering Provider: Dorothea Jorgensen D.O. PROCEDURE: CT HEAD/BRAIN WO CON INDICATIONS: headache, htn, blurry vision TECHNIQUE: Noncontrast 4.5 mm thick angled axial sections acquired from the foramen magnum to the vertex, with coronal and sagittal reformats. For radiation dose reduction, the following was used: automated exposure control, adjustment of mA and/or kV according to patient size. COMPARISON: None. FINDINGS: Image quality: Good CSF spaces: Basal cisterns are patent. Lateral ventricles are symmetric. Volume: Vascular calcifications. Periventricular white matter disease is commonly seen with chronic microangiopathy. Volume loss is present. These findings are mild Brain: No intracranial hemorrhage. Leyva-white differentiation is grossly maintained. Craniofacial structures: Replacements. Mild paranasal sinus mucosal thickening. IMPRESSION: No acute intracranial abnormality. If there is high concern for parenchymal pathology, consider further evaluation with MRI. Dictated by: Anuj Perez M.D. on 06/16/2023 at 11:05 Approved by: Anuj Perez M.D. on 06/16/2023 at 11:06 ECG Data Attestation: I personally reviewed and interpreted this ECG as follows: Prior ECG tracings: not available for review Interpretation: Sinus rhythm rate of 79 MI 154 QRS of [address]TC [address] No acute [address] changes appreciated. MDM Narrative Medical decision making narrative: 72-year-old male who is quite hypertensive here in the department he notes he is had history of white coat syndrome, but has also been somewhat elevated in the past 150s to 170s range his when he was checking has not checked for several years. Recently he is had a lot of issues that are making anxious and stopped smoking marijuana. He is not had any acute neurologic changes did have a headache yesterday. Exam overall is reassuring. Head CT is negative for acute change, chest x-ray is negative. CBC has a white count of 5.4 hemoglobin of 15 platelets of 199 coags are negative, electrolytes are appropriate range, normal renal function glucose of 118- LFTs CK 361 with a negative troponin. No acute end-organ damage appreciated. Discussed with patient plan to start lisinopril at a low dose has had beta blockers in the past without much improvement but been off them for years. Patient had follow-up with blood pressure rechecked at home and primary care. May require increase in dose of lisinopril. Discharge Plan Departure Patient Disposition: Home Clinical Impression: Hypertension Activity Restrictions/Additional Instructions: Follow-up with your physician recheck. I would recommend starting a low-dose blood pressure medication called lisinopril. This medication can be titrated upwards if needed. Take your 1st dose today There is a short course of pain medication for your joint pain. This medication can make you sleepy do not drive, perform hazardous activities or make any major decisions while taking it. This medication will make you constipated please take a stool softener once to twice daily until stools are soft and regular. Prescription sent to [facility] in [place]. Please return for severe headaches, altered mental status, new chest pain, shortness of breath, numbness, tingling or weakness, facial droop difficulty with speech, passing out, persistent vomiting or other new or concerning changes. Prescriptions: New lisinopril 10 mg tablet 10 mg PO DAILY Qty: 30 0RF oxycodone-acetaminophen [Percocet] 5-325 mg tablet 1 tab PO Q6H PRN (Reason: pain) Qty: 7 0RF No Action (DME) Disabled Parking Permit See Rx Instructions .Route .MEDSUPPLY Qty: 1 0RF Rx Instructions: As directed naproxen 500 mg tablet See Rx Instructions .ROUTE .COMPLEX Qty: 60 5RF Dose Instruction: TAKE 1 TABLET BY MOUTH TWICE DAILY WITH FOOD. DO NOT TAKE WITH OTHER NSAIDS Rx Instructions: TAKE 1 TABLET BY MOUTH TWICE DAILY WITH FOOD. DO NOT TAKE WITH OTHER NSAIDS gabapentin 300 mg capsule See Rx Instructions .ROUTE .COMPLEX Qty: 270 11RF Dose Instruction: TAKE 3 CAPSULES BY MOUTH THREE TIMES DAILY Rx Instructions: TAKE 3 CAPSULES BY MOUTH THREE TIMES DAILY diclofenac sodium [Voltaren Arthritis Pain] 1 % gel 2 g topical QID PRN (Reason: pain) Qty: 100 0RF Rx Instructions: apply to single elbow, wrist or hand; for hand includes palm/fingers/back of hand Referrals: Sha Dyer DO [Primary Care Provider] - Stand Alone Forms: Patient Portal/API
== END 2023-06-16 13:02 | disposition home or self-care (01) ==
PROVIDERS: Emergency Provider Emergency Medicine; PCP Family Medicine
DX: I10 Essential (primary) hypertension (principal); R07.9 Chest pain, unspecified; R51.9 Headache, unspecified; H53.8 Other visual disturbances; Z79.899 Other long term (current) drug therapy
CPT/HCPCS: 36415; 70450; 71045; 80053; 81003; 82550; 83690; 83735; 84484; 85025; 85610; 85730; 93005; 99284

== ENCOUNTER → 2023-06-28 09:13 | Outpatient (CLI) | payer MEDICARE, BC, SELFPAY ==
--- NOTE | 2023-06-28 09:15 | DI.NM.S_ITS ---
PROCEDURE: NM BONE SCAN WHOLE BODY RADIOPHARMACEUTICAL: 21.0 mCi Tc-99m MDP IV. INDICATIONS: Pathological fracture, left ulna TECHNIQUE: Delayed whole-body scintigrams were obtained approximately 3-4 hours after intravenous injection of radiotracer. Anterior and posterior views were acquired from vertex to feet. Additional anterior and posterior views of the wrists and hands were obtained. COMPARISON: [facility], MR, MR WRIST RT WO CON, 06/30/2021, 16:45. [facility], CR, XR WRIST RT MIN 3V, 05/09/2021, 10:49. [facility], CR, XR CHEST 1V, 06/16/2023, 10:18. [facility], MR, MR WRIST LT WO/W CON, 06/14/2023, 17:43. [facility], CR, XR WRIST LT MIN 3V, 06/10/2023, 11:35. [facility], MR, LUMBAR SPINE WO CON, 01/17/2022, 12:17. [facility], CR, XR LUMBAR SPINE MIN 4V, 01/08/2022, 8:59. FINDINGS: There is focal increased activity in the area of the left distal ulna, correlating with radiographic finding of lucent lesions in the corresponding areas and a pathological fracture of the ulnar styloid. Increased uptake is also noted in the right wrist is compatible with degenerative/arthritic changes. Foci of mildly increased periarticular activity in fingers bilaterally are compatible with degenerative/arthritic changes. Delayed whole-body bone scan demonstrates foci of increased uptake in the anterior aspect of the 5th and 6th ribs, likely secondary to rib fractures. There are foci of increased uptake in cervical, thoracic and lumbar spine most likely secondary to degenerative disc and facet disease; early metastasis to spine could be obscured by degenerative changes. There are foci of increased periarticular activity in multiple other joints, most pronounced in shoulders, sternoclavicular joints, hips and both feet, compatible with degenerative/arthritic changes. Note is made of bilateral total knee arthroplasties. IMPRESSION: 1. There are foci of increased uptake in the area of the left distal ulna and the left scaphoid, correlating with radiographic finding of lucent lesions and pathological fracture of the ulnar styloid. 2. Degenerative changes in spine and multiple peripheral joints. 3. Foci of increased uptake in the right anterior 5th and 6th ribs, most likely secondary to rib fractures. Recommend radiographic correlation. Dictated by: Rojelio Dalton M.D. on 06/28/2023 at 14:38 Approved by: Rojelio Dalton M.D. on 06/28/2023 at 18:54
== END ==
LOC: NUCM 09:13
PROVIDERS: PCP Family Medicine; Referring Provider Orthopaedic Surgery; Visit Provider Orthopaedic Surgery
DX: M84.432A Pathological fracture, left ulna, initial encounter for fracture (principal)
CPT/HCPCS: 78306; A9503

== ENCOUNTER → 2023-07-26 12:31 | Outpatient (CLI) | payer MEDICARE, BC, SELFPAY ==
[2023-07-26 13:34] LABS: Cholesterol 200 mg/dL (140-199); HDL Cholesterol 39 mg/dL (40-60); LDL Cholesterol Calculated 115 mg/dL (<100); Triglycerides 230 mg/dL (35-150)
[2023-07-26 14:01] LABS: Prostate Specific Antigen Scrn 1.61 ng/mL (0.1-4.0)
== END ==
PROVIDERS: PCP Family Medicine; Referring Provider Family Medicine; Visit Provider Family Medicine
DX: Z12.5 Encounter for screening for malignant neoplasm of prostate (principal); E78.5 Hyperlipidemia, unspecified
CPT/HCPCS: 36415; 80061; G0103

== ENCOUNTER → 2023-08-15 10:01 | Outpatient (CLI) | payer MEDICARE, BC, SELFPAY ==
[2023-08-15 11:14] LABS: Alanine Aminotransferase 29 IU/L (<50); Albumin 4.4 g/dL (3.5-5.0); Albumin Globulin Ratio 1.4 (1.0-2.8); Alkaline Phosphatase 63 U/L (38-126); Aspartate Aminotransferase 30 IU/L (17-59); BUN Creatinine Ratio 32.4 (6-22); Bilirubin Total 0.7 mg/dL (0.2-1.3); Blood Urea Nitrogen 23 mg/dL (9-20); Calcium 8.9 mg/dL (8.4-10.2); Carbon Dioxide 26 mmol/L (22-32); Chloride 102 mmol/L (98-107); Estimated Glomerular Filt Rate > 60 mL/min (>60); Globulin 3.2 g/dL (1.7-4.1); Glucose 100 mg/dL (80-110); HEMOLYSIS 42 (0-50); Potassium 4.4 mmol/L (3.4-5.1); Sodium 138 mmol/L (137-145); Total Protein 7.6 g/dL (6.3-8.2)
== END ==
LOC: LAB 10:04
PROVIDERS: PCP Family Medicine; Referring Provider Nurse Practitioner Family; Visit Provider Nurse Practitioner Family
DX: I10 Essential (primary) hypertension (principal)
CPT/HCPCS: 36415; 80053

== ENCOUNTER 2023-10-17 14:30 | Outpatient (CLI) | payer MEDICARE, BC, SELFPAY ==
[2023-10-17] VITALS (7 sets, daily range): BP systolic 127–159; BP diastolic 63–78; PULSE 58–66; RESP 16–20; TEMP 36.7; O2SAT 95–97
--- NOTE | 2023-10-17 16:00 | DI.RAD.S_ITS ---
PROCEDURE: PAIN L INTERLAMINAR/CAUDAL INJ INDICATIONS: L5/S1 TL KRISSY COMPARISON: [facility], , PAIN L INTERLAMINAR/CAUDAL INJ, 10/09/2022, 15:14. FINDINGS: Fluoroscopic spot filming was performed to verify placement of spinal needles at the L5-S1 level(s), as labeled on the films. Appropriate location(s) of the needle tip(s) was confirmed by injection of iodinated contrast. IMPRESSION: Needle placement at the L5-S1 level. Please see procedural report for details. Dictated by: Jac Mondragon M.D. on 10/17/2023 at 17:05 Approved by: Jac Mondragon M.D. on 10/17/2023 at 17:05
[2023-10-17] MEDS: MIDAZOLAM 2 MG/2 ML VIAL IV (16:32)
[2023-10-17] MEDS: BETAMETHASONE 30 MG/5 ML MDV 6 MG INJ (16:38)
[2023-10-17] MEDS: DEXAMETHASONE 10 MG/ML VIAL INJ (16:38)
[2023-10-17] MEDS: iopamidoL 15 ML VIAL 3 ML INJ (16:38)
[2023-10-17] MEDS: BUPIVACAINE 0.25% (PF) VIAL 2 ML INJ (16:39)
--- NOTE | 2023-10-17 16:49 | P.PCN_ITS ---
Date/Time/Diagnoses Date of procedure: 10/17/23 Time of procedure: 16:49 Pre-procedure diagnosis: 1. HNP WITH RADICULAR FEATURES, 2. MULTILEVEL CENTRAL STENOSIS, Post-procedure diagnosis: same Procedure Notes Procedure: 1. FLUOROSCOPICALLY GUIDED CONTRAST CONTROLLED INTERLAMINAR EPIDURAL STEROID INJECTION - L5/S1 Indications: Tiffany is referred by Dr. Dyer for treatment of Bilateral Foraminal Stenosis L>R LE symptoms. Physician: Nilesh Jones Total Fluoroscopy time (seconds): 8 Total sedation minutes: 12 Complications: none Procedure in detail & Post-procedure care: FINDINGS Multilevel Central Spinal Stenosis with Nerve Root Compression DESCRIPTION OF PROCEDURE Fluoroscopically guided, contrast-controlled L5/S1 translaminar epidural steroid injection. Following review of allergy and review of potential side effects and complications, including, but not necessarily limited to, infection, allergic reaction, local tissue breakdown, temporary as well as permanent nerve injury, paralysis, stroke and possible , the patient indicated that the patient understood and agreed to proceed. An informed consent document was signed by the patient, witnessed by a nurse, and placed in the patient's chart. Additionally, other treatment options including modalities, medications, and physical therapy were reviewed with the patient. After review of previous anaesthesic history and IV conscious sedation the patient was deemed safe to proceed with today?s procedure with IV conscious sedation as ASA class II designation. Safety time-out was performed to confirm patient ID, procedure to be performed and site of procedure. IV sedation was accomplished with a combination of 2mg of Versed administered by the RN after DO order, titrated to patient comfort during the course of the procedure while the patient remained responsive to all verbal commands. In the prone position, following sterile prep and drape of the lumbar region, the L5/S1 translaminar space was identified fluoroscopically. The skin was anesthetized via a 25-gauge, 1.5-inch needle with 1% lidocaine solution. At this point, a 22-gauge short bevel spinal needle was atraumatically introduced and advanced under fluoroscopic guidance into the region of the L5/S1 translaminar space. Depth was confirmed on lateral view. Radiological data, including multiple fluoroscopic views of the lumbar spine, reveal a spinal needle at the L5/S1 translaminar space. Lateral views then show placement of the needle in the epidural space. Subsequent views show contrast material flowing superiorly and inferiorly in the epidural space. No vascular or intrathecal uptake is observed. At this point, using loss of resistance technique with saline and air, the epidural space was entered. This was confirmed following negative aspiration with injection of approximately 1.5cc of Isovue 200, showing excellent epidural flow without vascular or intrathecal uptake. At this point, 1 cc of 1% lidoc carrington solution combined with 2cc or 10mg of dexamethasone and 6mg of betamethasone was injected without incident. The patent tolerated the procedure without signs of symptoms of complications prior to transfer to the recovery area for further monitoring. The patient was then transferred to the recovery area where they were observed for an appropriate period of time after the injection. The patient reported a VAS score of 6 prior to the procedure and a post-procedure VAS of 0. POST OP INSTRUCTIONS The patient was provided a Pain Log to continue to record their response to the target-specific procedure prior to follow-up visit with their referring physician. Additionally, specific post-injection care instructions and a contact number to our office were provided if concerns arise regarding possible complications associated with the procedure are suspected.
== END 2023-10-17 17:02 | disposition home or self-care (01) ==
PROVIDERS: PCP Family Medicine; Referring Provider Physical Medicine & Rehabilitation; Visit Provider Physical Medicine & Rehabilitation
DX: M51.17 Intervertebral disc disorders with radiculopathy, lumbosacral region (principal); M48.07 Spinal stenosis, lumbosacral region
CPT/HCPCS: 62323; 99152; J0702; J1100; J2250; J3490

== ENCOUNTER → 2024-01-01 11:15 | Outpatient (CLI) | payer MEDICARE, BC, SELFPAY ==
[2024-01-01 12:37] LABS: Alanine Aminotransferase 29 IU/L (<50); Albumin 4.1 g/dL (3.5-5.0); Albumin Globulin Ratio 1.6 (1.0-2.8); Alkaline Phosphatase 77 U/L (38-126); Aspartate Aminotransferase 29 IU/L (17-59); BUN Creatinine Ratio 27.8 (6-22); Bilirubin Total 0.5 mg/dL (0.2-1.3); Blood Urea Nitrogen 25 mg/dL (9-20); Calcium 8.7 mg/dL (8.4-10.2); Carbon Dioxide 28 mmol/L (22-32); Chloride 107 mmol/L (98-107); Cholesterol 217 mg/dL (140-199); Estimated Glomerular Filt Rate > 60 mL/min (>60); Globulin 2.5 g/dL (1.7-4.1); Glucose 115 mg/dL (80-110); HDL Cholesterol 44 mg/dL (40-60); HEMOLYSIS < 15 (0-50); LDL Cholesterol Calculated 104 mg/dL (<100); Potassium 4.8 mmol/L (3.4-5.1); Sodium 139 mmol/L (137-145); Total Protein 6.6 g/dL (6.3-8.2); Triglycerides 346 mg/dL (35-150)
== END ==
PROVIDERS: Nurse Practitioner Family; PCP Family Medicine; Referring Provider Family Medicine; Visit Provider Family Medicine
DX: E78.5 Hyperlipidemia, unspecified (principal); I10 Essential (primary) hypertension
CPT/HCPCS: 36415; 80053; 80061

== ENCOUNTER 2024-07-02 14:25 | Outpatient (CLI) | payer MEDICARE, BC, SELFPAY ==
[2024-07-02] VITALS (8 sets, daily range): BP systolic 124–145; BP diastolic 60–78; PULSE 60–65; RESP 10–19; TEMP 36.6; O2SAT 94–99
--- NOTE | 2024-07-02 14:26 | DI.RAD.S_ITS ---
PROCEDURE: PAIN L INTERLAMINAR/CAUDAL INJ INDICATIONS: L5/S1 TL KRISSY COMPARISON: [facility], , PAIN L INTERLAMINAR/CAUDAL INJ, 10/17/2023, 16:37. FINDINGS/IMPRESSION: Fluoroscopic spot filming was performed to verify placement of spinal needles at the L5-S1 level(s), as labeled on the films. Appropriate location(s) of the needle tip(s) was confirmed by injection of iodinated contrast. Dictated by: Jamin Singh M.D. on 07/05/2024 at 8:47 Approved by: Jamin Singh M.D. on 07/05/2024 at 8:48
[2024-07-02] MEDS: MIDAZOLAM 2 MG/2 ML VIAL IV (15:50)
[2024-07-02] MEDS: DEXAMETHASONE 10 MG/ML VIAL INJ (15:53)
[2024-07-02] MEDS: BETAMETHASONE 30 MG/5 ML MDV 12 MG INJ (15:53)
[2024-07-02] MEDS: iopamidoL 15 ML VIAL 3 ML INJ (15:54)
[2024-07-02] MEDS: BUPIVACAINE 0.25% (PF) VIAL 2 ML INJ (15:54)
--- NOTE | 2024-07-02 16:05 | PM.PROC.IR.1 ---
Date/Time/Diagnoses Date of procedure: 07/02/24 Time of procedure: 16:05 Pre-procedure diagnosis: 1. HNP WITH RADICULAR FEATURES, 2. MULTILEVEL CENTRAL STENOSIS, Post-procedure diagnosis: same Procedure Notes Procedure: 1. FLUOROSCOPICALLY GUIDED CONTRAST CONTROLLED INTERLAMINAR EPIDURAL STEROID INJECTION - L5/S1 Indications: Ashutosh is referred by Dr. Dyer for treatment of Bilateral Foraminal Stenosis L>R LE symptoms. Physician: Nilesh Jones Total Fluoroscopy time (seconds): 8 Total sedation minutes: 12 Complications: none Procedure in detail & Post-procedure care: FINDINGS Multilevel Central Spinal Stenosis with Nerve Root Compression DESCRIPTION OF PROCEDURE Fluoroscopically guided, contrast-controlled L5/S1 translaminar epidural steroid injection. Following review of allergy and review of potential side effects and complications, including, but not necessarily limited to, infection, allergic reaction, local tissue breakdown, temporary as well as permanent nerve injury, paralysis, stroke and possible , the patient indicated that the patient understood and agreed to proceed. An informed consent document was signed by the patient, witnessed by a nurse, and placed in the patient's chart. Additionally, other treatment options including modalities, medications, and physical therapy were reviewed with the patient. After review of previous anaesthesic history and IV conscious sedation the patient was deemed safe to proceed with today?s procedure with IV conscious sedation as ASA class II designation. Safety time-out was performed to confirm patient ID, procedure to be performed and site of procedure. IV sedation was accomplished with a combination of 2mg of Versed administered by the RN after DO order, titrated to patient comfort during the course of the procedure while the patient remained responsive to all verbal commands. In the prone position, following sterile prep and drape of the lumbar region, the L5/S1 translaminar space was identified fluoroscopically. The skin was anesthetized via a 25-gauge, 1.5-inch needle with 1% lidocaine solution. At this point, a 22-gauge short bevel spinal needle was atraumatically introduced and advanced under fluoroscopic guidance into the region of the L5/S1 translaminar space. Depth was confirmed on lateral view. Radiological data, including multiple fluoroscopic views of the lumbar spine, reveal a spinal needle at the L5/S1 translaminar space. Lateral views then show placement of the needle in the epidural space. Subsequent views show contrast material flowing superiorly and inferiorly in the epidural space. No vascular or intrathecal uptake is observed. At this point, using loss of resistance technique with saline and air, the epidural space was entered. This was confirmed following negative aspiration with injection of approximately 1.5cc of Isovue 200, showing excellent epidural flow without vascular or intrathecal uptake. At this point, 1 cc of 1% lidocaine solution combined with 2cc or 10mg of dexamethasone and 6mg of betamethasone was injected without incident. The patent tolerated the procedure without signs of symptoms of complications prior to transfer to the recovery area for further monitoring. The patient was then transferred to the recovery area where they were observed for an appropriate period of time after the injection. The patient reported a VAS score of 6 prior to the procedure and a post-procedure VAS of 0. POST OP INSTRUCTIONS The patient was provided a Pain Log to continue to record their response to the target-specific procedure prior to follow-up visit with their referring physician. Additionally, specific post-injection care instructions and a contact number to our office were provided if concerns arise regarding possible complications associated with the procedure are suspected.
== END 2024-07-02 16:28 | disposition home or self-care (01) ==
LOC: RAD 14:25
PROVIDERS: PCP Family Medicine; Referring Provider Physical Medicine & Rehabilitation; Visit Provider Physical Medicine & Rehabilitation
DX: M51.17 Intervertebral disc disorders with radiculopathy, lumbosacral region; M48.07 Spinal stenosis, lumbosacral region
CPT/HCPCS: 62323; 99152; J0702; J1100; J2250; J3490

== ENCOUNTER 2024-09-08 10:16 | Emergency (ER) | payer MEDICARE, BC, SELFPAY ==
[2024-09-08 10:19] VITALS: BP 188/91; PULSE 101; RESP 17; TEMP 36.4; O2SAT 98; BMI 34.7
--- NOTE | 2024-09-08 10:23 | DI.RAD.S_ITS ---
PROCEDURE: XR CHEST 2V INDICATIONS: cough,left posterior rib pain TECHNIQUE: 2 views of the chest were acquired. COMPARISON: [facility], CR, XR CHEST 1V, 06/16/2023, 10:18. FINDINGS: Surgical changes and devices: None. Lungs and pleura: Lungs are clear. No pleural effusions or pneumothorax. Mediastinum: Mediastinal contours are normal. Heart size is normal. Bones and chest wall: No suspicious bony abnormalities. Soft tissues appear unremarkable. IMPRESSION: No acute cardiopulmonary pathology. Dictated by: Joey Huffman M.D. on 09/08/2024 at 10:39 Approved by: Joey Huffman M.D. on 09/08/2024 at 10:40
--- NOTE | 2024-09-08 12:24 | ED_ITS ---
HPI - URI/Sore Throat <Liz Woodard PA-C - Last Filed: 09/08/24 12:29> General Chief Complaint: Upper Respiratory Symptoms Stated Complaint: cough Time Seen by Provider: 09/08/24 11:27 Source: patient Mode of arrival: Ambulatory History of Present Illness HPI Narrative: 73-year-old male with past medical history hyperlipidemia, hypertension, depression, bipolar affective disorder presents to the ED with a persistent cough for 1 month. Patient states that his cough has worsened over the last week, is experiencing rib pain from the persistent coughing. Patient has been taking [id number]-[id number] cough remedies with minimal relief. No fever, chest pain, shortness of breath, vomiting. Related Data Previous Rx's Medication Instructions Recorded Disabled Parking Permit #1 ea 09/30/20 diclofenac sodium 1 % topical gel 2 g topical QID PRN pain #100 grams 09/18/21 (Voltaren Arthritis Pain) gabapentin 300 mg capsule See Rx Instructions .Route 01/23/24 .COMPLEX #180 caps sildenafil 25 mg tablet 25 mg PO DAILY PRN sexual activity 04/15/24 #30 tabs losartan 100 1 tab PO DAILY #90 tabs 06/09/24 mg-hydrochlorothiazide 12.5 mg tablet alprazolam 0.5 mg tablet (Xanax) 0.5 mg PO .COMPLEX PRN Pre MRI or 06/29/24 Procedure #5 tabs azithromycin 250 mg tablet See Rx Instructions PO .COMPLEX #6 09/08/24 (Zithromax Z-Marcelino) tabs benzonatate 200 mg capsule 200 mg PO TID PRN cough #30 caps 09/08/24 Allergies Allergy/AdvReac Type Severity Reaction Status Date / Time bacitracin [BACITRACIN] Allergy Mild Rash Verified 09/08/24 10:19 neomycin [NEOMYCIN] Allergy Mild Rash Verified 09/08/24 10:19 polymyxin B [POLYMYXIN B] Allergy Mild Rash Verified 09/08/24 10:19 Review of Systems <Liz Woodard PA-C - Last Filed: 09/08/24 12:29> Constitutional Constitutional: Reports chills, Denies fatigue, Denies fever(s), Denies frequent falls, Denies lethargy and Denies weakness Eyes Eyes: Denies change in vision, Denies eye discharge, Denies irritation and Denies loss of vision ENT Ears, Nose, Mouth, and Throat: Denies change in voice, Denies dizziness, Denies neck pain, Denies sore throat and Denies throat swelling Cardiovascular Cardiovascular: Denies chest pain, Denies irregular heart rhythm, Denies lightheadedness, Denies palpitations, Denies dyspnea, Denies dyspnea on exertion and Denies orthopnea Respiratory Respiratory: Reports cough, Reports pain with cough, Denies dyspnea, Denies dyspnea on exertion and Denies wheezing Gastrointestinal Gastrointestinal: Denies abdominal pain, Denies change in bowel habits, Denies diarrhea, Denies nausea and Denies vomiting Musculoskeletal Musculoskeletal: Denies neck pain and Denies numbness Integumentary/Breasts Skin/Breast: Denies pruritus, Denies erythema, Denies rash and Denies wounds Neurologic Neurologic: Denies behavioral changes, Denies confusion, Denies dizziness, Denies frequent falls, Denies loss of vision, Denies numbness and Denies weakness Psychiatric Psychiatric: Denies anxiety, Denies behavioral changes, Denies confusion, Denies depression, Denies homicidal ideation and Denies suicidal ideation Endocrine Endocrine: Denies fatigue, Denies flushing and Denies palpitations Hematologic/Lymphatic Hematologic/Lymphatic: Denies easy bruising Allergic/Immunologic Allergic/Immunologic: Denies urticaria, Denies throat swelling and Denies wheezing Patient History <Liz Woodard PA-C - Last Filed: 09/08/24 12:29> Medical History (Updated 09/08/24 @ 12:23 by Liz Woodard PA-C) Depression Hypertension Septic joint of left knee joint Spinal stenosis, lumbar region with neurogenic claudication Borderline hyperlipidemia Left ulnar fracture Right wrist pain Right otitis media Impacted cerumen Chronic low back pain Chronic knee pain after total replacement of both knee joints Cervical radiculopathy Bipolar I, recurrent manic episode, partial remission Lumbar spinal stenosis Surgical History History of carpal tunnel release of both wrists H/O lumbosacral spine surgery Family History Mother Dementia Father Lung cancer Cirrhosis of liver Social History household members: friend(s) Smoking Status: Former smoker Smoking Status: Former smoker alcohol intake frequency: 0-2 drinks per day Exam <Liz Woodard PA-C - Last Filed: 09/08/24 12:29> Narrative Exam Narrative: Const General:?cooperative, healthy appearing and comfortable HENHI Head:?normal to inspection Ears:?hearing grossly normal bilaterally Nose:?external nose normal Face and sinus:?normal facial exam and sinuses nontender Mouth:?oral mucosae normal Throat:?posterior oropharynx normal Eyes General:?appearance normal, both eyes and all related structures Neck Neck:?normal visual inspection and no lymphadenopathy noted Resp Effort & Inspection:?normal respiratory effort Auscultation:?clear to auscultation bilaterally Cardio Rate:?regular rate Rhythm:?regular rhythm Neuro General:?patient alert, patient awake and patient oriented x3 Initial Vital Signs Initial Vital Signs: Vital Signs Temperature 97.6 F 09/08/24 10:19 Pulse Rate 101 H 09/08/24 10:19 Respiratory Rate 17 09/08/24 10:19 Blood Pressure 188/91 H 09/08/24 10:19 Pulse Oximetry 98 09/08/24 10:19 Oxygen Delivery Method Room Air 09/08/24 10:19 <Alvin iTneo MD - Last Filed: 09/09/24 07:47> Initial Vital Signs Initial Vital Signs: Vital Signs Temperature 97.6 F 09/08/24 10:19 Pulse Rate 101 H 09/08/24 10:19 Respiratory Rate 17 09/08/24 10:19 Blood Pressure 188/91 H 09/08/24 10:19 Pulse Oximetry 98 09/08/24 10:19 Oxygen Delivery Method Room Air 09/08/24 10:19 Course <Liz Woodard PA-C - Last Filed: 09/08/24 12:29> Orders Ordered: ED Orders 09/08/24 10:23 Chest [XR chest 2V] Stat Vital Signs Vital signs: Vital Signs - 8 hr 09/08/24 10:19 Temperature 97.6 F Pulse Rate 101 H Respiratory Rate 17 Blood Pressure 188/91 H Pulse Oximetry 98 Oxygen Delivery Method Room Air <Alvin Tineo MD - Last Filed: 09/09/24 07:47> Orders Ordered: ED Orders 09/08/24 10:23 Chest [XR chest 2V] Stat Vital Signs Vital signs: Vital Signs - 8 hr 09/08/24 10:19 Temperature 97.6 F Pulse Rate 101 H Respiratory Rate 17 Blood Pressure 188/91 H Pulse Oximetry 98 Oxygen Delivery Method Room Air MDM - URI/Sore Throat <Liz Woodard PA-C - Last Filed: 09/08/24 12:29> [facility] Narrative Medical decision making narrative: 73-year-old male with past medical history hyperlipidemia, hypertension, depr ession, bipolar affective disorder presents to the ED with a persistent cough for 1 month. Chest x-ray was obtained which shows no acute cardiopulmonary findings. Prescribed Tessalon Perles, Z-Marcelino for clinical suspicion of possible pneumonia. Recommend follow-up with PCP as soon as possible. ED return precautions discussed with patient. Patient verbalized understanding. Medical records reviewed: Yes Discharge Plan Departure Patient Disposition: Home Clinical Impression: Cough Qualifiers: Cough type: acute Qualified Code(s): R05.1 - Acute cough Instructions: DI for Viral Upper Respiratory Infection -- Adult Activity Restrictions/Additional Instructions: You were evaluated in the ED today for a persistent cough. You are being prescribed an antibiotic and cough medication. You may also take any other mgsj-ltn-ctiqsnv cough and cold remedies. Please follow-up with your PCP as soon as possible. Return to the ED if you have worsening symptoms, chest pain, shortness of breath. Prescriptions: New benzonatate 200 mg capsule 200 mg PO TID PRN (Reason: cough) Qty: 30 0RF azithromycin [Zithromax Z-Marcelino] 250 mg tablet See Rx Instructions .ROUTE .COMPLEX Qty: 6 0RF Rx Instructions: For 250 mg dose pack: take 500 mg today (day 1), then 250 mg for 4 days (days 2-5) No Action (DME) Disabled Parking Permit See Rx Instructions .Route .MEDSUPPLY Qty: 1 0RF Rx Instructions: As directed gabapentin 300 mg capsule See Rx Instructions .ROUTE .COMPLEX Qty: 180 11RF Dose Instruction: TAKE 3 CAPSULES(900 MG) BY MOUTH THREE TIMES DAILY Rx Instructions: TAKE 2 CAPSULES(900 MG) BY MOUTH THREE TIMES DAILY sildenafil 25 mg tablet 25 mg PO DAILY PRN (Reason: sexual activity) Qty: 30 11RF Rx Instructions: administer 30 minutes to 4 hours before activity losartan-hydrochlorothiazide 100-12.5 mg tablet 1 tab PO DAILY Qty: 90 3RF alprazolam [Xanax] 0.5 mg tablet 0.5 mg PO .COMPLEX MDD 2 PRN (Reason: Pre MRI or Procedure) Qty: 5 0RF Rx Instructions: 0.5 mg orally PRN; diclofenac sodium [Voltaren Arthritis Pain] 1 % gel 2 g topical QID PRN (Reason: pain) Qty: 100 0RF Rx Instructions: apply to single elbow, wrist or hand; for hand includes palm/fingers/back of hand Referrals: Sha Dyer DO [Primary Care Provider] - Stand Alone Forms: Patient Portal/API/Survey ED Sign-out <Alvin Tineo MD - Last Filed: 09/09/24 07:47> Cosign ED Attending Cosavaature Attestation: I was immediately available in the department for consultation. ?This documentation has been reviewed and I agree with assessment and plan. Supervised by Alvin Tineo MD
[2024-09-08 12:27] VITALS: BP 167/94; PULSE 67; RESP 18; O2SAT 96
== END 2024-09-08 12:28 | disposition home or self-care (01) ==
PROVIDERS: Emergency Provider Student in an Organized Health Care Education/Training Program; PCP Family Medicine
DX: R05.1 Acute cough (principal)
CPT/HCPCS: 71046; 99281; 99283

== ENCOUNTER 2024-12-03 09:08 | Outpatient (CLI) | payer MEDICARE, BC, SELFPAY ==
[2024-12-03] VITALS (9 sets, daily range): BP systolic 111–193; BP diastolic 62–82; PULSE 55–71; RESP 16–22; TEMP 36.1; O2SAT 96–100
[2024-12-03] MEDS: MIDAZOLAM 2 MG/2 ML VIAL IV (10:59)
[2024-12-03] MEDS: MIDAZOLAM 2 MG/2 ML VIAL 1 MG IV (11:04)
[2024-12-03] MEDS: BUPIVACAINE 0.25% (PF) VIAL 2 ML INJ (11:09)
[2024-12-03] MEDS: BETAMETHASONE 30 MG/5 ML MDV 12 MG INJ (11:10)
[2024-12-03] MEDS: iopamidoL 15 ML VIAL 3 ML INJ (11:10)
[2024-12-03] MEDS: DEXAMETHASONE 10 MG/ML VIAL INJ (11:10)
--- NOTE | 2024-12-03 11:16 | PM.PROC.IR.1 ---
Date/Time/Diagnoses Date of procedure: 12/03/24 Time of procedure: 11:16 Pre-procedure diagnosis: 1. HNP WITH RADICULAR FEATURES, 2. MULTILEVEL CENTRAL STENOSIS, Post-procedure diagnosis: same Procedure Notes Procedure: 1. FLUOROSCOPICALLY GUIDED CONTRAST CONTROLLED INTERLAMINAR EPIDURAL STEROID INJECTION - L5/S1 Indications: Ashutosh is referred by Dr. Dyer for treatment of Bilateral Foraminal Stenosis L>R LE symptoms. Physician: Nilesh Jones Total Fluoroscopy time (seconds): 7 Total sedation minutes: 10 Complications: none Procedure in detail & Post-procedure care: FINDINGS Multilevel Central Spinal Stenosis with Nerve Root Compression DESCRIPTION OF PROCEDURE Fluoroscopically guided, contrast-controlled L5/S1 translaminar epidural steroid injection. Following review of allergy and review of potential side effects and complications, including, but not necessarily limited to, infection, allergic reaction, local tissue breakdown, temporary as well as permanent nerve injury, paralysis, stroke and possible , the patient indicated that the patient understood and agreed to proceed. An informed consent document was signed by the patient, witnessed by a nurse, and placed in the patient's chart. Additionally, other treatment options including modalities, medications, and physical therapy were reviewed with the patient. After review of previous anaesthesic history and IV conscious sedation the patient was deemed safe to proceed with today?s procedure with IV conscious sedation as ASA class II designation. Safety time-out was performed to confirm patient ID, procedure to be performed and site of procedure. IV sedation was accomplished with a combination of 3mg of Versed administered by the RN after DO order, titrated to patient comfort during the course of the procedure while the patient remained responsive to all verbal commands. In the prone position, following sterile prep and drape of the lumbar region, the L5/S1 translaminar space was identified fluoroscopically. The skin was anesthetized via a 25-gauge, 1.5-inch needle with 1% lidocaine solution. At this point, a 22-gauge short bevel spinal needle was atraumatically introduced and advanced under fluoroscopic guidance into the region of the L5/S1 translaminar space. Depth was confirmed on lateral view. Radiological data, including multiple fluoroscopic views of the lumbar spine, reveal a spinal needle at the L5/S1 translaminar space. Lateral views then show placement of the needle in the epidural space. Subsequent views show contrast material flowing superiorly and inferiorly in the epidural space. No vascular or intrathecal uptake is observed. At this point, using loss of resistance technique with saline and air, the epidural space was entered. This was confirmed following negative aspiration with injection of approximately 1.5cc of Isovue 200, showing excellent epidural flow without vascular or intrathecal uptake. At this point, 1cc of 0.25% marcaine solution combined with 3cc or 10mg of dexamethasone and 12mg of betamethasone was injected without incident. The patent tolerated the procedure without signs of symptoms of complications prior to transfer to the recovery area for further monitoring. The patient was then transferred to the recovery area where they were observed for an appropriate period of time after the injection. The patient reported a VAS score of 7 prior to the procedure and a post-procedure VAS of 1. POST OP INSTRUCTIONS The patient was provided a Pain Log to continue to record their response to the target-specific procedure prior to follow-up visit with their referring physician. Additionally, specific post-injection care instructions and a contact number to our office were provided if concerns arise regarding possible complications associated with the procedure are suspected.
== END 2024-12-03 12:20 | disposition home or self-care (01) ==
LOC: RAD 09:09
PROVIDERS: Family Provider Family Medicine; PCP Family Medicine; Referring Provider Physical Medicine & Rehabilitation; Visit Provider Physical Medicine & Rehabilitation
DX: M51.17 Intervertebral disc disorders with radiculopathy, lumbosacral region (principal); M48.07 Spinal stenosis, lumbosacral region
CPT/HCPCS: 62323; 99152; J0702; J1100; J2250

== ENCOUNTER → 2025-03-13 08:56 | Outpatient (CLI) | payer MEDICARE, BC, SELFPAY ==
--- NOTE | 2025-03-13 08:58 | DI.RAD.S_ITS ---
PROCEDURE: XR KNEE LT 3V INDICATIONS: left knee pain, history of left knee replacement TECHNIQUE: 3 views of the knee were acquired. COMPARISON: [facility], , KNEE 3V LEFT, 03/17/2015, 23:06. FINDINGS AND IMPRESSION: Left knee arthroplasty, similar appearance to prior. No displaced fracture is seen. There are small articular and periarticular ossifications as before. Peripatellar edema and small joint effusion. If there is further concern, consider cross-sectional imaging or multiphase bone scan Dictated by: Anuj Perez M.D. on 03/13/2025 at 9:18 Approved by: Anuj Perez M.D. on 03/13/2025 at 9:19
[2025-03-13 10:35] LABS: Add Manual Diff / Slide Review NO; Hematocrit 44.3 % (41-53); Hemoglobin 15.1 g/dL (13.5-17.5); Lymphocytes Absolute Auto 1300 /uL (1100-4500); Mean Corpuscular HGB Conc 34.1 % (30-36); Mean Corpuscular Hemoglobin 31.5 PG (26-34); Mean Corpuscular Volume 92.3 fL (80-100); Platelet Count 201 X10^3/uL (150-400)
[2025-03-13 10:53] LABS: Alanine Aminotransferase 26 IU/L (<50); Albumin 4.4 g/dL (3.5-5.0); Albumin Globulin Ratio 1.8 (1.0-2.8); Alkaline Phosphatase 63 U/L (38-126); Blood Urea Nitrogen 26 mg/dL (9-20); Calcium 8.9 mg/dL (8.4-10.2); Carbon Dioxide 26 mmol/L (22-32); Chloride 102 mmol/L (98-107); Cholesterol 236 mg/dL (140-199); Estimated Glomerular Filt Rate > 60 mL/min (>60); Globulin 2.5 g/dL (1.7-4.1); Glucose 102 mg/dL (70-99); HDL Cholesterol 50 mg/dL (40-60); HEMOLYSIS < 15 (0-50); Potassium 4.7 mmol/L (3.4-5.1); Sodium 137 mmol/L (137-145); Total Protein 6.9 g/dL (6.3-8.2); Triglycerides 120 mg/dL (35-150)
== END ==
PROVIDERS: Family Provider Family Medicine; PCP Family Medicine; Referring Provider Family Medicine; Visit Provider Family Medicine
DX: M25.562 Pain in left knee (principal); I10 Essential (primary) hypertension; Z12.5 Encounter for screening for malignant neoplasm of prostate; Z96.652 Presence of left artificial knee joint; M79.89 Other specified soft tissue disorders; E78.5 Hyperlipidemia, unspecified; R53.83 Other fatigue
CPT/HCPCS: 36415; 73562; 80053; 80061; 85025; G0103

== ENCOUNTER → 2025-06-21 10:17 | Outpatient (CLI) | payer MEDICARE, BC, SELFPAY ==
[2025-06-21 11:54] LABS: Alanine Aminotransferase 21 IU/L (<50); Albumin 4.6 g/dL (3.5-5.0); Albumin Globulin Ratio 1.7 (1.0-2.8); Alkaline Phosphatase 66 U/L (38-126); Blood Urea Nitrogen 17 mg/dL (9-20); Calcium 9.3 mg/dL (8.4-10.2); Carbon Dioxide 28 mmol/L (22-32); Chloride 101 mmol/L (98-107); Cholesterol 216 mg/dL (140-199); Estimated Glomerular Filt Rate > 60 mL/min (>60); Globulin 2.7 g/dL (1.7-4.1); Glucose 95 mg/dL (70-99); HDL Cholesterol 50 mg/dL (40-60); HEMOLYSIS < 15 (0-50); Potassium 4.5 mmol/L (3.4-5.1); Sodium 137 mmol/L (137-145); Total Protein 7.3 g/dL (6.3-8.2); Triglycerides 118 mg/dL (35-150)
== END ==
PROVIDERS: Family Provider Family Medicine; PCP Family Medicine; Referring Provider Family Medicine; Visit Provider Family Medicine
DX: E78.2 Mixed hyperlipidemia (principal); R79.9 Abnormal finding of blood chemistry, unspecified
CPT/HCPCS: 36415; 80053; 80061